=== PATIENT | male | born 1975 | race Caucasian/White ===

== ENCOUNTER 2024-08-12 06:34 | Inpatient (IN) | payer OTHER, SELFPAY ==
[2024-08-12] VITALS (11 sets, daily range): BP systolic 148–182; BP diastolic 81–107; PULSE 80; BMI 25.8
[2024-08-12 01:18] LABS: % Eosinophils 3.8 % (0-6); % Immature Granulocytes 1.9 % (0-0.5); % Lymphocytes 9.4 % (20.5-51.1); % Monocytes 7.9 % (1.7-9.3); Absolute Basophils 0.2 10^3/uL (0-0.2); Absolute Eosinophils 0.3 10^3/uL (0-0.7); Absolute Immature Granulocytes 0.2 10^3/uL (0-0.05); Absolute Lymphocytes 0.8 10^3/uL (1.2-3.4); Absolute Monocytes 0.7 10^3/uL (0.1-0.6); Absolute Neutrophils 6.6 10^3/uL (1.4-6.5); Hematocrit 40.5 % (39.0-52.0); Hemoglobin 14.6 g/dL (13.0-18.0); Mean Corpuscular Hgb 31.9 pg (27.0-31.0); Mean Corpuscular Volume 88.4 fL (80.0-94.0); Nucleated Red Blood Cells % 0 % (-); Red Blood Cell Count 4.58 10^6/uL (4.70-6.10); White Blood Cell Count 8.9 10^3/uL (4.8-10.8)
[2024-08-12 01:28] LABS: ALT (SGPT) 25 U/L (0-50); AST (SGOT) 37 U/L (17-59); Albumin 3.2 g/dl (3.5-5.0); Alkaline Phosphatase 125 U/L (38-126); Blood Urea Nitrogen 10 mg/dl (9-20); Carbon Dioxide 24 mmol/L (22-30); Chloride 103 mmol/L (98-107); Glucose 393 mg/dl (70-99); Potassium 3.5 mmol/L (3.5-5.1); Sodium 135 mmol/L (135-145); Total Bilirubin 2.2 mg/dl (0.2-1.3); Total Protein 6.2 g/dl (6.3-8.2); eGFR > 60.00
[2024-08-12 01:30] LABS: Alcohol None Detected
[2024-08-12 02:02] LABS: Mean Platelet Volume 10.6 fL (7.4-10.4); Platelet Count 80 10^3/uL (130-400)
--- NOTE | 2024-08-12 02:38 | ED.GENMED ---
History of Present Illness
General
Chief Complaint: Change in Mental Status
Source: patient
Exam Limitations: none
Time Seen by Provider: 08/12/24 02:34
History of Present Illness
History of Present Illness:
See MDM
Past History
Past History
ED Past Medical History: IDDM
ED Past Surgical History: None
Social History
Tobacco: Non-smoker
Alcohol: Chronic alcoholic
Phy Exam
Physical Exam
Physical Exam:
See MDM
Course
Orders/Labs/Results
Orders:
Orders
08/12/24 00:56
Alcohol Urgent
CMP [Comprehensive Metabolic Panel] Urgent
Complete Blood Count/With Diff Urgent
08/12/24 01:[address] [CT Head W/o Iv Contrast] Urgent
Comment:
Reason For Exam: change in mental status
08/12/24 02:38
0.9% Sodium Chloride 1000 ml [Nss] 1,000 ml IV BOLUS
Insulin Aspart [NOVOLOG vial] 5 units SC NOW STA
08/12/24 02:39
FOLic ACID [Folvite] 1 mg PO NOW STA
Thiamine HCl [Vitamin B1] 100 mg PO NOW STA
08/12/24 03:10
B-Hydroxybutyrate Stat
Comment: ADD ON
Glucose Stat
08/12/24 04:08
Add On- LAB Urgent
Tests Added?: B-hydroxybuterate
08/12/24 04:15
Urinalysis Reflex To Culture Urgent
Date Specimen was Collected: 08/12/24
Time Specimen was Collected: 04:14
Urine Drug Abuse Screen Urgent
Date Specimen was Collected: 08/12/24
Time Specimen was Collected: 04:14
Urine Microscopic Reflex Cult Urgent
08/12/24 04:47
Insulin Aspart [NOVOLOG vial] 5 units SC NOW STA
Abnormal Lab Results
08/12/24 08/12/24 08/12/24
00:56 02:56 03:10
RBC 4.58 L 10^6/uL
(4.70-6.10)
MCH 31.9 H pg
(27.0-31.0)
Plt Count 80 L 10^3/uL
(130-400)
MPV 10.6 H fL
(7.4-10.4)
Abs Immat Gran (auto) 0.2 H 10^3/uL
(0-0.05)
Absolute Neuts (auto) 6.6 H 10^3/uL
(1.4-6.5)
Absolute Lymphs (auto) 0.8 L 10^3/uL
(1.2-3.4)
Absolute Monos (auto) 0.7 H 10^3/uL
(0.1-0.6)
Immature Gran % 1.9 H %
(0-0.5)
Lymphocytes % 9.4 L %
(20.5-51.1)
Glucose 393 H mg/dl 328 H mg/dl
(70-99) (70-99)
Total Bilirubin 2.2 H mg/dl
(0.2-1.3)
Total Protein 6.2 L g/dl
(6.3-8.2)
Albumin 3.2 L g/dl
(3.5-5.0)
Ur Occult Blood Reflex
Urine Urobilinogen
Urine Glucose
Urine Albumin (Reflex)
B-Hydroxybutyrate 0.51 H mmol/L
(0.02-0.27)
POC Glucose 478 H* mg/dl
(70-99)
08/12/24
04:15
RBC
MCH
Plt Count
MPV
Abs Immat Gran (auto)
Absolute Neuts (auto)
Absolute Lymphs (auto)
Absolute Monos (auto)
Immature Gran %
Lymphocytes %
Glucose
Total Bilirubin
Total Protein
Albumin
Ur Occult Blood Reflex 2+ A
(Negative)
Urine Urobilinogen 2+ A
(Neg - 1+)
Urine Glucose 3+ A
(Negative)
Urine Albumin (Reflex) 3+ A
(Neg - Trace)
B-Hydroxybutyrate
POC Glucose
08/12/24 00:56
08/12/24 03:10
Vital Signs
Initial and Last Documented VS:
Initial Vital Signs
Temp Pulse Resp BP Pulse Ox
98.0 F 90 18 174/96 99
08/12/24 00:47 08/12/24 00:47 08/12/24 00:47 08/12/24 00:47 08/12/24 00:47
Last Documented Vital Signs
Temp Pulse Resp BP Pulse Ox
97.9 F 79 18 177/103 99
08/12/24 02:50 08/12/24 02:51 08/12/24 02:50 08/12/24 02:50 08/12/24 02:51
MDM/Problems Addressed
Differential Diagnosis Includes:
HPI and MDM Narrative:
49-year-old male presenting for evaluation of confusion. Patient comes from a snf house for alcohol recovery. He denies any recent alcohol or drug use. Patient states he feels confused. On exam, patient is ambulating without difficulty. He
is lying in bed without discomfort.
Patient found to be hyperglycemic. No evidence of DKA. Patient is clinically dry. Will give IV fluids and dose of insulin. Will obtain urinalysis and CT head
Physical exam
General: Well appearing and non-toxic
HEENT: protecting airway. Dry mucous membranes
Neck: appears supple
CV: No evidence of cyanosis
Resp: No accessory muscle use
Abd: Non-distended
Extremities: No deformities
Neuro: alert. No focal deficits. Appears mildly confused
Psych: Normal affect
Skin: Intact
Problems Addressed including Acute and Chronic Conditions affecting care:
1. Confusion
Acuity: acute
Prognosis: stable
Details: Will obtain CT head and urinalysis. Given his history of alcohol abuse, will give dose of thiamine and folic acid
2. Hyperglycemia
Acuity: acute
Prognosis: stable
Details: Will give dose of insulin. No evidence of DKA
Updates
CT head negative. Patient persistently hyperglycemic despite subcu insulin. Will give another dose of subcu insulin. Given the persistent symptoms, will admit
Differential Diagnosis (but not limited to): Hyperglycemia, drug abuse, intracranial hemorrhage
Testing considered: EKG
Drug therapy (if applicable): OTC meds, please see d/c instruction regarding Rx drugs
Amount and/or Complexity of Data Reviewed
Clinical info obtained from: Patient
External data reviewed: N/A
Labs I independently reviewed (but not limited to): Hyperglycemia, thrombocytopenia likely from alcohol abuse
Radiology: The CT scan was personally and independently reviewed. In addition, official CT report reviewed.
Pulse Ox: not hypoxic
EKG independently reviewed: N/A
Chemical Dependency Attendant: N/A
Critical Care: N/A
Risk of Complication:
Social Determinants of health: Good social support
Discussed with other providers: Hospitalist
Escalation of Care includes Admit/Obs: Given the persistent hyperglycemia and persistent confusion, will admit
Occasional wrong word or 'sound a like' substitutions may have occurred due to the inherent limitations of voice recognition software. Read the chart carefully and recognize, using context, where substitutions have occurred.
*Critical Care Note
Total Time (30-74mins, 75-104mins- exclusive of procedures): Not Applicable
ED Attending Note
-
Portions of this chart may have been created with voice recognition software.� Occasional wrong word or��sound alike� substitutions may have occurred due to the inherent limitations of voice recognition software.
Discharge Plan
Departure
Patient Disposition: Admit
Date of Disposition: 08/12/24
Time of Disposition: 04:51
Admit to: Med/Surg
Presentation/result/management discussed w/ accepting MD/DO: Hospitalist
Discharge Problem:
Acute confusion, Acute hyperglycemia
Referrals:
UNKNOWN - PT DOES,NOT KNOW [Family Provider] -
Interventions
Interventions:
*Risk Screen - Suicide Last Done: 08/12/24 03:08
*General Assessment Last Done: 08/12/24 03:08
*Neglect/Abuse Screening Last Done: 08/12/24 03:08
*ED COVID-19 Vaccine History Last Done: 08/12/24 01:10
ED Swallowing Screen Last Done: 08/12/24 03:03
Discharge Date and Time
Print Language: CYPRIOT
[2024-08-12] MEDS: NSS 1000 IV ×2 (02:53→09:05)
[2024-08-12] MEDS: VITAMIN B1 100 MG PO (02:54)
[2024-08-12] MEDS: FOLVITE 1 MG PO ×2 (02:54→09:05)
[2024-08-12 02:58] LABS: Glucose - Point of Care 478 mg/dl (70-99)
[2024-08-12] MEDS: NOVOLOG vial 5 UNITS SC ×2 (03:28→05:25)
[2024-08-12 04:03] LABS: Glucose 328 mg/dl (70-99)
[2024-08-12 04:26] LABS: Urine Albumin 3+ (Neg - Trace); Urine Bilirubin Negative (Negative); Urine Character Clear (Clear); Urine Color Yellow; Urine Glucose 3+ (Negative); Urine Ketone Negative (Negative); Urine Leukocyte Negative (Negative); Urine Nitrite Negative (Negative); Urine Occult Blood 2+ (Negative); Urine Urobilinogen 2+ (Neg - 1+); Urine pH 6.5 (5.0-9.0)
[2024-08-12 04:31] LABS: B-Hydroxybutyrate 0.51 mmol/L (0.02-0.27)
[2024-08-12 04:55] LABS: Urine Squamous Cell 0-2 /LPF (Few)
[2024-08-12 04:57] LABS: Urine Bacteria Few (Negative)
[2024-08-12 05:00] LABS: Amphetamines Negative (Negative); Barbiturates Negative (Negative); Benzodiazepines Negative (Negative); Buprenorphine Negative (Negative); Cocaine Negative (Negative); Marijuana Negative (Negative); Methadone Negative (Negative); Methamphetamines Negative (Negative); Opiates Negative (Negative); Phencyclidine Negative (Negative); Tricyclic Antidepressants Positive (Negative)
--- NOTE | 2024-08-12 05:35 | HPS.HSE ---
Family Physician
-
Family Physician: NOT KNOW UNKNOWN - PT DOES
Chief Complaint
-
Altered mental status
History of Present Illness
This is a 49-year-old who arrived to the emergency department via EMS for confusion.
History is very sparse as patient's condition prevents recovery of any useful information. Per EMS records the patient had called the police stating that this Was doing. He was living at a prison house for alcohol recovery at the time. Police
found that the patient never had a cath. EMS therefore transferred the patient to the emergency department for evaluation.
On my interview with the patient he endorsed high blood pressure and diabetes after being prompted. He did show me injection spots in his abdomen for subcutaneous insulin which she says he gives himself. However when I tried to admission about how
many units of insulin he supposed to give himself he has no idea. He states that he does not have any family that is parents have and his siblings have also . He states that he his mother 4 days ago. He states
his brother also 4 days ago. He said he got 2 days ago and has been looking for his ring. He endorsed alcohol but is unclear exactly how much. He states his last drink was several days ago. He says he a cane go to a 24 pack
case of alcohol drinking about 6 beers a day. He also mentions liquor but does not specify how much. He denies having been hospitalized for alcohol related maladies for the past. He currently endorses headache but otherwise denies any other
symptoms.
He was hypertensive to 170/110, he was nontachycardic his respiratory rate was 18 and he was afebrile. CBC was unremarkable except for a low platelet of 80. Electrolytes were also within normal limits. BUN and creatinine were within normal
limits. Initial fingerstick glucose was over 400. Blood glucose was elevated at 328. Total bilirubin was 2.2 AST and ALT were normal. He had a CT of the head which showed mild microangiopathy but no acute findings.
Medical History
Past Medical History
Past Medical History: Reports Other (Unable to obtain)
Past Surgical History: Reports Other (Unable to obtain)
Social History
Tobacco: Smoker
Alcohol: Chronic Alcoholic
Drug: Marijuana
Personal: Other (Unable to determine)
Living: With Roomate
Employment: Employed
Family History
Family History: Unable to Obtain
Allergies / Home Medications
Allergies reflects when Allergies were last updated in [facility].
Home Medications with original date entered in [facility]
Allergy/Medication List:
Allergies
Allergy/AdvReac Type Severity Reaction Status Date / Time
No Known Allergies Allergy Verified 08/12/24 02:46
No available medication list
Review of Systems
-
History Source: Patient
Constitutional: Reports No Symptoms
EENT: Reports No Symptoms
Respiratory: Reports No Symptoms
Cardiac: Reports No Symptoms
Abdomen/GI: Reports No Symptoms
: Reports No Symptoms
Musculoskeletal: Reports No Symptoms
Skin: Reports No Symptoms
Neurological: Reports Headache
Endocrine: Reports No Symptoms
Hematologic/Lymphatic: Reports No Symptoms
Psych: Reports Calm
Physical Exam
Vital Signs
Vital Signs
Temp Pulse Resp BP Pulse Ox
97.9 F 79 18 177/103 99
08/12/24 02:50 08/12/24 02:51 08/12/24 02:50 08/12/24 02:50 08/12/24 02:51
Physical Exam
General: Well Developed, No Apparent Distress, Comfortable and Conversant
HEENT: NormoCephalic, Anicteric, Moist mucous membranes and Atraumatic
Respiratory: Clear
Cardiac: S1/S2 and Regular Rhythm
Breast: Deferred by me
GI: Soft, Non Tender, Non Distended and Normal Bowel Sounds
Rectal: Deferred by Provider
Genito-urinary: Deferred by me
Musculoskeletal: No Clubbing, No Cyanosis and No Edema
Skin: Warm
Neuro: Awake, Alert and Oriented (oriented to person, place and time)
Hematologic/Lymphatic: No Lymphadenopathy
Psych: Calm
Laboratory Results
-
08/12/24 00:56
08/12/24 03:10
Laboratory Results
Total Bilirubin 2.2 mg/dl (0.2-1.3) H 08/12/24 00:56
AST 37 U/L (17-59) 08/12/24 00:56
ALT 25 U/L (0-50) 08/12/24 00:56
Alkaline Phosphatase 125 U/L (38-126) 08/12/24 00:56
Data Reviewed
-
CT Scan: Report Reviewed by me
Lab Data: Labs Reviewed by me
Impression/Plan
-
IMPRESSION:
Patient with h/o alcohol dependence brought to ED from alcohol recovery prison home for confusion. In ED he is alert and oriented and attempts to carry out a conversation. Follows simple commands. No focal deficits. Cranial nerves intact.
Pupils are equal and reactive. Poor memory and confabulates. Becomes tangential with extensive questioning. No tachycardia, hallucinations, tremors, tremulousness or diaphoresis to suggest acute ETOH withdrawal. Blood tests with low platelet,
elevated bili suggest chronic etoh dependence but no overt liver failure. He does not have agitated or stuporous encephalopathy. I suspect he has subacute or chronic neurological complications of ETOH versus underlying psychiatric illness. EToH
level is negative. Urine drug screen + for TCA. No family, friend or contact available for corroborating information.
PLAN:
1. Altered mental status - Suspect korsakoff syndrome versus Wernicke encephalopathy vs Toxic encephalopathy. This is not acute alcohol withdrawal syndrome.
- admit to telemetry
- thiamine 500mg iv q 8,folate, mvi
- ETOH withdrawal protocol
- check b12, folate, rpr, tsh
- u/a
- MRI brain in am
- neurology consultation
- psych consultation once cleared from toxic/metabolic encephalopathy
- cm for next of kin search
2. Diabetes - Hyperglycemia. Endorsed diabetes but unreliable history
- check a1c
- continue iv fluids for now
- lantus 5 daily and sliding scale insulin for now, oral agents pending a1c or additional home information
- check lipid panel and u/a as above
3. Hypertension -
- start low dose arb, titrate and additional agents as needed
- hydralazine for SBP > 180
DVT PPX - lovenox
Code status - full code
[2024-08-12] MEDS: NOVOLOG FLEXPEN-MODERATE RESISTANCE SC ×2 (08:53→17:42)
[2024-08-12] MEDS: THIAMINE INJECTION 255 MG IV ×2 (08:55→16:39)
[2024-08-12 08:58] LABS: Glucose - Point of Care 120 mg/dl (70-99)
[2024-08-12] MEDS: COZAAR 25 MG PO (09:05)
--- NOTE | 2024-08-12 09:10 | W.PN.UPDATE ---
Update Note
Progress Note Update
Patient seen and examined after postmidnight admission. Currently without acute complaints. Denies tremors, diaphoresis, hallucinations, etc. vital signs stable. Regular rate and rhythm, normal S1-S2. Clear to auscultation bilaterally. Cranials
2-12 are intact, nonfocal. Continue plan as outlined in the H&P done a few hours ago. Currently no indication for neurology consultation at this moment. Can consider later during hospitalization if needed.
[2024-08-12 09:12] LABS: Ammonia 31 umol/L (9-30)
[2024-08-12 09:13] LABS: Creatine Phosphokinase 192 U/L (55-170); Direct Bilirubin 0.6 mg/dl (0.0-0.4); GGTP 239 U/L (15-73); HDL Cholesterol 62 mg/dl; INR 1.13; LDL Cholesterol, Calculated 191 mg/dl; Magnesium 1.9 mg/dl (1.6-2.3); PT 14.8 Sec (11.4-14.6); Phosphorus 2.4 mg/dl (2.5-4.5); Total Cholesterol 278 mg/dl (50-199); Triglyceride 127 mg/dl (10-149); Very Low Density Lipoprotein 25 mg/dl (0-30)
[2024-08-12 09:14] LABS: APTT 28.6 Sec (23.4-35.0)
[2024-08-12 10:13] LABS: Glycohemoglobin (HgbA1c) 8.4 % (4.0-5.6)
--- NOTE | 2024-08-12 10:45 | CM ---
Addendum entered by Allyson Cardenas RN 08/12/24 18:33:
CM discussed possible [address] Hammond will consult psychiatry tomorrow to discuss 302 if patient attempts to leave again.
Addendum entered by Allyson Cardenas RN 08/12/24 14:08:
Dominic spoke with KAUSHIK Abdicase managers at [facility]. Trinidad provided Jia Alberts as patient's emergency contact [phone]. Jia is unknown relation to patient.
Trinidad stated that patient has been to [facility] and [facility] within the last year. She is unable to provide further information regarding patient's social situation.
Original Note:
CM spoke with patient. Patient stated that he feels very confused, but stated that he just got and his 's name is Sunil. The number provided for Sunil was not working. Patient had a cell phone with him, but was unable to unlock it as he
could not remember PIN number.
Patient did confirm that he is a patient of Dr. Toño Whitt in [facility]. CM spoke with PCP office. CM confirmed he is a patient of the practice. They do not have a contact for patient at this time; however, patient was recently at
[facility]. CM updated Dr. Randhawa.
CM left message for Case Management at [facility] for further collateral information.
[2024-08-12 12:54] LABS: Glucose - Point of Care 223 mg/dl (70-99)
[2024-08-12 13:19] LABS: TSH Reflex To Free T4 6.32 uIU/ml (0.47-4.68)
[2024-08-12 13:40] LABS: Glucose - Point of Care 179 mg/dl (70-99)
[2024-08-12] MEDS: NOVOLOG FLEXPEN-MODERATE RESISTANCE 1 UNITS SC (13:51)
[2024-08-12 13:55] LABS: Folate > 20.0 ng/ml (2.76-20); Vitamin B12 965 pg/ml (239-931)
[2024-08-12 14:29] LABS: Free T4 1.88 ng/dl (0.78-2.19)
--- NOTE | 2024-08-12 15:00 | PTCARENOTE ---
Received pt from ED via stretcher. Stretcher pulled in next to bed, pt able to stand and pivot into bed x1. AAOx1-2. Confused, forgetful. Pt stated, 'I can't believe I am on the [place]'. Bed alarm placed and plugged in. Call alves within close reach,
unable to verbalize understanding. Will cont to monitor.
[2024-08-12 15:48] LABS: Syphilis/T. pallidum Ab Reflex Negative (Negative)
[2024-08-12] MEDS: LOVENOX SC (17:42)
--- NOTE | 2024-08-12 17:42 | PTCARENOTE ---
Pt refused glucose and Lovenox. Pt increasingly agitated. Pt attempted to stand up and shake fist in this RN face, fell back down onto bed, unsteady. Pt stated, 'I have to go, I am getting tomorrow and I need to get my hair cut'. This RN
informed pt he will be staying the night. Pt raised voice at this RN and stated, 'You're all retarded, I am getting out of here no matter what' and slammed fist onto bed. made aware. MD at bedside.
--- NOTE | 2024-08-12 18:15 | W.PN.UPDATE ---
Update Note
Progress Note Update
Called to see because patient wanted to leave AMA.
Patient came in early hours of this morning.
Patient is alert and oriented to place, day and the month in the ER. When asked why he is in the hospital he says he is got bad blood which needs to come out.
In the immediate next sentence he says he is getting tomorrow and he needs to leave hospital. He can tell me where he is getting . He told the admitting doctor that he got 2 days ago and is being looking for his ring.
He also told admitting doctor that his mother 4 days ago and is brother 4 days ago.
Looking at the EMS record his chief complaint was fatigue and there was a change in mental status.
Dispatchnotes say patient was saying the roommate took his car. Complains of that the vehicle may be in the impound lot but could not explain further.
Upon EMS arrival police met EMS at the entry door the scene location is a recovery house for alcoholics. The patient called police to report his way car was stolen with other residents at the scene report the patient has not had awake alert the
location for the past 5 months. He was noted to have confused in conversation. Patient requested EMS due to suspecting medical emergency possibly diabetic.
He was not forthcoming with answers for all the questions by EMS.
So far in the hospital he had routine labs which showed increased blood sugars which are improved this afternoon. There is thrombocytopenia unclear if chronic. His first visit here. He had mild beta hydroxybutyrate acid but serum bicarb was
normal. Doubt DKA. His hemoglobin A1c is 8.4. He is eating and tolerating diet. He had an MRI of the brain which did not show any evidence of acute stroke.
His urine drug screen was positive for tricyclic otherwise negative. No alcohol was detected.
Apart from poorly controlled diabetes mellitus no obvious immediate medical acute findings to account for change in mental status. I suspect his current primary psychosis issue.
Consulted Dr Cali who is on-call.
If concern for safety of the patient she recommended 302. Advised me to contact crisis. 302 requires physician none and other person to sign.
Discussed with case management in the ER who knows him. He apparently had to inpatient psych hospitalizations in the past.
Patient currently having his dinner,.
Discussed with RN.
In case he threatens to leave please call security. Please fill in 302 paperwork in crisis center for 302. Psychiatrist with see in the morning.
[2024-08-12] MEDS: NSS IV (19:42)
[2024-08-12] MEDS: ATIVAN 1 MG IV (20:10)
[2024-08-12] MEDS: NSS (PRESERVATIVE FREE) 10 ML IV (20:10)
[2024-08-12 21:35] LABS: Glucose - Point of Care 319 mg/dl (70-99)
[2024-08-12] MEDS: NOVOLOG FLEXPEN 7 UNITS SC (22:36)
[2024-08-12] MEDS: THIAMINE INJECTION IV (22:41)
[2024-08-13 00:37] LABS: Glucose - Point of Care 225 mg/dl (70-99)
[2024-08-13 03:41] VITALS: BP 143/73
[2024-08-13] MEDS: NSS 1000 IV ×2 (05:44→14:52)
[2024-08-13 08:03] LABS: Glucose - Point of Care 198 mg/dl (70-99)
[2024-08-13 08:08] VITALS: BP 151/94
--- NOTE | 2024-08-13 08:11 | W.PN.HOSP.TC ---
Today's Communication/Plan
-
psych eval
Assessment / Plan
Assessment / Plan
Gen: NAD, AAOx3.
Eyes: EOMI, PERRLA, no scleral icterus.
Neck: supple.
CV: RRR, +S1/S2, no m/r/g.
Resp: CTAB, no rales, wheezes, or rhonchi.
Abd: +BS, soft, NT, ND
Skin: acneiform lesions on the face, posterior scalp
Neuro: CN 2-12 intact, non-focal.
Psych: Normal mood and affect.
MRI brain w/o: No acute intracranial abnormality. Parenchymal atrophy and chronic lacunar infarcts.
CXR: No radiographic evidence of acute cardiopulmonary abnormality. No metal or radiopaque foreign bodies within the chest.
Abd Xray: Non-obstructive bowel gas pattern. No metallic or radiopaque foreign bodies within the abdomen.
Abd U/S: Mildly enlarged and echogenic liver with lobular contour suspicious for cirrhosis. No hepatic lesions. Splenomegaly, presumably related to portal hypertension. Negative for cholelithiasis.
Acute change in mental status, likely due to acute psychosis:
-08/12/24 evening events noted
-psych consulted
-pt does not have decision making capacity. Cannot leave AMA. Should pt become aggressive/violent security needs to be called immediately.
-B12 965, folate > 20, TSH 6.32, fT4 1.88
-UDS POS for tricyclics
-syphilis NEG
DM2 with hyperglycemia:
-a1c 8.4%
-SSI/accuchecks/diabetic diet
-start Metformin 1000mg BID
Essential HTN:
-increase Losartan to 50mg daily
FULL/Lovenox
Total time spent on today's encounter was 50 minutes which included time spent in counseling the patient/family regarding diagnosis and treatment plan as listed above, goals of care, and symptom management. Case was discussed with nursing staff,
specialists, and care coordinators/case management. All labs and imaging personally reviewed by me. Remainder the time spent in detailed review of previous records, lab data, imaging, and other medical provider documentation.
Anticipated Discharge: Within 24 hours
Subjective/Interval History
-
Date of Service: August 13, 2024
Denies CP/SOB. Reports visual hallucinations of his ex-girlfriend.
Objective Data
-
Vital Signs:
Vital Signs
Temp Pulse Resp BP Pulse Ox
97.9 F 79 16 151/94 98
08/13/24 08:08 08/13/24 08:08 08/13/24 08:08 08/13/24 08:08 08/13/24 08:08
I&O
08/12/24 08/13/24 08/14/24
06:59 06:59 06:59
Intake Total 960 / 960
Output Total 450 / 450
Balance -450 / -450 960 / 960
[2024-08-13] MEDS: NOVOLOG FLEXPEN-MODERATE RESISTANCE 1 UNITS SC ×2 (08:14→16:24)
[2024-08-13] MEDS: THIAMINE INJECTION 255 MG IV ×2 (08:15→16:18)
[2024-08-13] MEDS: FOLVITE 1 MG PO (08:15)
[2024-08-13] MEDS: COZAAR 25 MG PO (08:15)
[2024-08-13] MEDS: ATIVAN 1 MG PO (08:16)
[2024-08-13 08:47] LABS: Hematocrit 35.8 % (39.0-52.0); Hemoglobin 12.8 g/dL (13.0-18.0); Mean Corp Hgb Conc. 35.8 g/dL (33.0-37.0); Mean Corpuscular Hgb 31.7 pg (27.0-31.0); Mean Corpuscular Volume 88.6 fL (80.0-94.0); Mean Platelet Volume 10.2 fL (7.4-10.4); Platelet Count 70 10^3/uL (130-400); Red Blood Cell Count 4.04 10^6/uL (4.70-6.10); Red Cell Dist. Width 14.1 % (11.5-14.5)
[2024-08-13 09:03] LABS: ALT (SGPT) 21 U/L (0-50); AST (SGOT) 31 U/L (17-59); Albumin 2.6 g/dl (3.5-5.0); Alkaline Phosphatase 103 U/L (38-126); Blood Urea Nitrogen 10 mg/dl (9-20); Calcium 8.3 mg/dl (8.4-10.2); Carbon Dioxide 24 mmol/L (22-30); Chloride 110 mmol/L (98-107); Estimated Creatinine Clearance 109 ml/min; Glucose 186 mg/dl (70-99); Potassium 3.2 mmol/L (3.5-5.1); Sodium 137 mmol/L (135-145); Total Bilirubin 1.7 mg/dl (0.2-1.3); Total Protein 5.1 g/dl (6.3-8.2); eGFR > 60.00
--- NOTE | 2024-08-13 11:09 | PTCARENOTE ---
MSAS 5 this am. ativan given pt now resting comfortably. K of 3.2 md aware
[2024-08-13 11:49] LABS: Glucose - Point of Care 294 mg/dl (70-99)
[2024-08-13 11:52] VITALS: BP 148/87
--- NOTE | 2024-08-13 12:45 | CON.MD ---
Consultation - Medical
-
Chart reviewed/ pt seen -45 minutes
This 49 year old white male was admitted to the hospital yesterday after presenting to the ER in a confused state. He wanted to sign out of the hospital yesterday, but was convinced to stay until today.
Pt has been making bizarre statement, claiming he is supposed to get today, that he saw his mom and brother 4 days ago not moving, frozen, but when he looked later they were not there.
He says that he has been living at a 'Sober House'- at [address] [place] [address] Road. He says there is no name for this sober house.
Cannot tell me when he last had a drink, but says he typically drinks '6 beers and [place].'
Pt is on Seroquel 300 mg HS and Trazodone 100 mg HS. Says his dr is Dr Whitt, from [facility]. Pt does not know his diagnosis.
Was hospitalized a few times for 'cocaine and alcohol.'
MSE-
Somnolent, but arousable. malodorous.
Thoughts are lillogical; pt confabulates. No paranoia, no suicidal or homicidal ideation.
He cannot count backwards from 10. However he is oriented to date and year. His short term memory is severely impaired. He believes that his memory was harmed by 'gadolinium dye from MRI's.'
Insight and judgment poor.
A/P- Wernicke's encephalopathy likely.
Would restart Seroquel 300 mg.
Pt not able to care for himself at this time, but I do not see grounds for a 302 commitment. He may need an assessment for incompetence. His condition is most likely related to alcohol and drug abuse.
302 commitment would not be appropriate without a primary psychiatric diagnosis.
Social work should try to reach our to any family members if they can be identified.
--- NOTE | 2024-08-13 12:47 | CON.MD ---
Consultation - Medical
-
error
[2024-08-13] MEDS: KCL 40 MEQ PO (12:51)
[2024-08-13] MEDS: NOVOLOG FLEXPEN-MODERATE RESISTANCE 5 UNITS SC (12:51)
[2024-08-13] MEDS: SEROQUEL 300 MG PO (14:51)
[2024-08-13 16:03] VITALS: BP 157/86
[2024-08-13] MEDS: LOVENOX 40 MG SC (16:18)
[2024-08-13] MEDS: GLUCOPHAGE 1000 MG PO (16:18)
[2024-08-13] MEDS: DUPHALAC/CHRONULAC 20 GRAMS PO (16:20)
[2024-08-13 16:24] LABS: Glucose - Point of Care 183 mg/dl (70-99)
[2024-08-13] MEDS: NICODERM TRANSDERMAL 14 MG TRANSDERM (17:23)
[2024-08-13 19:10] VITALS: BP 146/84
[2024-08-13 23:15] VITALS: BP 136/67
[2024-08-14] MEDS: THIAMINE INJECTION 255 MG IV ×2 (01:18→09:10)
[2024-08-14 03:24] VITALS: BP 157/88
[2024-08-14] MEDS: NSS 1000 IV (04:15)
[2024-08-14] MEDS: ATIVAN 1 MG PO ×2 (05:52→10:13)
[2024-08-14 07:45] VITALS: BP 169/98
[2024-08-14 08:17] LABS: Hematocrit 38.1 % (39.0-52.0); Hemoglobin 12.8 g/dL (13.0-18.0); Mean Corp Hgb Conc. 33.6 g/dL (33.0-37.0); Mean Corpuscular Hgb 31.8 pg (27.0-31.0); Mean Corpuscular Volume 94.8 fL (80.0-94.0); Mean Platelet Volume 10.9 fL (7.4-10.4); Platelet Count 59 10^3/uL (130-400); Red Blood Cell Count 4.02 10^6/uL (4.70-6.10); Red Cell Dist. Width 14.4 % (11.5-14.5); White Blood Cell Count 4.6 10^3/uL (4.8-10.8)
[2024-08-14 08:42] LABS: Blood Urea Nitrogen 11 mg/dl (9-20); Calcium 8.4 mg/dl (8.4-10.2); Carbon Dioxide 18 mmol/L (22-30); Chloride 113 mmol/L (98-107); Estimated Creatinine Clearance 123 ml/min; Glucose 286 mg/dl (70-99); Potassium 3.5 mmol/L (3.5-5.1); Sodium 138 mmol/L (135-145); eGFR > 60.00
[2024-08-14] MEDS: COZAAR 50 MG PO (09:07)
[2024-08-14] MEDS: FOLVITE 1 MG PO (09:08)
[2024-08-14] MEDS: NOVOLOG FLEXPEN-MODERATE RESISTANCE SC ×2 (09:08→11:45)
[2024-08-14] MEDS: GLUCOPHAGE 1000 MG PO (09:08)
[2024-08-14] MEDS: DUPHALAC/CHRONULAC 20 GRAMS PO (09:08)
[2024-08-14] MEDS: NICODERM TRANSDERMAL 14 MG TRANSDERM (09:11)
--- NOTE | 2024-08-14 10:33 | W.PN.HOSP.TC ---
Today's Communication/Plan
-
d/c
Assessment / Plan
Assessment / Plan
Gen: NAD, AAOx3.
Eyes: EOMI, PERRLA, no scleral icterus.
Neck: supple.
CV: RRR, +S1/S2, no m/r/g.
Resp: CTAB, no rales, wheezes, or rhonchi.
Abd: +BS, soft, NT, ND
Skin: acneiform lesions on the face, posterior scalp
Neuro: CN 2-12 intact, non-focal.
Psych: Normal mood and affect.
MRI brain w/o: No acute intracranial abnormality. Parenchymal atrophy and chronic lacunar infarcts.
CXR: No radiographic evidence of acute cardiopulmonary abnormality. No metal or radiopaque foreign bodies within the chest.
Abd Xray: Non-obstructive bowel gas pattern. No metallic or radiopaque foreign bodies within the abdomen.
Abd U/S: Mildly enlarged and echogenic liver with lobular contour suspicious for cirrhosis. No hepatic lesions. Splenomegaly, presumably related to portal hypertension. Negative for cholelithiasis.
Acute change in mental status, likely due to acute psychosis:
-08/12/24 evening events noted
-psych following, no indication for 302
-today pt has decision making capacity
-B12 965, folate > 20, TSH 6.32, fT4 1.88
-UDS POS for tricyclics
-syphilis NEG
DM2 with hyperglycemia:
-a1c 8.4%
-SSI/accuchecks/diabetic diet
-cont Metformin 1000mg BID
Essential HTN:
-cont Losartan 50mg daily
-start Norvasc 5
FULL/Lovenox
Medically cleared for d/c, case management aware.
Anticipated Discharge: Today
Subjective/Interval History
-
Date of Service: August 14, 2024
Objective Data
-
Labs:
Laboratory Results
08/14/24
06:32
WBC 4.6 L
Hgb 12.8 L
Hct 38.1 L
Plt Count 59 L
Sodium 138
Potassium 3.5
Chloride 113 H
Carbon Dioxide 18 L
BUN 11
Creatinine 0.8
Glucose 286 H
Calcium 8.4
Vital Signs:
Vital Signs
Temp Pulse Resp BP Pulse Ox
98 F 86 16 169/98 100
08/14/24 07:45 08/14/24 07:45 08/14/24 07:45 08/14/24 07:45 08/14/24 07:45
I&O
08/13/24 08/14/24 08/15/24
06:59 06:59 06:59
Intake Total 960 / 960 960 / 960
Output Total 1350 / 1350
Balance 960 / 960 -390 / -390
[2024-08-14] MEDS: NORVASC 5 MG PO (11:41)
[2024-08-14] MEDS: NSS IV (11:55)
--- NOTE | 2024-08-14 12:04 | W.PN.UPDATE ---
Update Note
Progress Note Update
patient seen chart reviewed. the patient does continue to complain of visual hallucinations. he is denying that he is suicidal or depressed. he says he does not hear things. he denies that he has used etoh 'except for a sip' for about six years
and he has not used mj the only other drug he used to use in three years. he has had some rx psychiatrically as he has taken seroquel in the past and he does have a doctor in [place]. he has a place to live in a recovery house in [facility].
he wants to leave . he is fully oriented. he does not appear to be a danger to himself or others. he has a place to live. i did tell him that visual hallucinations are not a common primary psych sx and can be due to neurological issues, detox,
substance abuse and eye issues (macular degeneration glaucoma etc even diabetes if affecting his extraoccularl muscles and causing diplopia which he could interpret as a hallucination. if they continue he should at the very least have his eyes
examined and talk to his pcp . he should continue to remain sober.
[2024-08-14 12:18] VITALS: BP 172/102
--- NOTE | 2024-08-14 13:00 | CM ---
Spoke with attending who stated that patient is medically cleared for discharge. Met with patient who is agreeable to discharge and confirmed that he will go back to his alcohol rehab. He confirmed transportation, stating that he would be able to
get there by [employer]. FAULKNER and attending updated.
Plan: Case management will continue to follow and assist with discharge planning. Back to rehab.
--- NOTE | 2024-08-14 13:19 | W.PN.UPDATE ---
Update Note
Progress Note Update
Patient with diagnosis of Warnicke's encephalopathy as per psychiatry. Would continue IV thiamine today to complete 3 days and switched over to oral alone tomorrow. Will start oral thiamine in addition to IV thiamine today. Also, will need
diabetes nurse practitioner to see the patient.
--- NOTE | 2024-08-14 14:01 | PTCARENOTE ---
patient at this time notified RN that he would like to leave AMA. Dr Randhawa notified. IVs removed, telemetry removed. AMA paper signed. Patient safely walked to from [facility] with this RN.
--- NOTE | 2024-08-16 16:17 | W.DCSUMMARY ---
Discharge Summary
Discharge Data
Date of Admission: 08/12/24
Date of Discharge: 08/14/24
-
Pending Results: No
Hospital Course
Primary diagnoses:
Acute change in mental status likely due to acute Wernicke's encephalopathy
Type 2 diabetes mellitus with hyperglycemia
Essential hypertension
Secondary diagnoses:
h/o substance abuse, reportedly cocaine and alcohol
Consults:
Psychiatry
Imaging:
MRI brain w/o: No acute intracranial abnormality. Parenchymal atrophy and chronic lacunar infarcts.
CXR: No radiographic evidence of acute cardiopulmonary abnormality. No metal or radiopaque foreign bodies within the chest.
Abd Xray: Non-obstructive bowel gas pattern. No metallic or radiopaque foreign bodies within the abdomen.
Abd U/S: Mildly enlarged and echogenic liver with lobular contour suspicious for cirrhosis. No hepatic lesions. Splenomegaly, presumably related to portal hypertension. Negative for cholelithiasis.
49-year-old male presented with chief complaint of altered mental status outlined in the H&P done on admission. Hospital discharge problems:
Acute change in mental status, likely due to acute Wernicke's encephalopathy: Workup was notable for B12 965, folate > 20, TSH 6.32, fT4 1.88, UDS POS for tricyclics, syphilis NEG. patient was seen in consultation by psychiatry there is no
indication for a 302. Patient was treated with high-dose IV thiamine. Patient left AGAINST MEDICAL ADVICE (at which time he did have decision-making capacity) before inpatient treatment was completed.
DM2 with hyperglycemia: The patient's a1c was 8.4%. He received sliding scale insulin while hospitalized. He was placed on metformin.
Essential HTN: The patient was started on losartan and Norvasc while hospitalized.
The patient left AGAINST MEDICAL ADVICE on August 14, 2024.
Discharge Plan
-
Patient Disposition: Home (Routine Discharge)
Discharge Diagnosis/Procedures: Acute change in mental status, possibly Wernicke's encephalopathy
Condition: Good
Diet: Diabetic, Carb Controlled
Activity: No restrictions
Driving Restrictions: As prior to admission
Blood Work: BMP, magnesium, CBC in 1 week, prescription from PCP
Activity Restrictions/Additional Instructions:
You need to check your blood glucose 30 minutes before meals and before bedtime and keep a diary for your primary care physician.
Referrals:
UNKNOWN - PT DOES,NOT KNOW [Family Provider] - in less than 1 week
Prescriptions:
New
folic acid 1 mg Tablet
1 mg PO DAILY Qty: 0 0RF
thiamine HCl (vitamin B1) 100 mg capsule
100 mg PO DAILY Qty: 30 0RF
Continued
quetiapine [Seroquel] 300 mg Tablet
300 mg PO HS
trazodone 100 mg Tablet
100 mg PO HS
insulin lispro [Humalog U-100 Insulin] 100 unit/mL Solution
26 sliding scale dose SC AC
hydroxyzine pamoate 25 mg Capsule
50 mg PO DAILY
lactulose 10 gram/15 mL Solution
20 g PO TID
insulin glargine [Basaglar KwikPen U-100 Insulin] 100 unit/mL (3 mL) Insulin Pen
60 unit SC QPM
amlodipine [Norvasc] 5 mg Tablet
5 mg PO DAILY Qty: 30 0RF
carvedilol [Coreg] 6.25 mg Tablet
6.25 mg PO BID Qty: 60 0RF
spironolactone 100 mg Tablet
100 mg PO DAILY Qty: 30 0RF
Discharge Orders:
Discharge Patient (As Directed); Ordered 08/14/24
Ordered By: Avtar Randhawa
Discharge Date and Time
Discharge Date/Time: 08/14/24 15:05
Print Language: ARABIC
== END 2024-08-14 15:05 | disposition left against medical advice (07) | DRG 641 ==
LOC: 3 WEST ACU 06:34
PROVIDERS: ADMITTING PHYSICIAN Internal Medicine; ATTENDING PHYSICIAN Internal Medicine; CONSULT PHYSICIAN Psychiatry & Neurology Psychiatry; EMERGENCY PHYSICIAN Student in an Organized Health Care Education/Training Program
DX: E51.2 Wernicke's encephalopathy (principal); K76.6 Portal hypertension; R41.82 Altered mental status, unspecified; E11.65 Type 2 diabetes mellitus with hyperglycemia; F10.20 Alcohol dependence, uncomplicated; F14.10 Cocaine abuse, uncomplicated; D69.59 Other secondary thrombocytopenia; I10 Essential (primary) hypertension; F17.200 Nicotine dependence, unspecified, uncomplicated; R44.1 Visual hallucinations; R16.1 Splenomegaly, not elsewhere classified; Z63.4 Disappearance and death of family member; Z53.29 Procedure and treatment not carried out because of patient's decision for other reasons; Z79.4 Long term (current) use of insulin
CPT/HCPCS: 70450; 70551; 71046; 74018; 76700; 80048; 80053; 80061; 80306; 81003; 81015; 82010; 82077; 82140; 82248; 82550; 82607; 82746; 82947; 82962; 82977; 83036; 83735; 84100; 84439; 84443; 85025; 85027; 85610; 85730; 86780; 87070; 96372; 97162; 99285

== ENCOUNTER 2024-08-17 08:08 | Emergency (ER) | payer OTHER, SELFPAY ==
[2024-08-17 12:26] LABS: Glucose - Point of Care 237 mg/dl (70-99)
--- NOTE | 2024-08-17 12:26 | ED.GENMED ---
History of Present Illness
<DO Braulio Camilo Filed: 08/18/24 22:24>
General
Chief Complaint: Fall
Source: patient
Time Seen by Provider: 08/17/24 09:34
History of Present Illness
History of Present Illness:
49-year-old male presents to the emergency room complaining of falling down steps and striking his head. Patient states he was carrying a laundry basket when he lost his balance and fell. He sustained a laceration to his left ear. Patient also
complaining of left knee pain. He denies loss of consciousness. He does not take any oral anticoagulants but he does have a history of low platelet count. Patient has been able to weight-bear on the left leg but does have pain with movement.
Past History
<DO Braulio Camilo Last Filed: 08/18/24 22:24>
Past History
ED Past Medical History: IDDM
ED Past Surgical History: None
Social History
Tobacco: Non-smoker
Alcohol: Chronic alcoholic
Phy Exam
<DO Braulio Camilo Last Filed: 08/18/24 22:24>
Physical Exam
Physical Exam:
General: Awake, Alert, Oriented X3. No acute distress.
Vitals: unremarkable
Head: Atraumatic
Ear: Laceration noted to the lobule of the ear extending up towards the inner aspect of the helix.
Face: Multiple abrasions to the left cheek
Eyes: Pupils equal, EOMI
Throat: Airway intact, no exudates
Neck: Trachea midline
Lungs: Clear and equal b/l
Heart: Regular rate, no murmurs
Abd: Soft, Nontender, No pulsatile mass
Neuro: Nonfocal
Skin: Warm, dry, no rash
Extremities: pulses equal b/l, no edema
Course
<DO Braulio Camilo Last Filed: 08/18/24 22:24>
Orders/Labs/Results
Orders:
Orders
08/17/24 12:08
CT Head W/o Iv Contrast Urgent
Comment:
Reason For Exam: fall,head injury
08/17/24 12:31
Knee, Left 4 or More Views [CR Knee - Left 4 Or More View*] Urgent
Comment:
Reason For Exam: pain after a fall
08/17/24 14:36
Ariel Wrap Left-Treatment ONCE
08/17/24 15:55
Crutches-Treatment ONCE
Knee Immobilizer Left-Treatmen ONCE
08/17/24 16:00
Lidocaine [Lidocaine 4% Patch] 1 patch TOPICAL ONCE ONE
Apply Lidocaine patch(s) to:: knee
08/17/24 16:03
Bacitracin Zinc [Bacitracin Ointment] 1 applic .ROUTE .STK-MED ONE
08/17/24 16:05
Tetanus/Diphth/Acelpertussis [Adacel] 0.5 ml IM .ONCE ONE
Abnormal Lab Results
08/17/24
12:25
POC Glucose 237 H mg/dl
(70-99)
Vital Signs
Initial and Last Documented VS:
Initial Vital Signs
Temp
97.5 F
08/17/24 08:20
Last Documented Vital Signs
Temp Pulse Resp BP Pulse Ox
97.5 F 74 18 150/74 99
08/17/24 08:20 08/17/24 12:48 08/17/24 12:48 08/17/24 12:48 08/17/24 12:48
<Honorio Mederos MD - Last Filed: 08/17/24 16:05>
Orders/Labs/Results
Orders:
Orders
08/17/24 12:08
CT Head W/o Iv Contrast Urgent
Comment:
Reason For Exam: fall,head injury
08/17/24 12:31
Knee, Left 4 or More Views [CR Knee - Left 4 Or More View*] Urgent
Comment:
Reason For Exam: pain after a fall
08/17/24 14:36
Ariel Wrap Left-Treatment ONCE
08/17/24 15:55
Crutches-Treatment ONCE
Knee Immobilizer Left-Treatmen ONCE
08/17/24 16:00
Lidocaine [Lidocaine 4% Patch] 1 patch TOPICAL ONCE ONE
Apply Lidocaine patch(s) to:: knee
08/17/24 16:03
Bacitracin Zinc [Bacitracin Ointment] 1 applic .ROUTE .STK-MED ONE
08/17/24 16:05
Tetanus/Diphth/Acelpertussis [Adacel] 0.5 ml IM .ONCE ONE
Abnormal Lab Results
08/17/24
12:25
POC Glucose 237 H mg/dl
(70-99)
Vital Signs
Initial and Last Documented VS:
Initial Vital Signs
Temp
97.5 F
08/17/24 08:20
Last Documented Vital Signs
Temp Pulse Resp BP Pulse Ox
97.5 F 74 18 150/74 99
08/17/24 08:20 08/17/24 12:48 08/17/24 12:48 08/17/24 12:48 08/17/24 12:48
Procedures
Roblt;Willis Parra, DO - Last Filed: 08/18/24 22:24>
Laceration Closure
Left Ear:
Size of Wound in cm: 2
Description of Wound Edges: ragged and flap-poorly vascularized
Preparation: cleaned with saline
Anesthesia: 1% Lidocaine
Revision/Debridement: minor revision and debrided
Wound exploration: explored to base- no FB
Type of Closure: single layer closure
Skin Closure Material: 5-0 nylon
Number of sutures: 13
Additional information:
Major portion of the laceration was a straightforward laceration but the most inferior aspect involved a flap which was closed with a corner stitch. There is also a separate laceration to the tip of the lobule. This had a small flap which appeared
dusky and poorly vascularized. This was debrided and the wound closed with 2 sutures. r
<Willis Parra DO - Last Filed: 08/18/24 22:24>
MDM/Problems Addressed
Differential Diagnosis Includes:
Left ear laceration, concussion, subdural, left knee fracture
<Willis Parra DO - Last Filed: 08/18/24 22:24>
*Critical Care Note
Total Time (30-74mins, 75-104mins- exclusive of procedures): Not Applicable
<Honorio Mederos MD - Last Filed: 08/17/24 16:05>
Update Note
Update Note:
UPDATE (Honorio Mederos MD)
I have seen and evaluated the patient after signout and reviewed all labs and imaging.
Focused HPI: 49-year-old male presenting after mechanical fall as described above. Laceration to the left ear. Also injured left knee. CT head negative. He has contusion and effusion in the left knee, x-ray read pending. Laceration repaired.
Tetanus updated.
Physical exam: Awake alert. Ear laceration status postrepair with sutures in place. He has an abrasion to the left knee/kruger, contusion to the left knee with joint effusion. He is able to move knee through reasonable range of motion somewhat
limited by swelling.
Medical Decision Making: Patient presented after a fall with head strike, laceration to the ear which was repaired. Tetanus updated. CT head negative. Injured left knee, x-ray read pending on signout�reviewed radiology report patient does have a
small vertical patellar fracture. Will place in knee immobilizer. Provide crutches. Spoke to patient about RICE. Referred to orthopedic for outpatient follow-up. All questions answered.
ED Attending Note
<Willis Parra DO - Last Filed: 08/18/24 22:24>
-
Portions of this chart may have been created with voice recognition software.� Occasional wrong word or��sound alike� substitutions may have occurred due to the inherent limitations of voice recognition software.
Discharge Plan
Departure
Patient Disposition: Home (Routine Discharge)
Date of Disposition: 08/17/24
Time of Disposition: 14:33
Patient with high blood pressure during this ER visit?: No
Condition: Good
Discharge Problem:
Laceration of ear, Head injury, Abrasion of knee, left, Patellar fracture
Instructions: Head Injury in Adults (DC), Laceration Repair With Stitches (DC), Skin Abrasions (DC), Patella Fracture ED
Prescriptions:
New
lidocaine [Lidoderm] 5 % adhesive patch,medicated
1 patch topical DAILY Qty: 15 0RF
No Action
carvedilol [Coreg] 6.25 mg Tablet
6.25 mg PO BID
quetiapine [Seroquel] 300 mg Tablet
300 mg PO HS
spironolactone 100 mg Tablet
100 mg PO DAILY
amlodipine [Norvasc] 5 mg Tablet
5 mg PO DAILY
trazodone 100 mg Tablet
100 mg PO HS
insulin lispro [Humalog U-100 Insulin] 100 unit/mL Solution
26 sliding scale dose SC AC
hydroxyzine pamoate 25 mg Capsule
50 mg PO DAILY
lactulose 10 gram/15 mL Solution
20 g PO TID
insulin glargine [Basaglar KwikPen U-100 Insulin] 100 unit/mL (3 mL) Insulin Pen
50 unit SC HS
Referrals:
Peter Hidalgo MD [Active] - Call in 1-3 days for appt (Orthopedic doctor)
Toño Whitt MD [Family Provider] -
Activity Restrictions/Additional Instructions:
Your stitches need to be removed in 7 days. You should follow-up with the orthopedic doctor within the next week to have your knee reevaluated.
Interventions
Interventions:
*Risk Screen - Suicide Last Done: 08/17/24 08:20
*General Assessment Last Done: 08/17/24 08:20
*Neglect/Abuse Screening Last Done: 08/17/24 08:20
*ED COVID-19 Vaccine History Last Done: 08/17/24 08:20
Discharge Date and Time
Print Language: LAO
[2024-08-17 12:48] VITALS: BP 150/74
[2024-08-17] MEDS: LIDOCAINE 4% PATCH 1 PATCH TOPICAL (16:13)
[2024-08-17] MEDS: ADACEL 0.5 ML IM (16:17)
== END 2024-08-17 16:01 | disposition home or self-care (01) ==
LOC: EMR 08:08
PROVIDERS: EMERGENCY PHYSICIAN Emergency Medicine; FAMILY PHYSICIAN Family Medicine
DX: S09.90XA Unspecified injury of head, initial encounter (principal); S80.212A Abrasion, left knee, initial encounter; S82.002A Unspecified fracture of left patella, initial encounter for closed fracture; S01.312A Laceration without foreign body of left ear, initial encounter; W10.9XXA Fall (on) (from) unspecified stairs and steps, initial encounter; Z23 Encounter for immunization
CPT/HCPCS: 99285; 13151; 90471; 70450; 73564; 82962; 90715

== ENCOUNTER 2024-08-22 09:20 | Inpatient (IN) | payer OTHER, SELFPAY ==
[2024-08-18 16:55] VITALS: BP 170/96; BMI 27.1
--- NOTE | 2024-08-18 17:05 | ED.GENMED ---
History of Present Illness
General
Chief Complaint: Failure to Thrive
Source: patient and ambulance crew
Time Seen by Provider: 08/18/24 16:58
History of Present Illness
History of Present Illness:
49-year-old male presents to the emergency room from [facility]. Patient was discharged from the emergency room yesterday after suffering a fall. He had facial lacerations repaired, head CT which was unremarkable and a left knee x-ray which
showed nondisplaced fracture to the patella. He was placed in a knee immobilizer and discharged with crutches. Evidently the patient is not able to get around with crutches and the [facility] feels they cannot provide him with the assistance
they believe he needs therefore they have sent him back to the emergency room. Patient is complaining of left knee pain otherwise no other complaints.
Past History
Past History
ED Past Medical History: IDDM
ED Past Surgical History: None
Social History
Tobacco: Non-smoker
Alcohol: Chronic alcoholic
Phy Exam
Physical Exam
Physical Exam:
General: Awake, Alert, Oriented X3. No acute distress.
Vitals: unremarkable
Head: Atraumatic
Eyes: Pupils equal, EOMI
Ear: Sutured laceration intact
Throat: Airway intact, no exudates
Neck: Trachea midline
Lungs: Clear and equal b/l
Heart: Regular rate, no murmurs
Abd: Soft, Nontender, No pulsatile mass
Neuro: No focal weakness
Skin: Warm, dry, no rash
Extremities: pulses equal b/l, no edema. Swelling noted about the left knee. Pain with extension.
Course
Orders/Labs/Results
Orders:
Orders
08/18/24 Dinner
Regular
At Your Request: Full Participation
08/18/24 17:07
Alcohol Urgent
Complete Blood Count/With Diff Urgent
Comprehensive Metabolic Panel Urgent
08/18/24 17:45
Insulin Aspart [NOVOLOG vial] 5 units SC NOW STA
Potassium Chloride [KCl] 40 meq PO NOW STA
08/18/24 19:42
Insulin Aspart [NOVOLOG vial] 5 units SC NOW STA
08/18/24 20:37
Admit/Transfer Patient As Directed
Co-Sign Provider:
Level of Care: Observation services
Assign to:: Medical/Surgical
Physician / Group: lisbeth
Diagnosis: patellar fracture
PRN Pain Medication Management As Directed
May give lesser potent ordered pain med per pt: Yes
preference::
Protocol:: Medication orders for pain may be administered in a
manner that supports deferring to patient preference
when the pt is:
- Requesting an ordered lesser potent pain medication.
Least to most potent pain medications are defined
as: acetaminophen < NSAID < tramadol < opioids
(morphine, oxycodone, hydromorphone).
- Requesting a lesser dose of the same medication IF
ORDERED.
- Requesting a less intrusive route of administration
if both routes are prescribed by the provider (PO <
IV).
08/18/24 20:38
Code Status As Directed
Resuscitation Status: Full Code
08/18/24 21:51
Acetaminophen [Tylenol] 650 mg PO Q4HPRN PRN
08/18/24 21:51
Case Management Consult ONCE
Case Management Consult: Discharge Planning
Activity As Directed
Activity Level: As Tolerated
Vital Signs As Directed
Frequency: Per unit guidelines
Ot Eval And Treat Routine
Pt Eval And Treat Routine
Activity Level: As Tolerated
DX Deep Vein Thrombosis Video Routine
08/19/24 06:00
Complete Blood Count/With Diff IN AM
Comprehensive Metabolic Panel IN AM
08/19/24 08:00
Heparin 5,000 units SC Q12
Abnormal Lab Results
08/18/24 08/18/24
17:07 19:35
RBC 4.28 L 10^6/uL
(4.70-6.10)
Hct 37.8 L %
(39.0-52.0)
MCH 31.5 H pg
(27.0-31.0)
Plt Count 74 L D 10^3/uL
(130-400)
MPV 10.9 H fL
(7.4-10.4)
Abs Immat Gran (auto) 0.1 H 10^3/uL
(0-0.05)
Absolute Lymphs (auto) 0.8 L 10^3/uL
(1.2-3.4)
Absolute Monos (auto) 0.8 H 10^3/uL
(0.1-0.6)
Immature Gran % 0.8 H %
(0-0.5)
Lymphocytes % 9.9 L %
(20.5-51.1)
Monocytes % 10.2 H %
(1.7-9.3)
Sodium 132 L mmol/L
(135-145)
Potassium 3.3 L mmol/L
(3.5-5.1)
Glucose 320 H mg/dl
(70-99)
Total Bilirubin 2.3 H mg/dl
(0.2-1.3)
Total Protein 6.0 L g/dl
(6.3-8.2)
Albumin 3.1 L g/dl
(3.5-5.0)
POC Glucose 321 H mg/dl
(70-99)
08/18/24 17:07
08/18/24 17:07
Vital Signs
Initial and Last Documented VS:
Initial Vital Signs
Temp Pulse Resp BP Pulse Ox
97.4 F 80 14 170/96 100
08/18/24 16:55 08/18/24 16:55 08/18/24 16:55 08/18/24 16:55 08/18/24 16:55
Last Documented Vital Signs
Temp Pulse Resp BP Pulse Ox
97.7 F 77 12 179/109 100
08/18/24 22:13 08/18/24 22:13 08/18/24 22:13 08/18/24 22:13 08/18/24 22:13
MDM/Problems Addressed
MDM/Problems Addressed:
Patient sent to the emergency room from his long-term house because they do not believe they can provide him with the necessary support he needs. Patient suffered a fall yesterday and in the process suffered a patellar fracture. Because of this he
has been in a knee immobilizer and requiring crutches. Patient has Warnicke's encephalopathy and is somewhat ataxic at baseline. He has been unstable and they feel he is at risk for falls in their facility. No new complaints today. Patient noted
to be hyperglycemic which was treated with subcutaneous insulin. Potassium is low at 3.3 so a dose of oral potassium ordered.
*Pulse Oximetry
Patient hypoxic: no
*Critical Care Note
Total Time (30-74mins, 75-104mins- exclusive of procedures): Not Applicable
Patient Management
Social determinants of health affecting care: Living situation and Substance abuse
ED Attending Note
-
Portions of this chart may have been created with voice recognition software.� Occasional wrong word or��sound alike� substitutions may have occurred due to the inherent limitations of voice recognition software.
Discharge Plan
Departure
Patient Disposition: Admit
Date of Disposition: 08/18/24
Time of Disposition: 20:08
Admit to: Med/Surg
Presentation/result/management discussed w/ accepting MD/DO: Hospitalist
Discharge Problem:
Patellar fracture, Wernicke encephalopathy
Interventions
Interventions:
*Risk Screen - Suicide Last Done: 08/18/24 16:55
*General Assessment Last Done: 08/18/24 16:55
*Neglect/Abuse Screening Last Done: 08/18/24 16:55
ED- Fall Risk Assessment Last Done: 08/18/24 16:55
*ED COVID-19 Vaccine History Last Done: 08/18/24 16:55
*Nursing Disposition Last Done: 08/18/24 21:49
Discharge Date and Time
Discharge Date/Time: 08/18/24 21:50
[2024-08-18 17:36] LABS: ALT (SGPT) 28 U/L (0-50); AST (SGOT) 42 U/L (17-59); Albumin 3.1 g/dl (3.5-5.0); Alkaline Phosphatase 123 U/L (38-126); Blood Urea Nitrogen 10 mg/dl (9-20); Calcium 8.8 mg/dl (8.4-10.2); Carbon Dioxide 22 mmol/L (22-30); Chloride 100 mmol/L (98-107); Estimated Creatinine Clearance 98 ml/min; Glucose 320 mg/dl (70-99); Potassium 3.3 mmol/L (3.5-5.1); Sodium 132 mmol/L (135-145); Total Bilirubin 2.3 mg/dl (0.2-1.3); eGFR > 60.00
[2024-08-18 17:44] LABS: % Eosinophils 2.9 % (0-6); % Immature Granulocytes 0.8 % (0-0.5); % Lymphocytes 9.9 % (20.5-51.1); % Monocytes 10.2 % (1.7-9.3); % Neutrophils 75.2 % (42.2-75.2); Absolute Basophils 0.1 10^3/uL (0-0.2); Absolute Eosinophils 0.2 10^3/uL (0-0.7); Absolute Immature Granulocytes 0.1 10^3/uL (0-0.05); Absolute Lymphocytes 0.8 10^3/uL (1.2-3.4); Absolute Monocytes 0.8 10^3/uL (0.1-0.6); Absolute Neutrophils 5.7 10^3/uL (1.4-6.5); Hematocrit 37.8 % (39.0-52.0); Hemoglobin 13.5 g/dL (13.0-18.0); Mean Corp Hgb Conc. 35.7 g/dL (33.0-37.0); Mean Corpuscular Hgb 31.5 pg (27.0-31.0); Mean Corpuscular Volume 88.3 fL (80.0-94.0); Mean Platelet Volume 10.9 fL (7.4-10.4); Nucleated Red Blood Cells % 0 % (-); Platelet Count 74 10^3/uL (130-400); Red Blood Cell Count 4.28 10^6/uL (4.70-6.10); Red Cell Dist. Width 13.9 % (11.5-14.5); White Blood Cell Count 7.6 10^3/uL (4.8-10.8)
[2024-08-18] MEDS: NOVOLOG vial 5 UNITS SC ×2 (17:56→20:02)
[2024-08-18] MEDS: KCL 40 MEQ PO (17:56)
[2024-08-18 19:36] LABS: Glucose - Point of Care 321 mg/dl (70-99)
--- NOTE | 2024-08-18 20:26 | PHANOTE ---
med Cal[place] tech(08/18/24)-Patient was unable to go over his medications with me, and has no one else that could provide the information. Patient repeats he needs oxycodone, but has not had that filled since 2020 per PDMP.
--- NOTE | 2024-08-18 20:40 | HPS.HSE ---
Family Physician
-
Family Physician: NO INTERVIEW UNKNOWN
Chief Complaint
-
inability to manage at [facility]
History of Present Illness
49-year-old male past medical history of Wernicke's encephalopathy, history of former cocaine/alcohol use disorder, diabetes, hypertension, presenting for placement.
Patient was recently admitted from 08/12 to 08/14 for altered mental status. Patient was treated with IV thiamine. He was also started on losartan and Norvasc while hospitalized. He left [facility] on August 14.
He came to the emergency room yesterday after a fall. He had facial lacerations which were repaired. Left knee x-ray showed nondisplaced fracture of the patella. He was placed in knee immobilizer and discharged with crutches.
He presents today from [facility] because he was evidently not able to get around the crutches and [facility] felt like they could not provide him with the assistance he needs so they sent him back to the emergency room.
He complains of left knee pain but denies any other complaints.
He smokes 10 cigarettes a day. He drinks alcohol sometimes. He has not smoked marijuana in 3 years.
Medical History
Past Medical History
Past Medical History: Reports Other (Wernicke's encephalopathy, history of former cocaine/alcohol use disorder, diabetes, hypertension)
Past Surgical History: Reports None
Social History
Tobacco: Non-smoker
Alcohol: None
Drug: None
Family History
Family History: Not pertinent
Allergies / Home Medications
Allergies reflects when Allergies were last updated in [facility].
Home Medications with original date entered in [facility]
Allergy/Medication List:
Allergies
Allergy/AdvReac Type Severity Reaction Status Date / Time
Corticosteroids Allergy Unknown Verified 08/17/24 08:25
(Glucocorticoids)
MRI contrast Allergy Unknown Uncoded 08/17/24 08:25
Home Medications
amlodipine 5 mg tablet (Norvasc) 5 mg PO DAILY Blood Pressure 08/12/24
carvedilol 6.25 mg tablet (Coreg) 6.25 mg PO BID Blood Pressure 08/12/24
hydroxyzine pamoate 25 mg capsule 50 mg PO DAILY Neurological Condition 08/12/24
insulin glargine 100 unit/mL (3 mL) subcutaneous pen (Basaglar KwikPen U-100 Insulin) 50 unit SC HS Diabetes 08/12/24
insulin lispro 100 unit/mL subcutaneous solution (Humalog U-100 Insulin) 26 sliding scale dose SC AC Diabetes 08/12/24
lactulose 10 gram/15 mL oral solution 20 g PO TID Gastrointestinal Issue 08/12/24
quetiapine 300 mg tablet (Seroquel) 300 mg PO HS Neurological Condition 08/12/24
spironolactone 100 mg tablet 100 mg PO DAILY Liver Issues 08/12/24
trazodone 100 mg tablet 100 mg PO HS Mental Health 08/12/24
lidocaine 5 % topical patch (Lidoderm) 1 patch topical DAILY #15 ea 08/17/24
Review of Systems
-
History Source: Patient
A 12 point ROS was completed and negative except as noted: Yes
Constitutional: Reports No Symptoms
EENT: Reports No Symptoms
Respiratory: Reports No Symptoms
Cardiac: Reports No Symptoms
Abdomen/GI: Reports No Symptoms
: Reports No Symptoms
Musculoskeletal: Reports See HPI
Skin: Reports No Symptoms
Neurological: Reports No Symptoms
Endocrine: Reports No Symptoms
Hematologic/Lymphatic: Reports No Symptoms
Psych: Reports No Symptoms
Physical Exam
Vital Signs
Vital Signs
Temp Pulse Resp BP Pulse Ox
97.4 F 77 16 170/96 100
08/18/24 16:55 08/18/24 20:30 08/18/24 20:30 08/18/24 16:55 08/18/24 20:30
Physical Exam
General: Well Developed, Well Nourished and No Apparent Distress
HEENT: NormoCephalic, Moist mucous membranes and Atraumatic
Respiratory: Clear
Cardiac: S1/S2 and Regular Rhythm; No Murmur or Rub
GI: Soft, Non Tender, Non Distended and Normal Bowel Sounds; No Organomegaly
Rectal: Deferred by Provider
Musculoskeletal: No Clubbing, No Cyanosis and No Edema
Skin: No Rash
Neuro: Nonfocal/grossly intact
Laboratory Results
-
08/18/24 17:07
08/18/24 17:07
Laboratory Results
Total Bilirubin 2.3 mg/dl (0.2-1.3) H 08/18/24 17:07
AST 42 U/L (17-59) 08/18/24 17:07
ALT 28 U/L (0-50) 08/18/24 17:07
Alkaline Phosphatase 123 U/L (38-126) 08/18/24 17:07
Data Reviewed
-
Lab Data: Labs Reviewed by me
Old Records: Reviewed
Impression/Plan
-
IMPRESSION:
PLAN:
# Patellar fracture
-X-ray yesterday shows nondisplaced vertical fracture along the medial patella with associated moderate joint effusion/prepatellar soft tissue swelling
-PT/OT/case management for placement
# Hypokalemia likely secondary to GI loss from lactulose
-Replete potassium
Warnicke's encephalopathy
-Continue lactulose
-Continue Seroquel
-Continue trazodone
Chronic thrombocytopenia
History of former cocaine/alcohol use disorder
Type 2 diabetes
-Continue 50 units Lantus
-Continue 26 units before meals
Hypertension
-Continue amlodipine, Coreg
-Continue spironolactone
Smoker
Full code
DVT prophylaxis�heparin
Regular diet
[2024-08-18 22:13] VITALS: BP 179/109
[2024-08-18 22:14] VITALS: BMI 25.6
[2024-08-18 22:25] LABS: Alcohol None Detected
[2024-08-18 22:45] LABS: Glucose - Point of Care 174 mg/dl (70-99)
[2024-08-18 23:00] VITALS: BP 176/99
[2024-08-19] MEDS: COREG 6.25 MG PO ×3 (00:43→21:20)
[2024-08-19] MEDS: NORVASC 5 MG PO ×2 (00:43→08:22)
[2024-08-19 02:02] VITALS: BP 145/90
[2024-08-19 06:46] LABS: Amphetamines Negative (Negative); Barbiturates Negative (Negative); Benzodiazepines Negative (Negative); Buprenorphine Negative (Negative); Cocaine Negative (Negative); Methadone Negative (Negative); Methamphetamines Negative (Negative); Opiates Negative (Negative); Phencyclidine Negative (Negative); Tricyclic Antidepressants Positive (Negative)
[2024-08-19 06:47] LABS: Marijuana Negative (Negative)
[2024-08-19 07:39] VITALS: BP 163/94
[2024-08-19 07:40] LABS: Glucose - Point of Care 175 mg/dl (70-99)
[2024-08-19] MEDS: DUPHALAC/CHRONULAC 20 GRAMS PO ×3 (08:20→21:20)
[2024-08-19] MEDS: ALDACTONE 100 MG PO (08:20)
[2024-08-19] MEDS: NICODERM TRANSDERMAL 14 MG TRANSDERM (08:20)
[2024-08-19] MEDS: VITAMIN B1 100 MG PO (08:20)
[2024-08-19] MEDS: LIDOCAINE 4% PATCH 1 PATCH TOPICAL (08:21)
[2024-08-19] MEDS: FOLVITE 1 MG PO (08:21)
[2024-08-19] MEDS: HEPARIN 5000 UNITS SC ×2 (08:22→21:21)
[2024-08-19] MEDS: NOVOLOG FLEXPEN-LOW RESISTANCE 1 UNITS SC (09:16)
[2024-08-19] MEDS: NOVOLOG FLEXPEN 26 UNITS SC ×2 (09:17→13:58)
[2024-08-19 09:53] LABS: % Basophils 1.2 % (0-2); % Eosinophils 4.5 % (0-6); % Immature Granulocytes 0.7 % (0-0.5); % Lymphocytes 9.7 % (20.5-51.1); % Monocytes 9.7 % (1.7-9.3); % Neutrophils 74.2 % (42.2-75.2); Absolute Basophils 0.1 10^3/uL (0-0.2); Absolute Eosinophils 0.4 10^3/uL (0-0.7); Absolute Immature Granulocytes 0.1 10^3/uL (0-0.05); Absolute Lymphocytes 0.9 10^3/uL (1.2-3.4); Absolute Monocytes 0.9 10^3/uL (0.1-0.6); Absolute Neutrophils 6.8 10^3/uL (1.4-6.5); Hematocrit 36.1 % (39.0-52.0); Mean Corpuscular Hgb 31.6 pg (27.0-31.0); Mean Corpuscular Volume 87.8 fL (80.0-94.0); Mean Platelet Volume 10.7 fL (7.4-10.4); Nucleated Red Blood Cells % 0 % (-); Platelet Count 79 10^3/uL (130-400); Red Blood Cell Count 4.11 10^6/uL (4.70-6.10); White Blood Cell Count 9.1 10^3/uL (4.8-10.8)
[2024-08-19 10:33] LABS: ALT (SGPT) 26 U/L (0-50); AST (SGOT) 37 U/L (17-59); Albumin 2.7 g/dl (3.5-5.0); Alkaline Phosphatase 115 U/L (38-126); Blood Urea Nitrogen 9 mg/dl (9-20); Calcium 8.7 mg/dl (8.4-10.2); Carbon Dioxide 20 mmol/L (22-30); Chloride 105 mmol/L (98-107); Estimated Creatinine Clearance 98 ml/min; Glucose 164 mg/dl (70-99); Potassium 3.2 mmol/L (3.5-5.1); Sodium 134 mmol/L (135-145); Total Protein 5.5 g/dl (6.3-8.2); eGFR > 60.00
[2024-08-19 11:50] LABS: Glucose - Point of Care 134 mg/dl (70-99)
[2024-08-19] MEDS: NOVOLOG FLEXPEN-LOW RESISTANCE SC ×2 (11:55→16:47)
--- NOTE | 2024-08-19 12:17 | W.PN.HOSP.TC ---
Today's Communication/Plan
-
Monitor vital signs see plan
PT/OT, case management
Pain control
cw home meds
Assessment / Plan
Assessment / Plan
General: Well Developed, Well Nourished and No Apparent Distress
HEENT: NormoCephalic, Moist mucous membranes and Atraumatic
Respiratory: Clear
Cardiac: S1/S2 and Regular Rhythm; No Murmur or Rub
GI: Soft, Non Tender, Non Distended and Normal Bowel Sounds
Musculoskeletal: Left knee immobilizer
Neuro: Nonfocal/grossly intact
Acute traumatic Patellar fracture
-X-ray yesterday shows nondisplaced vertical fracture along the medial patella with associated moderate joint effusion/prepatellar soft tissue swelling
has left knee immobilizer; he is to follow-up with orthopedics outpatient. Could not manage at home with crutches. PT/OT. Case management
Pain control
# Hypokalemia likely secondary to GI loss from lactulose
-Replete potassium
Warnicke's encephalopathy
-Continue lactulose
-Continue Seroquel
-Continue trazodone
Hyponatremia
Monitor
Chronic thrombocytopenia likely secondary to cirrhosis
History of former cocaine/alcohol use disorder
Type 2 diabetes
-Continue 50 units Lantus
-Continue 26 units before meals
sliding scale
Hypertension
-Continue amlodipine, Coreg
-Continue spironolactone
Smoker
Full code
DVT prophylaxis�heparin
Anticipated Discharge: Within 24 hours
Subjective/Interval History
-
Date of Service: August 19, 2024
has some pain
Objective Data
-
Labs:
Laboratory Results
08/19/24 08/19/24
08:37 08:38
WBC 9.1
Hgb 13.0
Hct 36.1 L
Plt Count 79 L
Sodium 134 L
Potassium 3.2 L
Chloride 105
Carbon Dioxide 20 L
BUN 9
Creatinine 1.0
Glucose 164 H
Calcium 8.7
Total Bilirubin 2.0 H
AST 37
ALT 26
Alkaline Phosphatase 115
Vital Signs:
Vital Signs
Temp Pulse Resp BP Pulse Ox
98.0 F 88 17 163/94 99
08/19/24 07:39 08/19/24 07:39 08/19/24 07:39 08/19/24 07:39 08/19/24 07:39
I&O
08/18/24 08/19/24 08/20/24
06:59 06:59 06:59
Intake Total 240 / 240
Output Total 525 / 525
Balance -285 / -285
[2024-08-19] MEDS: KCL 40 MEQ PO (13:07)
[2024-08-19] MEDS: DILAUDID 0.25 MG IV (13:09)
[2024-08-19 15:27] VITALS: BP 142/88
--- NOTE | 2024-08-19 16:09 | CM ---
Pt was given pain meds. Pt feel asleep before answering questions. IA needs to be done .
[2024-08-19 16:40] LABS: Glucose - Point of Care 38 mg/dl (70-99)
[2024-08-19 16:54] LABS: Glucose - Point of Care 48 mg/dl (70-99)
[2024-08-19 17:13] LABS: Glucose - Point of Care 72 mg/dl (70-99)
[2024-08-19] MEDS: NOVOLOG FLEXPEN SC (17:39)
[2024-08-19] MEDS: NOVOLOG FLEXPEN 10 UNITS SC (17:55)
[2024-08-19 20:19] LABS: Glucose - Point of Care 73 mg/dl (70-99)
[2024-08-19 21:12] LABS: Glucose - Point of Care 112 mg/dl (70-99)
[2024-08-19] MEDS: DESYREL 100 MG PO (21:20)
[2024-08-19] MEDS: SEROQUEL 300 MG PO (21:20)
[2024-08-19] MEDS: LANTUS SC (21:20)
[2024-08-19 23:30] VITALS: BP 118/71
[2024-08-20] VITALS (8 sets, daily range): BP systolic 136–172; BP diastolic 78–105; PULSE 74; O2SAT 98
[2024-08-20 03:48] LABS: Glucose - Point of Care 177 mg/dl (70-99)
[2024-08-20 07:43] LABS: Glucose - Point of Care 130 mg/dl (70-99)
[2024-08-20 09:31] LABS: % Basophils 0.9 % (0-2); % Eosinophils 3.4 % (0-6); % Lymphocytes 14.3 % (20.5-51.1); % Monocytes 10.2 % (1.7-9.3); % Neutrophils 70.2 % (42.2-75.2); Absolute Basophils 0.1 10^3/uL (0-0.2); Absolute Eosinophils 0.4 10^3/uL (0-0.7); Absolute Immature Granulocytes 0.1 10^3/uL (0-0.05); Absolute Lymphocytes 1.5 10^3/uL (1.2-3.4); Absolute Monocytes 1.1 10^3/uL (0.1-0.6); Absolute Neutrophils 7.3 10^3/uL (1.4-6.5); Hematocrit 36.6 % (39.0-52.0); Hemoglobin 13.2 g/dL (13.0-18.0); Mean Corp Hgb Conc. 36.1 g/dL (33.0-37.0); Mean Corpuscular Hgb 31.7 pg (27.0-31.0); Mean Platelet Volume 10.6 fL (7.4-10.4); Nucleated Red Blood Cells % 0 % (-); Platelet Count 81 10^3/uL (130-400); Red Blood Cell Count 4.16 10^6/uL (4.70-6.10); Red Cell Dist. Width 14.3 % (11.5-14.5); White Blood Cell Count 10.5 10^3/uL (4.8-10.8)
[2024-08-20 09:44] LABS: Blood Urea Nitrogen 15 mg/dl (9-20); Calcium 8.6 mg/dl (8.4-10.2); Carbon Dioxide 24 mmol/L (22-30); Chloride 106 mmol/L (98-107); Estimated Creatinine Clearance 82 ml/min; Glucose 116 mg/dl (70-99); Sodium 134 mmol/L (135-145); eGFR > 60.00
[2024-08-20] MEDS: NORVASC 5 MG PO (10:05)
[2024-08-20] MEDS: FOLVITE 1 MG PO (10:05)
[2024-08-20] MEDS: DUPHALAC/CHRONULAC 20 GRAMS PO ×3 (10:06→21:41)
[2024-08-20] MEDS: ALDACTONE 100 MG PO (10:06)
[2024-08-20] MEDS: COREG 6.25 MG PO ×2 (10:06→19:26)
[2024-08-20] MEDS: NICODERM TRANSDERMAL 14 MG TRANSDERM (10:07)
[2024-08-20] MEDS: VITAMIN B1 100 MG PO (10:07)
[2024-08-20] MEDS: HEPARIN 5000 UNITS SC ×2 (10:09→19:25)
[2024-08-20] MEDS: NOVOLOG FLEXPEN-LOW RESISTANCE SC ×2 (10:10→13:15)
[2024-08-20] MEDS: LIDOCAINE 4% PATCH TOPICAL ×2 (10:11→19:49)
[2024-08-20] MEDS: NOVOLOG FLEXPEN SC (11:33)
[2024-08-20] MEDS: NOVOLOG FLEXPEN 10 UNITS SC ×2 (11:35→17:26)
--- NOTE | 2024-08-20 11:44 | W.PN.HOSP.TC ---
Today's Communication/Plan
-
Monitor vital signs see plan
PT/OT
Continue with insulin
Assessment / Plan
Assessment / Plan
General: Well Developed, Well Nourished and No Apparent Distress
HEENT: NormoCephalic, Moist mucous membranes and Atraumatic
Respiratory: Clear
Cardiac: S1/S2 and Regular Rhythm; No Murmur or Rub
GI: Soft, Non Tender, Non Distended and Normal Bowel Sounds
Musculoskeletal: Left knee immobilizer
Neuro: Nonfocal/grossly intact
Acute traumatic Patellar fracture
-X-ray yesterday shows nondisplaced vertical fracture along the medial patella with associated moderate joint effusion/prepatellar soft tissue swelling
has left knee immobilizer; he is to follow-up with orthopedics outpatient. Could not manage at home with crutches. PT/OT. Case management
Pain control
Discussed with Dr. Khalil from orthopedics, fracture is very nonoperative. Patient is allowed weightbearing as tolerated
# Hypokalemia likely secondary to GI loss from lactulose
-Replete potassium
Warnicke's encephalopathy
-Continue lactulose
-Continue Seroquel
-Continue trazodone
Hyponatremia
Monitor
Chronic thrombocytopenia likely secondary to cirrhosis
History of former cocaine/alcohol use disorder
Type 2 diabetes
hypoglycemia 08/19
insulin lowered; monitor
sliding scale
Hypertension
-Continue amlodipine, Coreg
-Continue spironolactone
Smoker
Full code
DVT prophylaxis�heparin
Anticipated Discharge: Within 24 hours
Subjective/Interval History
-
Date of Service: August 20, 2024
Denies nausea
Objective Data
-
Labs:
Laboratory Results
08/20/24
09:13
WBC 10.5
Hgb 13.2
Hct 36.6 L
Plt Count 81 L
Sodium 134 L
Potassium 4.0
Chloride 106
Carbon Dioxide 24
BUN 15
Creatinine 1.2
Glucose 116 H
Calcium 8.6
Vital Signs:
Vital Signs
Temp Pulse Resp BP Pulse Ox
97.7 F 76 19 151/88 100
08/20/24 07:56 08/20/24 07:56 08/20/24 07:56 08/20/24 07:56 08/20/24 07:56
I&O
08/19/24 08/20/24 08/21/24
06:59 06:59 06:59
Intake Total 240 / 240 1200 / 1200 480 / 480
Output Total 525 / 525 1400 / 1400 725 / 725
Balance -285 / -285 -200 / -200 -245 / -245
--- NOTE | 2024-08-20 12:23 | CM ---
BCARES saw patient and patient declined VN services. CM will try to assess patient.
--- NOTE | 2024-08-20 13:05 | CM ---
Patient seen at bedside with PT. Patient states he lives in a half way home in [place] but then was talking about his home on [address] and was talking about an elevator vs walking down stairs. Patient also seen by [facility] but patient told them
he did not want any assistance and that he had not been drinking for 9 months. CM will continue to try to get an assessment of discharge needs.
Plan; continue to discuss options for discharge; pending PT/OT assessment
[2024-08-20 13:14] LABS: Glucose - Point of Care 125 mg/dl (70-99)
[2024-08-20 13:38] LABS: Ammonia 30 umol/L (9-30)
--- NOTE | 2024-08-20 14:00 | PTCARENOTE ---
patient denies pain, tolerating diet, turns with assist x1, LLE knee in immobilizer, vss, will continue to monitor.
[2024-08-20 17:09] LABS: Glucose - Point of Care 182 mg/dl (70-99)
[2024-08-20] MEDS: ULTRAM PO (17:24)
[2024-08-20] MEDS: NOVOLOG FLEXPEN-LOW RESISTANCE 1 UNITS SC (17:26)
--- NOTE | 2024-08-20 17:30 | RR ---
at 1729, attempted to give patient his medications in recliner and he turned head to left side and began having tremors. staring. not responding to verbal stimuli and then proceeded to progress into full body shaking/tremors/grand mal seizure. last
MSAS score at 1600 was 0. at 1730. A Rapid Response was called on this patient, please see Rapid Response form.
[2024-08-20] MEDS: NSS (PRESERVATIVE FREE) 1 ML IV (17:35)
[2024-08-20] MEDS: ATIVAN 2 MG IV (17:36)
[2024-08-20 17:41] LABS: Glucose - Point of Care 260 mg/dl (70-99)
--- NOTE | 2024-08-20 17:52 | W.PN.UPDATE ---
Addendum entered and electronically signed by Claudette Jacobson MD 08/20/24 18:54:
CT head no acute abnormalities
Labs unremarkable, except mild leukocytosis. Will monitor for fevers.
continue care as otherwise outlined
Original Note:
Update Note
Progress Note Update
LEAD INSTALLER called for grand mal seizure witnessed by RN at 5:29 pm. 2mg IV Ativan urgently ordered, administered. protecting airway. VSS. BS 180s.
Seizure has clinically abated at this time, back to baseline per nursing.
CT head ordered urgently; labs urgently ordered.
Keppra loaded 1g now. case discussed with Neurology Dr. Das. who recommends no further Keppra until AM evaluation. Recommends MRI brain w/wo contrast and routine EEG which are ordered.
transfer to IMU after CT.
[2024-08-20 18:11] LABS: Hematocrit 39.1 % (39.0-52.0); Hemoglobin 13.8 g/dL (13.0-18.0); Mean Corp Hgb Conc. 35.3 g/dL (33.0-37.0); Mean Corpuscular Hgb 31.7 pg (27.0-31.0); Mean Corpuscular Volume 89.7 fL (80.0-94.0); Mean Platelet Volume 10.1 fL (7.4-10.4); Platelet Count 105 10^3/uL (130-400); Red Blood Cell Count 4.36 10^6/uL (4.70-6.10); Red Cell Dist. Width 14.5 % (11.5-14.5); White Blood Cell Count 13.1 10^3/uL (4.8-10.8)
[2024-08-20 18:15] LABS: INR 1.12; PT 14.9 Sec (11.4-14.6)
[2024-08-20 18:16] LABS: APTT 29.4 Sec (23.4-35.0)
[2024-08-20 18:27] LABS: ALT (SGPT) 27 U/L (0-50); AST (SGOT) 46 U/L (17-59); Albumin 2.9 g/dl (3.5-5.0); Alkaline Phosphatase 117 U/L (38-126); Blood Urea Nitrogen 16 mg/dl (9-20); Calcium 8.7 mg/dl (8.4-10.2); Carbon Dioxide 16 mmol/L (22-30); Chloride 103 mmol/L (98-107); Estimated Creatinine Clearance 89 ml/min; Glucose 213 mg/dl (70-99); Magnesium 1.9 mg/dl (1.6-2.3); Phosphorus 3.8 mg/dl (2.5-4.5); Potassium 4.6 mmol/L (3.5-5.1); Sodium 133 mmol/L (135-145); Total Protein 5.8 g/dl (6.3-8.2); eGFR > 60.00
[2024-08-20 18:29] LABS: Troponin I < 0.012 ng/ml
[2024-08-20 18:56] LABS: TSH Reflex To Free T4 4.25 uIU/ml (0.47-4.68)
[2024-08-20 19:22] LABS: Prolactin 22.5 ng/ml (3.7-17.9)
[2024-08-20] MEDS: KEPPRA 1000 MG IV (19:24)
--- NOTE | 2024-08-20 19:30 | PTCARENOTE ---
telephone report given to Carmen Doe RN in IMU. patient was transferred from CT scan to IMU after Rapid Response. Belongings sent to new room.
[2024-08-20 19:47] LABS: Glucose - Point of Care 160 mg/dl (70-99)
[2024-08-20] MEDS: LANTUS 0.3 UNITS SC (21:41)
[2024-08-20] MEDS: SEROQUEL 300 MG PO (21:41)
[2024-08-20] MEDS: DESYREL 100 MG PO (21:41)
[2024-08-20] MEDS: TYLENOL 650 MG PO (21:43)
[2024-08-20 21:51] LABS: Glucose - Point of Care 118 mg/dl (70-99)
[2024-08-21] VITALS (12 sets, daily range): BP systolic 118–146; BP diastolic 74–91
--- NOTE | 2024-08-21 01:13 | PTCARENOTE ---
Caring for pt overnight. aaox3, but forgetful at times. Appropriate conversation. C/o 02/26 HERNANDEZ pain, tylenol given. VSS. , bp ran high in beginning of shift but now normal. LLE immobilizer in place. Tooks meds with water, no issues. CC on. Bed alarm
on. Will monitor.
[2024-08-21 06:33] LABS: % Basophils 1.5 % (0-2); % Eosinophils 4.5 % (0-6); % Immature Granulocytes 0.8 % (0-0.5); % Lymphocytes 20.7 % (20.5-51.1); % Neutrophils 61.5 % (42.2-75.2); Absolute Basophils 0.1 10^3/uL (0-0.2); Absolute Eosinophils 0.4 10^3/uL (0-0.7); Absolute Immature Granulocytes 0.1 10^3/uL (0-0.05); Absolute Lymphocytes 1.9 10^3/uL (1.2-3.4); Absolute Neutrophils 5.6 10^3/uL (1.4-6.5); Hematocrit 34.6 % (39.0-52.0); Hemoglobin 12.3 g/dL (13.0-18.0); Mean Corp Hgb Conc. 35.5 g/dL (33.0-37.0); Mean Corpuscular Hgb 31.9 pg (27.0-31.0); Mean Corpuscular Volume 89.9 fL (80.0-94.0); Mean Platelet Volume 9.8 fL (7.4-10.4); Nucleated Red Blood Cells % 0 % (-); Platelet Count 88 10^3/uL (130-400); Red Blood Cell Count 3.85 10^6/uL (4.70-6.10); Red Cell Dist. Width 14.4 % (11.5-14.5); White Blood Cell Count 9.1 10^3/uL (4.8-10.8)
[2024-08-21 06:46] LABS: Blood Urea Nitrogen 16 mg/dl (9-20); Calcium 8.5 mg/dl (8.4-10.2); Carbon Dioxide 23 mmol/L (22-30); Chloride 109 mmol/L (98-107); Estimated Creatinine Clearance 98 ml/min; Glucose 113 mg/dl (70-99); Potassium 3.9 mmol/L (3.5-5.1); Sodium 135 mmol/L (135-145); eGFR > 60.00
--- NOTE | 2024-08-21 08:43 | EEG.RPT ---
Electroencephalogram Report
Recording
Date of EE08/21/24
Type of EEG: Routine
Length of EEG recordin mins
Done with Video Recording: Yes
Patient Status: Inpatient
Recording Conditions: Awake and Confused
Hyperventilation Performed: No
Photic Stimulation Performed: Yes
Report
History: 49 year old man with first time seizure, status epilepticus, broke after Ativan 2 mg yesterday evening
Background: continuous generalized slowing, low amplitude polymorphic delta activity. there is some admixed theta activity. It is symmetric and reactive.
Sleep: none
Focal/rhythmic/epileptiform: none
seizures: none
Photic stim: no background change
Impression: continuous generalized slowing
Clinical correlation: moderate generalized cererbal dysfunction.
[2024-08-21] MEDS: VITAMIN B1 100 MG PO (09:03)
[2024-08-21] MEDS: ALDACTONE 100 MG PO (09:03)
[2024-08-21] MEDS: FOLVITE 1 MG PO (09:03)
[2024-08-21 09:04] LABS: Glucose - Point of Care 104 mg/dl (70-99)
[2024-08-21] MEDS: NICODERM TRANSDERMAL 14 MG TRANSDERM (09:04)
[2024-08-21] MEDS: NORVASC 5 MG PO (09:04)
[2024-08-21] MEDS: COREG 6.25 MG PO ×2 (09:04→20:09)
[2024-08-21] MEDS: LIDOCAINE 4% PATCH 1 PATCH TOPICAL (09:05)
[2024-08-21] MEDS: HEPARIN 5000 UNITS SC ×2 (09:05→20:09)
[2024-08-21] MEDS: DUPHALAC/CHRONULAC 20 GRAMS PO ×3 (09:05→22:24)
[2024-08-21] MEDS: NOVOLOG FLEXPEN-LOW RESISTANCE SC (09:13)
[2024-08-21] MEDS: NOVOLOG FLEXPEN 10 UNITS SC ×3 (10:09→18:39)
[2024-08-21 11:56] LABS: Glucose - Point of Care 153 mg/dl (70-99)
--- NOTE | 2024-08-21 12:37 | CON.NEURO ---
Neuro Assessment/Plan
Assessment
reported first time seizure, longer than 5 mins, broke immediately with ativan 2 mg. The duration and lack of post-ictal raises some suspicion for PNEA but I would treat as first time seizure
EEG shows generalized slowing consistent with generalized cerebral dysfunction.
Plan
obtain brain MRI w/ and w/o contrast
no rx for now
Consultation
Order
Date of Consultation: 08/21/24
Requesting Provider: Claudette Jacobson
Reason for Consult: seizure
Subjective/Objective
Subjective Data
Date of Service: August 21, 2024
49-year-old male past medical history of Wernicke's encephalopathy, history of former cocaine/alcohol use disorder, diabetes, hypertension, [facility]. recent left patellar fracture, treated with knee immobilizer,
unable to get around [facility] with crutches
Last night 5:29 pm was witnessed by nurse to have seizure, I spoke with electronics specialist hospitalist Dr Jacobson at 5:40 pm, patient appeared to be still seizing, agreed with giving Ativan. Patient given ativan 2 mg, seizure abated, he was alert, talking as per
his baseline.
Patient reports last drinking alcohol 9 months ago, and no prior seizures. He does not drive, lost his license after DUI
Objective Data
Vital Signs
Temp Pulse Resp BP Pulse Ox
36.5 C 68 13 134/87 97
08/21/24 07:05 08/21/24 10:01 08/21/24 10:01 08/21/24 10:01 08/21/24 10:01
Lab Results
08/21/24 06:14
08/21/24 06:14
PT 14.9 Sec (11.4-14.6) H 08/20/24 18:08
INR 1.12 08/20/24 18:08
APTT 29.4 Sec (23.4-35.0) 08/20/24 18:08
Sodium 135 mmol/L (135-145) 08/21/24 06:14
Potassium 3.9 mmol/L (3.5-5.1) 08/21/24 06:14
BUN 16 mg/dl (9-20) 08/21/24 06:14
Glucose 113 mg/dl (70-99) H 08/21/24 06:14
Calcium 8.5 mg/dl (8.4-10.2) 08/21/24 06:14
Phosphorus 3.8 mg/dl (2.5-4.5) 08/20/24 17:37
Ur Buprenorphine Negative (Negative) 08/19/24 06:04
Patient Allergies
Corticosteroids (Glucocorticoids) Allergy (Verified 08/17/24 08:25)
Unknown
Iodinated Contrast Media Allergy (Verified 08/18/24 22:29)
MRI CONTRAST
Physical Exam
-
AAOx3, speech clear, language intact
VFF, EOMI, face symmetric
full strength b/l UE and RLE
unwilling to lift LLE, in knee immobilizer
Medications
-
Active Medications
Generic Name Dose Route Start Last Admin
Trade Name Freq PRN Reason Stop Dose Admin
Acetaminophen 650 mg 08/18/24 21:51 08/20/24 21:43
Acetaminophen 325 Mg Tablet PO 09/15/24 21:50 650 mg
Q4HPRN PRN Administration
mild pain/HERNANDEZ/temp> 100.4F
Amlodipine Besylate 5 mg 08/18/24 22:35 08/21/24 09:04
Amlodipine 5 Mg Tablet PO 09/15/24 22:32 5 mg
DAILY RAI Administration
Carvedilol 6.25 mg 08/18/24 22:35 08/21/24 09:04
Carvedilol 6.25 Mg Tablet PO 09/15/24 22:32 6.25 mg
BID RAI Administration
Dextrose 12.5 grams 08/18/24 23:00
Dextrose 50% (0.5 Grams/Ml) 50 Ml Syringe IV 09/15/24 22:59
[id number] PRN
hypoglycemia
Protocol
Folic Acid 1 mg 08/19/24 08:00 08/21/24 09:03
Folic Acid 1 Mg Tablet PO 09/16/24 07:59 1 mg
DAILY RAI Administration
Glucagon 1 mg 08/18/24 23:00
Glucagon 1 Mg Vial IM 09/15/24 22:59
PRN PRN
hypoglycemia - no IV access
Protocol
Heparin Sodium 5,000 units 08/19/24 08:00 08/21/24 09:05
Heparin 5,000 Units/Ml 1 Ml Vial SC 09/16/24 07:59 5,000 units
Q12 RAI Administration
Insulin Glargine 30 units/ 0.3 mls @ 0 mls/hr 08/19/24 22:00 08/20/24 21:41
Device SC 09/16/24 21:59 0.3 mls
HS RAI Administration
As Directed
Insulin Aspart 0 units 08/19/24 07:30 08/21/24 09:13
Insulin Aspart Low Resistance 300 Units/3 Ml Pen.Injctr SC 09/16/24 07:29 Not Given
AC RAI
Protocol
Insulin Aspart 10 units 08/19/24 18:00 08/21/24 10:09
Insulin Aspart (100 Units/Ml) 3 Ml Flexpen SC 09/16/24 17:59 10 units
AC RAI Administration
Lactulose 20 grams 08/19/24 08:00 08/21/24 09:05
Lactulose Solution (20 Grams/30 Ml) 30 Ml Cup PO 09/16/24 07:59 20 grams
TID RAI Administration
Lidocaine 1 patch 08/19/24 08:00 08/21/24 09:05
Lidocaine 4% Topical Patch TOPICAL 09/16/24 07:59 1 patch
DAILY RAI Administration
Protocol
Lorazepam 1 mg 08/18/24 22:36
Lorazepam 1 Mg Tablet PO 09/15/24 22:35
Q2HPRN PRN
MSAS 5-7
Lorazepam 1 mg 08/18/24 22:36
Lorazepam 2 Mg/Ml Vial IV 09/15/24 22:35
Q1HPRN PRN
MSAS 8-11
Lorazepam 2 mg 08/18/24 22:36 08/20/24 17:36
Lorazepam 2 Mg/Ml Vial IV 09/15/24 22:35 2 mg
Q1HPRN PRN Administration
MSAS > 11
Nicotine 14 mg 08/19/24 08:00 08/21/24 09:04
Nicotine 14 Mg Patch TRANSDERM 09/16/24 07:59 14 mg
DAILY RAI Administration
Patch Removal 0 patch 08/19/24 20:00 08/20/24 21:29
Remove Lidocaine Patch REMOVE 09/16/24 19:59 Not Given
DAILY@2000 RAI
Quetiapine Fumarate 300 mg 08/19/24 22:00 08/20/24 21:41
Quetiapine 100 Mg Tablet PO 09/16/24 21:59 300 mg
HS RAI Administration
Sodium Chloride 0 flush 08/18/24 23:00
Sodium Chloride 0.9% (Flush) Syringe IV 09/15/24 22:59
PER PROTOCOL RAI
Sodium Chloride 0 ml 08/18/24 22:36 08/20/24 17:35
Sodium Chloride 0.9% (Preservative Free) 10 Ml Vial IV 09/15/24 22:35 1 ml
PRN PRN Administration
To dilute IV Ativan
Protocol
Spironolactone 100 mg 08/19/24 08:00 08/21/24 09:03
Spironolactone 50 Mg Tablet PO 09/16/24 07:59 100 mg
DAILY RAI Administration
Thiamine HCl 100 mg 08/19/24 08:00 08/21/24 09:03
Thiamine 100 Mg Tablet PO 09/16/24 07:59 100 mg
DAILY RAI Administration
Tramadol HCl 25 mg 08/20/24 08:45
Tramadol Hcl 50 Mg Tablet PO 09/17/24 08:44
Q6HPRN PRN
moderate to severe pain
Trazodone HCl 100 mg 08/19/24 22:00 08/20/24 21:41
Trazodone 100 Mg Tablet PO 09/16/24 21:59 100 mg
HS RAI Administration
Home Medications
�Medication �Instructions �Recorded
amlodipine 5 mg tablet (Norvasc) 5 mg PO DAILY Blood Pressure 08/12/24
carvedilol 6.25 mg tablet (Coreg) 6.25 mg PO BID Blood Pressure 08/12/24
hydroxyzine pamoate 25 mg capsule 50 mg PO DAILY anxiety 08/12/24
insulin glargine 100 unit/mL (3 50 unit SC HS Diabetes 08/12/24
mL) subcutaneous pen (Basaglar
KwikPen U-100 Insulin)
insulin lispro 100 unit/mL 26 sliding scale dose SC AC 08/12/24
subcutaneous solution (Humalog Diabetes
U-100 Insulin)
lactulose 10 gram/15 mL oral 20 g PO TID Gastrointestinal Issue 08/12/24
solution
quetiapine 300 mg tablet (Seroquel) 300 mg PO HS depression/anxiety 08/12/24
spironolactone 100 mg tablet 100 mg PO DAILY Liver Issues 08/12/24
trazodone 100 mg tablet 200 mg PO HS depression/sleep 08/12/24
folic acid 1 mg tablet 1 mg PO DAILY Supplement 08/19/24
lidocaine 5 % topical patch 1 patch topical DAILY apply to 08/19/24
(Lidoderm) lower back
thiamine HCl (vitamin B1) 100 mg 100 mg PO DAILY Supplement 08/19/24
tablet
--- NOTE | 2024-08-21 12:44 | PTCARENOTE ---
Rec'd pt this AM. he is AAO x3. voids in urinal. good appetite. cooperative.
[2024-08-21] MEDS: NOVOLOG FLEXPEN-LOW RESISTANCE 1 UNITS SC (13:37)
--- NOTE | 2024-08-21 14:10 | W.PN.HOSP.TC ---
Today's Communication/Plan
-
Monitor vital signs and see plan
Continue monitor mental status, MRI pending
Transfer out of IMU
PT/OT
Assessment / Plan
Assessment / Plan
General: Well Developed, Well Nourished and No Apparent Distress
HEENT: NormoCephalic, Moist mucous membranes and Atraumatic
Respiratory: Clear
Cardiac: S1/S2 and Regular Rhythm; No Murmur or Rub
GI: Soft, Non Tender, Non Distended and Normal Bowel Sounds
Musculoskeletal: Left knee immobilizer
Neuro: Nonfocal/grossly intact
Acute traumatic Patellar fracture
-X-ray yesterday shows nondisplaced vertical fracture along the medial patella with associated moderate joint effusion/prepatellar soft tissue swelling
has left knee immobilizer; he is to follow-up with orthopedics outpatient. Could not manage at home with crutches. PT/OT. Case management
Pain control
Discussed with Dr. Khalil from orthopedics, fracture is very nonoperative. Patient is allowed weightbearing as tolerated
Reported seizure 08/20 while in the hospital
Broke with Ativan
Neurology following, CT negative for acute CVA. MRI pending
EEG noted
Was Keppra loaded, now stopped
# Hypokalemia
Monitor
Warnicke's encephalopathy
-Continue lactulose
-Continue Seroquel
-Continue trazodone
Hyponatremia
Monitor
Chronic thrombocytopenia likely secondary to cirrhosis
History of former cocaine/alcohol use disorder
Type 2 diabetes
hypoglycemia 08/19
insulin lowered; monitor
sliding scale
Hypertension
-Continue amlodipine, Coreg
-Continue spironolactone
Smoker
Full code
DVT prophylaxis�heparin
Anticipated Discharge: Within 24 hours
Subjective/Interval History
-
Date of Service: August 21, 2024
denies pain
Objective Data
-
Labs:
Laboratory Results
08/21/24
06:14
WBC 9.1
Hgb 12.3 L
Hct 34.6 L
Plt Count 88 L
Sodium 135
Potassium 3.9
Chloride 109 H
Carbon Dioxide 23
BUN 16
Creatinine 1.0
Glucose 113 H
Calcium 8.5
Vital Signs:
Vital Signs
Temp Pulse Resp BP Pulse Ox
97.7 F 65 17 128/88 96
08/21/24 07:05 08/21/24 12:22 08/21/24 12:22 08/21/24 12:22 08/21/24 12:00
I&O
08/20/24 08/21/24 08/22/24
06:59 06:59 06:59
Intake Total 1200 / 1200 480 / 480
Output Total 1400 / 1400 3175 / 3175
Balance -200 / -200 -2695 / -2695
[2024-08-21] MEDS: ULTRAM 25 MG PO ×2 (15:57→22:33)
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
[2024-08-21 17:41] LABS: Glucose - Point of Care 383 mg/dl (70-99)
--- NOTE | 2024-08-21 17:43 | PTCARENOTE ---
Patient admitted in to room 420. AAOx3, able to make needs known. Oriented to unit and call alves, instructed to ring for assistance, no OOB without help--Patient agreeable.
[2024-08-21] MEDS: NOVOLOG FLEXPEN-LOW RESISTANCE 5 UNITS SC (18:39)
[2024-08-21 21:22] LABS: Glucose - Point of Care 62 mg/dl (70-99)
[2024-08-21 21:58] LABS: Glucose - Point of Care 83 mg/dl (70-99)
[2024-08-21] MEDS: LANTUS SC (22:23)
[2024-08-21] MEDS: DESYREL 100 MG PO (22:24)
[2024-08-21] MEDS: SEROQUEL 300 MG PO (22:24)
[2024-08-21 23:59] LABS: Glucose - Point of Care 269 mg/dl (70-99)
[2024-08-22] MEDS: LANTUS 0.3 UNITS SC (00:19)
[2024-08-22 03:04] VITALS: BP 136/74
[2024-08-22 03:13] LABS: Glucose - Point of Care 299 mg/dl (70-99)
[2024-08-22 07:39] VITALS: BP 135/75
[2024-08-22 08:07] LABS: Glucose - Point of Care 251 mg/dl (70-99)
[2024-08-22 08:54] LABS: % Basophils 1.6 % (0-2); % Eosinophils 4.6 % (0-6); % Immature Granulocytes 0.6 % (0-0.5); % Lymphocytes 16.3 % (20.5-51.1); % Monocytes 10.4 % (1.7-9.3); % Neutrophils 66.5 % (42.2-75.2); Absolute Basophils 0.1 10^3/uL (0-0.2); Absolute Eosinophils 0.3 10^3/uL (0-0.7); Absolute Lymphocytes 1.1 10^3/uL (1.2-3.4); Absolute Monocytes 0.7 10^3/uL (0.1-0.6); Absolute Neutrophils 4.6 10^3/uL (1.4-6.5); Hematocrit 32.3 % (39.0-52.0); Hemoglobin 11.7 g/dL (13.0-18.0); Mean Corp Hgb Conc. 36.2 g/dL (33.0-37.0); Mean Corpuscular Hgb 32.3 pg (27.0-31.0); Mean Corpuscular Volume 89.2 fL (80.0-94.0); Mean Platelet Volume 10.4 fL (7.4-10.4); Nucleated Red Blood Cells % 0 % (-); Platelet Count 78 10^3/uL (130-400); Red Blood Cell Count 3.62 10^6/uL (4.70-6.10); Red Cell Dist. Width 14.1 % (11.5-14.5); White Blood Cell Count 6.9 10^3/uL (4.8-10.8)
[2024-08-22 09:29] LABS: Blood Urea Nitrogen 17 mg/dl (9-20); Calcium 8.6 mg/dl (8.4-10.2); Carbon Dioxide 23 mmol/L (22-30); Chloride 107 mmol/L (98-107); Estimated Creatinine Clearance 89 ml/min; Glucose 224 mg/dl (70-99); Potassium 3.7 mmol/L (3.5-5.1); Sodium 135 mmol/L (135-145); eGFR > 60.00
[2024-08-22] MEDS: NOVOLOG FLEXPEN-LOW RESISTANCE 3 UNITS SC (10:23)
[2024-08-22] MEDS: NOVOLOG FLEXPEN 10 UNITS SC (10:28)
[2024-08-22] MEDS: ULTRAM 25 MG PO ×2 (10:33→19:44)
[2024-08-22] MEDS: ALDACTONE 100 MG PO (10:34)
[2024-08-22] MEDS: NORVASC 5 MG PO (10:35)
[2024-08-22] MEDS: FOLVITE 1 MG PO (10:35)
[2024-08-22] MEDS: VITAMIN B1 100 MG PO (10:35)
[2024-08-22] MEDS: HEPARIN 5000 UNITS SC ×2 (10:36→19:51)
[2024-08-22] MEDS: COREG 6.25 MG PO ×2 (10:36→19:50)
[2024-08-22] MEDS: LIDOCAINE 4% PATCH 1 PATCH TOPICAL (10:38)
[2024-08-22] MEDS: DUPHALAC/CHRONULAC 20 GRAMS PO ×2 (10:49→17:22)
[2024-08-22] MEDS: NICODERM TRANSDERMAL 14 MG TRANSDERM (10:49)
[2024-08-22] MEDS: TYLENOL 650 MG PO (10:50)
[2024-08-22 11:21] VITALS: BP 137/71
[2024-08-22 14:57] LABS: Glucose - Point of Care 183 mg/dl (70-99)
[2024-08-22] MEDS: NOVOLOG FLEXPEN-LOW RESISTANCE 1 UNITS SC (14:58)
[2024-08-22] MEDS: NOVOLOG FLEXPEN 15 UNITS SC ×2 (14:58→17:29)
--- NOTE | 2024-08-22 15:10 | W.PN.HOSP.TC ---
Today's Communication/Plan
-
Monitor vital signs
see plan
PT/OT; patient now agreeable for immobilizer
pain control
Assessment / Plan
Assessment / Plan
General: Well Developed, Well Nourished and No Apparent Distress
HEENT: NormoCephalic, Moist mucous membranes and Atraumatic
Respiratory: Clear
Cardiac: S1/S2 and Regular Rhythm; No Murmur or Rub
GI: Soft, Non Tender, Non Distended and Normal Bowel Sounds
Musculoskeletal: Left knee immobilizer
Neuro: Nonfocal/grossly intact
Acute traumatic Patellar fracture
-X-ray yesterday shows nondisplaced vertical fracture along the medial patella with associated moderate joint effusion/prepatellar soft tissue swelling
has left knee immobilizer; he is to follow-up with orthopedics outpatient. Could not manage at home with crutches. PT/OT. Case management
Pain control
Discussed with Dr. Khalil from orthopedics, fracture is very nonoperative. Patient is allowed weightbearing as tolerated
Today patient appeared to be noncompliant with physical therapy as she did not wanted to put immobilizer. Now appears to agree with physical therapy.
Reported seizure 08/20 while in the hospital
Broke with Ativan
First episode
Neurology following, CT negative for acute CVA. Patient refused contrast. MRI brain with possible old infarction. Moderate atrophy.
EEG noted
Was Keppra loaded, now stopped
# Hypokalemia
Monitor
Warnicke's encephalopathy
-Continue lactulose
-Continue Seroquel
-Continue trazodone
Hyponatremia
Monitor
Chronic thrombocytopenia likely secondary to cirrhosis
History of former cocaine/alcohol use disorder
Type 2 diabetes
hypoglycemia 08/19
insulin lowered; monitor
sliding scale
Hypertension
-Continue amlodipine, Coreg
-Continue spironolactone
Smoker
Full code
DVT prophylaxis�heparin
Anticipated Discharge: Within 24 hours
Subjective/Interval History
-
Date of Service: August 22, 2024
Denies nausea
Objective Data
-
Labs:
Laboratory Results
08/22/24
07:00
WBC 6.9
Hgb 11.7 L
Hct 32.3 L
Plt Count 78 L
Sodium 135
Potassium 3.7
Chloride 107
Carbon Dioxide 23
BUN 17
Creatinine 1.1
Glucose 224 H
Calcium 8.6
Vital Signs:
Vital Signs
Temp Pulse Resp BP Pulse Ox
97.8 F 79 18 137/71 97
08/22/24 11:21 08/22/24 11:21 08/22/24 11:21 08/22/24 11:21 08/22/24 11:21
I&O
08/21/24 08/22/24 08/23/24
06:59 06:59 06:59
Intake Total 480 / 480 1440 / 1440
Output Total 3175 / 3175 600 / 600
Balance -2695 / -2695 840 / 840
[2024-08-22 15:33] VITALS: BP 142/84
--- NOTE | 2024-08-22 16:11 | CM ---
CM reviewed chart, TT from , patient switched to inpatient status. Patient reports he was living at a [facility], is unable to return to house due to falling down the stairs, has bee there about 6 months. Patient unsure where he was living
prior to recovery house, believes he was in a different recovery house. Patient reports his brother lives in [place], does not have a close relationship with family. Patient confirms PCP [facility], [facility]. Patient
reports he has been admitted to inpatient psych within the past year, unsure where (per previous CM note, patient was in [facility] and [facility] ([place]). Patient agreeable to SNF, would also like to meet with
BCAREs, message to Ke, reports patient previously denied BCAREs, will have second shift meet with patient. CM will continue to follow for all discharge planning needs.
Plan; SNF pending accepting facility, will require insurance auth, will require level two assessment, patient aware.
[2024-08-22] MEDS: ASPIR LOW (ENTERIC COATED) 81 MG PO (17:14)
[2024-08-22 17:28] LABS: Glucose - Point of Care 142 mg/dl (70-99)
[2024-08-22] MEDS: NOVOLOG FLEXPEN-LOW RESISTANCE SC (17:28)
--- NOTE | 2024-08-22 17:31 | PTCARENOTE ---
Patient currently in bed after eating dinner in bed. Left leg is currently maintained in knee immobilizer. Patient c/o pain to left knee when asked, but declines ordered pain medication. Call alves in reach. Patient verbalizes understanding to ring
for needs.
[2024-08-22 19:30] VITALS: BP 128/66
[2024-08-22 21:15] LABS: Glucose - Point of Care 96 mg/dl (70-99)
[2024-08-22] MEDS: DUPHALAC/CHRONULAC PO (21:40)
[2024-08-22] MEDS: DESYREL 100 MG PO (21:40)
[2024-08-22] MEDS: SEROQUEL 300 MG PO (21:42)
[2024-08-22 23:23] VITALS: BP 121/69
[2024-08-23 03:20] VITALS: BP 134/76
[2024-08-23 07:30] LABS: Glucose - Point of Care 189 mg/dl (70-99)
[2024-08-23 07:42] VITALS: BP 142/81
[2024-08-23 08:43] LABS: % Basophils 1.6 % (0-2); % Eosinophils 4.9 % (0-6); % Immature Granulocytes 0.9 % (0-0.5); % Lymphocytes 12.2 % (20.5-51.1); % Neutrophils 70.4 % (42.2-75.2); Absolute Basophils 0.1 10^3/uL (0-0.2); Absolute Eosinophils 0.3 10^3/uL (0-0.7); Absolute Immature Granulocytes 0.1 10^3/uL (0-0.05); Absolute Lymphocytes 0.8 10^3/uL (1.2-3.4); Absolute Monocytes 0.7 10^3/uL (0.1-0.6); Absolute Neutrophils 4.8 10^3/uL (1.4-6.5); Hematocrit 35.1 % (39.0-52.0); Hemoglobin 12.4 g/dL (13.0-18.0); Mean Corp Hgb Conc. 35.3 g/dL (33.0-37.0); Mean Corpuscular Hgb 31.9 pg (27.0-31.0); Mean Corpuscular Volume 90.2 fL (80.0-94.0); Mean Platelet Volume 10.6 fL (7.4-10.4); Nucleated Red Blood Cells % 0 % (-); Platelet Count 75 10^3/uL (130-400); Red Blood Cell Count 3.89 10^6/uL (4.70-6.10); Red Cell Dist. Width 14.2 % (11.5-14.5); White Blood Cell Count 6.8 10^3/uL (4.8-10.8)
[2024-08-23 09:29] LABS: Blood Urea Nitrogen 16 mg/dl (9-20); Calcium 8.6 mg/dl (8.4-10.2); Carbon Dioxide 21 mmol/L (22-30); Chloride 108 mmol/L (98-107); Estimated Creatinine Clearance 89 ml/min; Glucose 191 mg/dl (70-99); Potassium 4.3 mmol/L (3.5-5.1); Sodium 134 mmol/L (135-145); eGFR > 60.00
[2024-08-23 10:35] LABS: Glucose - Point of Care 260 mg/dl (70-99)
[2024-08-23] MEDS: DUPHALAC/CHRONULAC 20 GRAMS PO ×2 (10:35→15:01)
[2024-08-23] MEDS: NOVOLOG FLEXPEN 15 UNITS SC ×2 (10:36→13:12)
[2024-08-23] MEDS: NOVOLOG FLEXPEN-LOW RESISTANCE 1 UNITS SC (10:36)
[2024-08-23] MEDS: NICODERM TRANSDERMAL 14 MG TRANSDERM (10:37)
[2024-08-23] MEDS: LIDOCAINE 4% PATCH 1 PATCH TOPICAL (10:38)
[2024-08-23] MEDS: COREG 6.25 MG PO ×2 (10:39→20:42)
[2024-08-23] MEDS: FOLVITE 1 MG PO (10:39)
[2024-08-23] MEDS: ASPIR LOW (ENTERIC COATED) 81 MG PO (10:39)
[2024-08-23] MEDS: HEPARIN 5000 UNITS SC ×2 (10:40→20:49)
[2024-08-23] MEDS: ALDACTONE 100 MG PO (10:45)
[2024-08-23] MEDS: VITAMIN B1 100 MG PO (10:45)
[2024-08-23] MEDS: NORVASC 5 MG PO (10:46)
[2024-08-23 11:13] VITALS: BP 141/90
[2024-08-23 11:33] LABS: Glucose - Point of Care 269 mg/dl (70-99)
[2024-08-23] MEDS: NOVOLOG FLEXPEN-LOW RESISTANCE 3 UNITS SC (13:12)
--- NOTE | 2024-08-23 13:14 | W.PN.HOSP.TC ---
Today's Communication/Plan
-
Monitor vitals
See plan
Pain control
PT/OT
Level 2 assessment per case monitor
Assessment / Plan
Assessment / Plan
General: Well Developed, Well Nourished and No Apparent Distress
HEENT: NormoCephalic, Moist mucous membranes and Atraumatic
Respiratory: Clear
Cardiac: S1/S2 and Regular Rhythm; No Murmur or Rub
GI: Soft, Non Tender, Non Distended and Normal Bowel Sounds
Musculoskeletal: Left knee immobilizer
Neuro: Nonfocal/grossly intact
Acute traumatic Patellar fracture
-X-ray yesterday shows nondisplaced vertical fracture along the medial patella with associated moderate joint effusion/prepatellar soft tissue swelling
has left knee immobilizer; he is to follow-up with orthopedics outpatient. Could not manage at home with crutches. PT/OT. Case management
Pain control
Discussed with Dr. Khalil from orthopedics, fracture is very nonoperative. Patient is allowed weightbearing as tolerated
Today patient appeared to be noncompliant with physical therapy as she did not wanted to put immobilizer. Now appears to agree with physical therapy.
Per case monitor need level 2 assessment for SNF. Psychiatry notified.
Reported seizure 08/20 while in the hospital
Broke with Ativan
First episode
Neurology following, CT negative for acute CVA. Patient refused contrast. MRI brain with possible old infarction. Moderate atrophy.
EEG noted
Was Keppra loaded, now stopped
# Hypokalemia
Monitor
Hyponatremia
monitor
Warnicke's encephalopathy
-Continue lactulose
-Continue Seroquel
-Continue trazodone
Hyponatremia
Monitor
Chronic thrombocytopenia likely secondary to cirrhosis
History of former cocaine/alcohol use disorder
Type 2 diabetes
hypoglycemia 08/19
insulin lowered; monitor
sliding scale
Hypertension
-Continue amlodipine, Coreg
-Continue spironolactone
Smoker
Full code
DVT prophylaxis�heparin
Anticipated Discharge: 24 - 48 hours
Subjective/Interval History
-
Date of Service: August 23, 2024
denies nausea
Objective Data
-
Labs:
Laboratory Results
08/23/24
08:03
WBC 6.8
Hgb 12.4 L
Hct 35.1 L
Plt Count 75 L
Sodium 134 L
Potassium 4.3
Chloride 108 H
Carbon Dioxide 21 L
BUN 16
Creatinine 1.1
Glucose 191 H
Calcium 8.6
Vital Signs:
Vital Signs
Temp Pulse Resp BP Pulse Ox
97.8 F 73 18 141/90 98
08/23/24 11:13 08/23/24 11:13 08/23/24 11:13 08/23/24 11:13 08/23/24 11:13
I&O
08/22/24 08/23/24 08/24/24
06:59 06:59 06:59
Intake Total 1440 / 1440 1440 / 1440
Output Total 600 / 600 2825 / 2825
Balance 840 / 840 -1385 / -1385
--- NOTE | 2024-08-23 14:13 | CON.MD ---
Consultation - Medical
-
49 y/o single man on Disability with history of cocaine abuse (remote), alcohol use (last drink April) and various complications from these including diagnosis of Wernike's Encephalopathy, cirrhosis, T2DM with 2 toes amputated, esophageal
varices (bleed in April 2024), hypertension, and chronic back pain (and now knee pain) was seen in ED 08/17/24, but returned the next day because he was unable to return to the care home given his patellar fracture which resulted from a fall
at the [facility] while carrying his laundry down stairs. There may have been a seizure in the hospital.
He now has some memory problems, including his history of psychiatric and substance abuse treatment. He claims he 'lost his mind' as a consequence of gadolinium contrast and has delusional ideas about this.
He complains of not getting enough pain medication, and also claims that $500 and insurance cards and a debit card, his hat and crutches were stollen from his wallet while in the ED. He is also angry at the Recovery [facility] for not carpeting where he
fell.
He denies being clinically depressed, is not suicidal and denies current auditory or visual hallucinations.
He is alert and oriented to person, place, date and situation. He knows the current president and President Elect. Is agreeable to going to a SNF and wants physical therapy.
PH: Multiple admissions to rehab program and was at [facility] unit in the past. Apparently had rehab and psych unit hospitalization in April. Per notes, was at [facility] and [facility]
([place]). Saw a psychiatrist in [facility]. Has apparently been treated with Zyprexa. Is currently on Seroquel 300 mg. HS. Also on: insulin, tramadol 25 mg. Q 8H; Lidocaine patch, nicotine patch, spironolactone, amlodipine and carvedilol as
well as folic acid, thyamine and ASA 81 mg.
SH: Graduated from [employer]. Some college at [employer] and [employer] but did not graduate either. Had a very good job with a [employer] and was sent around the world on business extensively. 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 Disabled since
2008 due to his back and gadolinium reaction. License suspended after DUI -- has not driven since 2006.
Used cocaine for several years until mid-twenties. No opioid abuse. Used crack cocaine and then snorted cocaine. Minimal experimentation with LSD and psilocybin. No use of MDMA. Cocaine caused paranoia. No marijuana use for three years. Was
sober for 2 years and relapsed in April for two weeks which ended with varcies bleed. Attends AA. Intermittent compliance with lactulose.
Diagnosis: Alcohol Use Disorder, in remission
Cocaine Use Disorder, in remission
Possible Paranoid Disorder
Plan: CM to arrange SNF placement. He is not acutely suicidal, homicidal or actively psychotic which would preclude placement and has history of psychiatric and multiple medical problems. Likey his moderate dose of Seroquel is mitigating
psychiatric symptoms. I have no objection to him continuing on this.
He should be discouraged from smoking cigarettes and better management of diabetes and cirrhosis.
He ultimately should reside in a Recovery House or similar to reduce risk of relapse.
Psychiatry will sign off.
[2024-08-23] MEDS: ULTRAM 25 MG PO ×2 (15:00→21:16)
[2024-08-23 15:35] VITALS: BP 135/83
[2024-08-23 17:07] LABS: Glucose - Point of Care 200 mg/dl (70-99)
[2024-08-23] MEDS: NOVOLOG FLEXPEN-LOW RESISTANCE 2 UNITS SC (18:25)
[2024-08-23] MEDS: NOVOLOG FLEXPEN 18 UNITS SC (18:26)
[2024-08-23] MEDS: ROXICODONE 5 MG PO (18:32)
[2024-08-23 19:50] VITALS: BP 115/81
[2024-08-23 20:58] LABS: Glucose - Point of Care 182 mg/dl (70-99)
[2024-08-23] MEDS: DESYREL 100 MG PO (21:16)
[2024-08-23] MEDS: DUPHALAC/CHRONULAC PO (21:17)
[2024-08-23] MEDS: LANTUS 0.45 UNITS SC (21:18)
[2024-08-23] MEDS: SEROQUEL 300 MG PO (21:23)
[2024-08-23 23:12] VITALS: BP 134/77
[2024-08-24 03:11] LABS: Glucose - Point of Care 202 mg/dl (70-99)
[2024-08-24 03:37] VITALS: BP 136/78
[2024-08-24] MEDS: ULTRAM 25 MG PO ×3 (05:38→22:00)
[2024-08-24 07:34] LABS: Glucose - Point of Care 229 mg/dl (70-99)
[2024-08-24 07:38] VITALS: BP 134/79
[2024-08-24 08:15] LABS: % Basophils 1.3 % (0-2); % Eosinophils 6.4 % (0-6); % Immature Granulocytes 1.1 % (0-0.5); % Lymphocytes 13.7 % (20.5-51.1); % Neutrophils 67.5 % (42.2-75.2); Absolute Basophils 0.1 10^3/uL (0-0.2); Absolute Eosinophils 0.5 10^3/uL (0-0.7); Absolute Immature Granulocytes 0.1 10^3/uL (0-0.05); Absolute Monocytes 0.7 10^3/uL (0.1-0.6); Absolute Neutrophils 4.8 10^3/uL (1.4-6.5); Hematocrit 34.9 % (39.0-52.0); Hemoglobin 12.5 g/dL (13.0-18.0); Mean Corp Hgb Conc. 35.8 g/dL (33.0-37.0); Mean Corpuscular Hgb 32.1 pg (27.0-31.0); Mean Corpuscular Volume 89.5 fL (80.0-94.0); Mean Platelet Volume 10.5 fL (7.4-10.4); Nucleated Red Blood Cells % 0 % (-); Platelet Count 82 10^3/uL (130-400); White Blood Cell Count 7.1 10^3/uL (4.8-10.8)
[2024-08-24 08:44] LABS: Blood Urea Nitrogen 16 mg/dl (9-20); Calcium 8.5 mg/dl (8.4-10.2); Carbon Dioxide 22 mmol/L (22-30); Chloride 105 mmol/L (98-107); Estimated Creatinine Clearance 109 ml/min; Glucose 171 mg/dl (70-99); Potassium 4.2 mmol/L (3.5-5.1); Sodium 133 mmol/L (135-145); eGFR > 60.00
[2024-08-24] MEDS: NOVOLOG FLEXPEN-LOW RESISTANCE 2 UNITS SC (09:35)
[2024-08-24] MEDS: NOVOLOG FLEXPEN 18 UNITS SC ×3 (09:35→17:36)
[2024-08-24] MEDS: NICODERM TRANSDERMAL 14 MG TRANSDERM (09:36)
[2024-08-24] MEDS: VITAMIN B1 100 MG PO (09:37)
[2024-08-24] MEDS: ALDACTONE 100 MG PO (09:37)
[2024-08-24] MEDS: ASPIR LOW (ENTERIC COATED) 81 MG PO (09:37)
[2024-08-24] MEDS: NORVASC 5 MG PO (09:38)
[2024-08-24] MEDS: FOLVITE 1 MG PO (09:38)
[2024-08-24] MEDS: DUPHALAC/CHRONULAC 20 GRAMS PO ×2 (09:38→17:12)
[2024-08-24] MEDS: LIDOCAINE 4% PATCH 1 PATCH TOPICAL (09:39)
[2024-08-24] MEDS: COREG 6.25 MG PO ×2 (09:39→20:03)
[2024-08-24] MEDS: HEPARIN 5000 UNITS SC ×2 (09:40→20:03)
[2024-08-24 11:01] VITALS: BP 131/81
[2024-08-24 11:36] LABS: Glucose - Point of Care 328 mg/dl (70-99)
[2024-08-24] MEDS: NOVOLOG FLEXPEN-LOW RESISTANCE 4 UNITS SC (12:30)
--- NOTE | 2024-08-24 13:23 | W.PN.HOSP.TC ---
Today's Communication/Plan
-
Monitor vitals
See plan
Seen by psychiatry
Waiting placement, level 2 assessment
pain control
Assessment / Plan
Assessment / Plan
General: Well Developed, Well Nourished and No Apparent Distress
HEENT: NormoCephalic, Moist mucous membranes and Atraumatic
Respiratory: Clear
Cardiac: S1/S2 and Regular Rhythm; No Murmur or Rub
GI: Soft, Non Tender, Non Distended and Normal Bowel Sounds
Musculoskeletal: Left knee immobilizer
Neuro: Nonfocal/grossly intact
Acute traumatic Patellar fracture
-X-ray yesterday shows nondisplaced vertical fracture along the medial patella with associated moderate joint effusion/prepatellar soft tissue swelling
has left knee immobilizer; he is to follow-up with orthopedics outpatient. Could not manage at home with crutches. PT/OT. Case management
Pain control
Discussed with Dr. Khalil from orthopedics, fracture is very nonoperative. Patient is allowed weightbearing as tolerated
Today patient appeared to be noncompliant with physical therapy as she did not wanted to put immobilizer. Now appears to agree with physical therapy.
Per behavioral health case manager need level 2 assessment for SNF. Psychiatry notified.
Reported seizure 08/20 while in the hospital
Broke after IV Ativan
First episode. Does not need any more antiseizure meds
Neurology following, CT negative for acute CVA. Patient refused contrast. MRI brain with possible old infarction. Moderate atrophy.
EEG noted
Was Keppra loaded, now stopped
# Hypokalemia
Monitor
Hyponatremia
monitor
Warnicke's encephalopathy
-Continue lactulose
-Continue Seroquel
-Continue trazodone
Hyponatremia
Monitor
Chronic thrombocytopenia likely secondary to cirrhosis
History of former cocaine/alcohol use disorder
Type 2 diabetes
hypoglycemia 08/19
insulin lowered; monitor
sliding scale
Hypertension
-Continue amlodipine, Coreg
-Continue spironolactone
Smoker
Full code
DVT prophylaxis�heparin
Anticipated Discharge: Within 24 hours
Subjective/Interval History
-
Date of Service: August 24, 2024
denies nausea
Objective Data
-
Labs:
Laboratory Results
08/24/24
07:11
WBC 7.1
Hgb 12.5 L
Hct 34.9 L
Plt Count 82 L
Sodium 133 L
Potassium 4.2
Chloride 105
Carbon Dioxide 22
BUN 16
Creatinine 0.9
Glucose 171 H
Calcium 8.5
Vital Signs:
Vital Signs
Temp Pulse Resp BP Pulse Ox
98.3 F 73 20 131/81 96
08/24/24 11:01 08/24/24 11:01 08/24/24 11:01 08/24/24 11:01 08/24/24 11:01
I&O
08/23/24 08/24/24 08/25/24
06:59 06:59 06:59
Intake Total 1440 / 1440 1920 / 1920
Output Total 2825 / 2825 5460 / 5460
Balance -1385 / -1385 -3540 / -3540
[2024-08-24 14:37] VITALS: BP 126/85
[2024-08-24 17:30] LABS: Glucose - Point of Care 143 mg/dl (70-99)
[2024-08-24] MEDS: NOVOLOG FLEXPEN-LOW RESISTANCE SC (17:36)
[2024-08-24] MEDS: TYLENOL 650 MG PO ×2 (17:38→22:07)
[2024-08-24 20:02] VITALS: BP 132/86
[2024-08-24 21:52] LABS: Glucose - Point of Care 152 mg/dl (70-99)
[2024-08-24] MEDS: SEROQUEL 300 MG PO (21:59)
[2024-08-24] MEDS: DUPHALAC/CHRONULAC PO ×2 (21:59→22:06)
[2024-08-24] MEDS: LANTUS 0.45 UNITS SC (21:59)
[2024-08-24] MEDS: DESYREL 100 MG PO (21:59)
[2024-08-24 23:03] VITALS: BP 149/81
[2024-08-25] MEDS: ULTRAM 25 MG PO ×3 (05:34→21:10)
[2024-08-25] MEDS: HEPARIN 5000 UNITS SC ×2 (07:33→20:50)
[2024-08-25] MEDS: ASPIR LOW (ENTERIC COATED) 81 MG PO (07:33)
[2024-08-25] MEDS: ALDACTONE 100 MG PO (07:33)
[2024-08-25] MEDS: LIDOCAINE 4% PATCH 1 PATCH TOPICAL (07:34)
[2024-08-25] MEDS: NICODERM TRANSDERMAL 14 MG TRANSDERM (07:34)
[2024-08-25] MEDS: VITAMIN B1 100 MG PO (07:35)
[2024-08-25] MEDS: FOLVITE 1 MG PO (07:35)
[2024-08-25] MEDS: NORVASC 5 MG PO (07:35)
[2024-08-25] MEDS: DUPHALAC/CHRONULAC 20 GRAMS PO (07:35)
[2024-08-25] MEDS: COREG 6.25 MG PO ×2 (07:35→20:51)
[2024-08-25 07:47] LABS: Glucose - Point of Care 185 mg/dl (70-99)
[2024-08-25] MEDS: NOVOLOG FLEXPEN 18 UNITS SC ×3 (07:47→17:16)
[2024-08-25] MEDS: NOVOLOG FLEXPEN-LOW RESISTANCE 1 UNITS SC (07:47)
[2024-08-25 07:55] VITALS: BP 138/73
[2024-08-25 09:10] LABS: Blood Urea Nitrogen 19 mg/dl (9-20); Calcium 9.1 mg/dl (8.4-10.2); Carbon Dioxide 19 mmol/L (22-30); Chloride 106 mmol/L (98-107); Estimated Creatinine Clearance 109 ml/min; Glucose 196 mg/dl (70-99); Potassium 4.5 mmol/L (3.5-5.1); Sodium 132 mmol/L (135-145); eGFR > 60.00
[2024-08-25 09:11] LABS: % Basophils 1.6 % (0-2); % Eosinophils 6.2 % (0-6); % Immature Granulocytes 1.2 % (0-0.5); % Lymphocytes 12.7 % (20.5-51.1); % Monocytes 9.1 % (1.7-9.3); % Neutrophils 69.2 % (42.2-75.2); Absolute Basophils 0.1 10^3/uL (0-0.2); Absolute Eosinophils 0.5 10^3/uL (0-0.7); Absolute Immature Granulocytes 0.1 10^3/uL (0-0.05); Absolute Monocytes 0.7 10^3/uL (0.1-0.6); Absolute Neutrophils 5.2 10^3/uL (1.4-6.5); Hematocrit 35.4 % (39.0-52.0); Hemoglobin 12.8 g/dL (13.0-18.0); Mean Corp Hgb Conc. 36.2 g/dL (33.0-37.0); Mean Corpuscular Volume 88.5 fL (80.0-94.0); Mean Platelet Volume 10.8 fL (7.4-10.4); Nucleated Red Blood Cells % 0 % (-); Platelet Count 94 10^3/uL (130-400); Red Cell Dist. Width 13.8 % (11.5-14.5); White Blood Cell Count 7.6 10^3/uL (4.8-10.8)
--- NOTE | 2024-08-25 12:19 | W.PN.HOSP.TC ---
Today's Communication/Plan
-
Level 2 assessment presented
Continue as needed analgesia and PT
Trend BMP and CBC
Assessment / Plan
Assessment / Plan
#Acute traumatic Patellar fracture
-X-ray with nondisplaced vertical fracture along the medial patella with associated moderate joint effusion/prepatellar soft tissue swelling
-has left knee immobilizer; he is to follow-up with orthopedics outpatient. Could not manage at home with crutches. PT/OT. Case management
-Discussed with Dr. Khalil from orthopedics, fracture is very nonoperative. Patient is allowed weightbearing as tolerated
-Remains on analgesic regimen with Tylenol and tramadol
-Per outpatient case manager need level 2 assessment for SNF. Evaluated by psych, no contraindications to SNF
-Pending placement to SNF
#Reported seizure
-Event occurred on 08/20 while in the hospital, broke with IV Ativan
-First episode, was evaluated by neurology, no indication for standing antiepileptic regimen
-Status post Keppra load, now not on any AED
-CT head negative, MRI with possible old infarction and no acute finding
-EEG noted
#Hyponatremia
-Mild, sodium in the mid 130s
-Possible SIADH secondary to pain
-Continue to trend BMP
#Wernicke's encephalopathy
#EtOH abuse
-Continue lactulose, Seroquel, trazodone
-Continue thiamine supplementation
-No signs of current alcohol withdrawal here
#Chronic thrombocytopenia
#Suspected liver cirrhosis
-Has alcohol abuse history
-Trend CBC here
-Will need to follow-up with GI as outpatient
#History of former cocaine/alcohol use disorder
#Type 2 diabetes
-Insulin-dependent, Home meds include long-acting and short acting insulin
-Had hypoglycemia noted per labs on 08/19, insulin was de-escalated
-Remains on ISS with Accu-Cheks here
-BG goal 140�180, avoid hypoglycemia
#Hypertension
-Continue amlodipine, Coreg
-Continue spironolactone
#current Smoker
-Encourage cessation
CODE STATUS: Full code
Diet: Regular
DVT prophylaxis: Subcutaneous heparin
Medically stable for discharge to [facility] once level 2 assessment complete, insurance authorized, and bed available
Anticipated Discharge: Within 24 hours
Subjective/Interval History
-
Date of Service: August 25, 2024
Seen and examined at the bedside. No acute events reported overnight. AFVSS this morning
States he still has pain in his left knee as well as lower back. He is able to lift his left leg off the bed
Denies any acute complaint
Objective Data
-
Labs:
Laboratory Results
08/25/24
08:06
WBC 7.6
Hgb 12.8 L
Hct 35.4 L
Plt Count 94 L
Sodium 132 L
Potassium 4.5
Chloride 106
Carbon Dioxide 19 L
BUN 19
Creatinine 0.9
Glucose 196 H
Calcium 9.1
Vital Signs:
Vital Signs
Temp Pulse Resp BP Pulse Ox
97.8 F 76 16 138/73 98
08/25/24 07:55 08/25/24 07:55 08/25/24 07:55 08/25/24 07:55 08/25/24 07:55
I&O
08/24/24 08/25/24 08/26/24
06:59 06:59 06:59
Intake Total 1920 / 1920 1680 / 1680
Output Total 5460 / 5460 1999 / 1999 1000 / 999
Balance -3540 / -3540 -320 / -320 -1000 / -1000
Review of Systems
-
History Source: Patient
All other systems: Reviewed and negative
Physical Exam
-
General: Well Developed, Well Nourished, No Apparent Distress and Comfortable
HEENT: Normocephalic, Atraumatic, Moist Mucous Membranes and Anicteric
Respiratory: Clear to Auscultation and Non Labored Respirations
Cardiac: Regular Rhythm and S1/S2; Negative Murmur, Rub or Gallop
GI: Soft, Nontender, Nondistended and Normal Bowel Sounds
Musculoskeletal: No Clubbing, No Cyanosis, No Edema and Other (Left leg brace)
Skin: Warm and Dry; Negative Rash
Neuro: AO x 3 and Nonfocal/Grossly Intact; Negative Tremors
Psych: Calm
Data Reviewed
-
Labs: Labs Reviewed by me and Discussed with Patient
[2024-08-25 12:40] LABS: Glucose - Point of Care 230 mg/dl (70-99)
[2024-08-25] MEDS: NOVOLOG FLEXPEN-LOW RESISTANCE 2 UNITS SC (12:40)
[2024-08-25 13:00] LABS: Glucose - Point of Care 218 mg/dl (70-99)
--- NOTE | 2024-08-25 13:24 | PTCARENOTE ---
Patient refuses to change into gown. Insisting on wearing soiled hoodie. Pt. did clean up and use no rinse shampoo cap. Linens changed.
--- NOTE | 2024-08-25 14:32 | CM ---
CM reviewed chart, met with patient bedside to complete level two assessment paperwork. Paperwork completed, faxed to [phone]. Patient will require auth for SNF once facility found, level two completed. CM will continue to follow for all
discharge planning needs.
Plan; awaiting level two from [facility].
[2024-08-25] MEDS: DUPHALAC/CHRONULAC PO ×2 (14:38→22:05)
[2024-08-25 15:55] VITALS: BP 145/89
[2024-08-25 17:14] LABS: Glucose - Point of Care 122 mg/dl (70-99)
[2024-08-25] MEDS: NOVOLOG FLEXPEN-LOW RESISTANCE SC (17:16)
[2024-08-25 20:41] VITALS: BP 150/83
[2024-08-25] MEDS: SEROQUEL 300 MG PO (21:10)
[2024-08-25] MEDS: DESYREL 100 MG PO (21:10)
[2024-08-25 21:35] LABS: Glucose - Point of Care 176 mg/dl (70-99)
[2024-08-25] MEDS: LANTUS 0.45 UNITS SC (21:52)
[2024-08-25 23:00] VITALS: BP 140/83
[2024-08-26] MEDS: ULTRAM 25 MG PO ×3 (06:26→21:29)
[2024-08-26 07:23] VITALS: BP 141/85
[2024-08-26 07:38] LABS: Glucose - Point of Care 153 mg/dl (70-99)
[2024-08-26] MEDS: DUPHALAC/CHRONULAC PO ×2 (08:18→14:35)
[2024-08-26] MEDS: VITAMIN B1 100 MG PO (08:18)
[2024-08-26] MEDS: ASPIR LOW (ENTERIC COATED) 81 MG PO (08:19)
[2024-08-26] MEDS: FOLVITE 1 MG PO (08:19)
[2024-08-26] MEDS: COREG 6.25 MG PO ×2 (08:19→21:29)
[2024-08-26] MEDS: NOVOLOG FLEXPEN 18 UNITS SC ×3 (08:19→17:17)
[2024-08-26] MEDS: NOVOLOG FLEXPEN-LOW RESISTANCE 1 UNITS SC (08:19)
[2024-08-26] MEDS: NORVASC 5 MG PO (08:19)
[2024-08-26] MEDS: ALDACTONE 100 MG PO (08:19)
[2024-08-26] MEDS: NICODERM TRANSDERMAL 14 MG TRANSDERM (08:20)
[2024-08-26] MEDS: LIDOCAINE 4% PATCH 1 PATCH TOPICAL (08:20)
[2024-08-26] MEDS: HEPARIN 5000 UNITS SC ×2 (08:21→21:29)
[2024-08-26 09:06] LABS: % Basophils 1.5 % (0-2); % Eosinophils 6.4 % (0-6); % Lymphocytes 12.2 % (20.5-51.1); % Monocytes 9.9 % (1.7-9.3); Absolute Basophils 0.1 10^3/uL (0-0.2); Absolute Eosinophils 0.5 10^3/uL (0-0.7); Absolute Immature Granulocytes 0.1 10^3/uL (0-0.05); Absolute Lymphocytes 0.9 10^3/uL (1.2-3.4); Absolute Monocytes 0.7 10^3/uL (0.1-0.6); Absolute Neutrophils 4.9 10^3/uL (1.4-6.5); Hematocrit 35.1 % (39.0-52.0); Hemoglobin 12.6 g/dL (13.0-18.0); Mean Corp Hgb Conc. 35.9 g/dL (33.0-37.0); Mean Corpuscular Hgb 32.1 pg (27.0-31.0); Mean Corpuscular Volume 89.3 fL (80.0-94.0); Mean Platelet Volume 10.2 fL (7.4-10.4); Nucleated Red Blood Cells % 0 % (-); Platelet Count 93 10^3/uL (130-400); Red Blood Cell Count 3.93 10^6/uL (4.70-6.10); Red Cell Dist. Width 14.2 % (11.5-14.5); White Blood Cell Count 7.1 10^3/uL (4.8-10.8)
[2024-08-26 09:36] LABS: Blood Urea Nitrogen 18 mg/dl (9-20); Calcium 9.2 mg/dl (8.4-10.2); Carbon Dioxide 19 mmol/L (22-30); Chloride 107 mmol/L (98-107); Estimated Creatinine Clearance 89 ml/min; Glucose 149 mg/dl (70-99); Potassium 4.5 mmol/L (3.5-5.1); Sodium 132 mmol/L (135-145); eGFR > 60.00
[2024-08-26 11:30] LABS: Glucose - Point of Care 223 mg/dl (70-99)
[2024-08-26] MEDS: NOVOLOG FLEXPEN-LOW RESISTANCE 2 UNITS SC (11:38)
--- NOTE | 2024-08-26 13:27 | W.PN.HOSP.TC ---
Today's Communication/Plan
-
Pending SNF placement
Lab holiday tomorrow
Assessment / Plan
Assessment / Plan
#Acute traumatic Patellar fracture
-X-ray with nondisplaced vertical fracture along the medial patella with associated moderate joint effusion/prepatellar soft tissue swelling
-has left knee immobilizer; he is to follow-up with orthopedics outpatient. Could not manage at home with crutches. PT/OT. Case management
-Discussed with Dr. Khalil from orthopedics, fracture is very nonoperative. Patient is allowed weightbearing as tolerated
-Remains on analgesic regimen with Tylenol and tramadol
-Per adult protective caseworker need level 2 assessment for SNF. Evaluated by psych, no contraindications to SNF
-Pending placement to SNF
#Reported seizure
-Event occurred on 08/20 while in the hospital, broke with IV Ativan
-First episode, was evaluated by neurology, no indication for standing antiepileptic regimen
-Status post Keppra load, now not on any AED
-CT head negative, MRI with possible old infarction and no acute finding
-EEG noted
#Hyponatremia
-Mild, sodium in the low-mid 130s
-Possible SIADH secondary to pain
-Continue to trend BMP
#Wernicke's encephalopathy
#EtOH abuse
-Continue lactulose, Seroquel, trazodone
-Continue thiamine supplementation
-No signs of current alcohol withdrawal here
#Chronic thrombocytopenia
#Suspected liver cirrhosis
-Has alcohol abuse history
-Trend CBC here
-Will need to follow-up with GI as outpatient
#History of former cocaine/alcohol use disorder
#Type 2 diabetes
-Insulin-dependent, Home meds include long-acting and short acting insulin
-Had hypoglycemia noted per labs on 08/19, insulin was de-escalated
-Remains on ISS with Accu-Cheks here
-BG goal 140�180, avoid hypoglycemia
#Hypertension
-Continue amlodipine, Coreg
-Continue spironolactone
#current Smoker
-Encourage cessation
CODE STATUS: Full code
Diet: Regular
DVT prophylaxis: Subcutaneous heparin
Medically stable for discharge to [facility] once level 2 assessment complete, insurance authorized, and bed available
Anticipated Discharge: 24 - 48 hours
Subjective/Interval History
-
Date of Service: August 26, 2024
Seen and examined at the bedside. No acute events reported overnight. AFVSS this morning
States that the pain in his left knee is improving. Worked with PT yesterday, no significant pain at that time
He denies any acute complaints
Objective Data
-
Labs:
Laboratory Results
08/26/24
08:11
WBC 7.1
Hgb 12.6 L
Hct 35.1 L
Plt Count 93 L
Sodium 132 L
Potassium 4.5
Chloride 107
Carbon Dioxide 19 L
BUN 18
Creatinine 1.1
Glucose 149 H
Calcium 9.2
Vital Signs:
Vital Signs
Temp Pulse Resp BP Pulse Ox
98.3 F 76 20 141/85 100
08/26/24 07:23 08/26/24 07:23 08/26/24 07:23 08/26/24 07:23 08/26/24 07:23
I&O
08/25/24 08/26/24 08/27/24
06:59 06:59 06:59
Intake Total 1680 / 1680 2039
Output Total 1999 4300 / 430
Balance -320 / -320 -2260 / -2260
Review of Systems
-
History Source: Patient
All other systems: Reviewed and negative
Physical Exam
-
General: Well Developed, Well Nourished, No Apparent Distress and Comfortable
HEENT: Normocephalic, Atraumatic, Moist Mucous Membranes and Anicteric
Respiratory: Clear to Auscultation and Non Labored Respirations
Cardiac: Regular Rhythm and S1/S2; Negative Murmur, Rub or Gallop
GI: Soft, Nontender, Nondistended and Normal Bowel Sounds
Musculoskeletal: No Clubbing, No Cyanosis, No Edema and Other (Left knee immobilizer in place; minimal tenderness to palpation of left knee)
Skin: Warm, Dry and Normal Turgor; Negative Rash
Neuro: AO x 3 and Nonfocal/Grossly Intact; Negative Tremors
Psych: Calm
Data Reviewed
-
Labs: Labs Reviewed by me and Discussed with Patient
[2024-08-26 13:33] VITALS: BP 127/76; BP 146/86; PULSE 75; O2SAT 99
[2024-08-26 15:11] VITALS: BP 137/87
[2024-08-26 16:35] VITALS: BP 144/85; PULSE 78; O2SAT 99
[2024-08-26 16:51] LABS: Glucose - Point of Care 312 mg/dl (70-99)
[2024-08-26] MEDS: NOVOLOG FLEXPEN-LOW RESISTANCE 4 UNITS SC (17:18)
[2024-08-26 21:24] LABS: Glucose - Point of Care 142 mg/dl (70-99)
[2024-08-26] MEDS: SEROQUEL 300 MG PO (21:29)
[2024-08-26] MEDS: DUPHALAC/CHRONULAC 20 GRAMS PO (21:29)
[2024-08-26] MEDS: DESYREL 100 MG PO (21:29)
[2024-08-26] MEDS: LANTUS 0.45 UNITS SC (21:30)
[2024-08-26 23:00] VITALS: BP 141/87
[2024-08-27] MEDS: ULTRAM 25 MG PO ×3 (05:59→21:10)
[2024-08-27 07:14] VITALS: BP 130/81
[2024-08-27 08:00] LABS: Glucose - Point of Care 187 mg/dl (70-99)
[2024-08-27] MEDS: ALDACTONE 100 MG PO (09:06)
[2024-08-27] MEDS: LIDOCAINE 4% PATCH 1 PATCH TOPICAL (09:06)
[2024-08-27] MEDS: NICODERM TRANSDERMAL 14 MG TRANSDERM (09:06)
[2024-08-27] MEDS: NOVOLOG FLEXPEN 18 UNITS SC ×3 (09:06→17:35)
[2024-08-27] MEDS: COREG 6.25 MG PO ×2 (09:07→21:11)
[2024-08-27] MEDS: NOVOLOG FLEXPEN-LOW RESISTANCE 1 UNITS SC (09:07)
[2024-08-27] MEDS: VITAMIN B1 100 MG PO (09:07)
[2024-08-27] MEDS: FOLVITE 1 MG PO (09:07)
[2024-08-27] MEDS: ASPIR LOW (ENTERIC COATED) 81 MG PO (09:07)
[2024-08-27] MEDS: NORVASC 5 MG PO (09:08)
[2024-08-27] MEDS: DUPHALAC/CHRONULAC PO ×2 (09:08→15:20)
[2024-08-27] MEDS: HEPARIN 5000 UNITS SC ×2 (09:08→21:11)
--- NOTE | 2024-08-27 11:19 | CM ---
CM reviewed chart, patient awaiting level two assessment from [facility] for SNF placement. CM will continue to follow for all discharge planning needs.
Plan; awaiting level two assessment.
[2024-08-27 11:48] LABS: Glucose - Point of Care 210 mg/dl (70-99)
[2024-08-27] MEDS: NOVOLOG FLEXPEN-LOW RESISTANCE 2 UNITS SC ×2 (13:02→17:35)
--- NOTE | 2024-08-27 14:23 | W.PN.HOSP.TC ---
Today's Communication/Plan
-
Discharge to SNF when level 2 assessment complete
Assessment / Plan
Assessment / Plan
#Acute traumatic Patellar fracture
-X-ray with nondisplaced vertical fracture along the medial patella with associated moderate joint effusion/prepatellar soft tissue swelling
-has left knee immobilizer; he is to follow-up with orthopedics outpatient. Could not manage at home with crutches. PT/OT. Case management
-Discussed with Dr. Khalil from orthopedics, fracture is very nonoperative. Patient is allowed weightbearing as tolerated
-Remains on analgesic regimen with Tylenol and tramadol
-Per case investigator need level 2 assessment for SNF. Evaluated by psych, no contraindications to SNF
-Pending placement to SNF
#Reported seizure
-Event occurred on 08/20 while in the hospital, broke with IV Ativan
-First episode, was evaluated by neurology, no indication for standing antiepileptic regimen
-Status post Keppra load, now not on any AED
-CT head negative, MRI with possible old infarction and no acute finding
-EEG noted
#Hyponatremia
-Mild, sodium in the low-mid 130s
-Possible SIADH secondary to pain
-Continue to trend BMP
#Wernicke's encephalopathy
#EtOH abuse
-Continue lactulose, Seroquel, trazodone
-Continue thiamine supplementation
-No signs of current alcohol withdrawal here
#Chronic thrombocytopenia
#Suspected liver cirrhosis
-Has alcohol abuse history
-Trend CBC here
-Will need to follow-up with GI as outpatient
#History of former cocaine/alcohol use disorder
#Type 2 diabetes
-Insulin-dependent, Home meds include long-acting and short acting insulin
-Had hypoglycemia noted per labs on 08/19, insulin was de-escalated
-Remains on ISS with Accu-Cheks here
-BG goal 140�180, avoid hypoglycemia
#Hypertension
-Continue amlodipine, Coreg
-Continue spironolactone
#current Smoker
-Encourage cessation
CODE STATUS: Full code
Diet: Regular
DVT prophylaxis: Subcutaneous heparin
Medically stable for discharge to SNF once level 2 assessment complete, insurance authorized, and bed available
Anticipated Discharge: Within 24 hours
Subjective/Interval History
-
Date of Service: August 27, 2024
Seen and examined at the bedside. No acute events reported overnight. AFVSS this morning.
Pending evaluation by [facility] as part of level 2 assessment. Otherwise stable for SNF
Denies acute complaints
Objective Data
-
Vital Signs:
Vital Signs
Temp Pulse Resp BP Pulse Ox
98.3 F 76 20 130/81 99
08/27/24 07:14 08/27/24 07:14 08/27/24 07:14 08/27/24 07:14 08/27/24 07:14
I&O
08/26/24 08/27/24 08/28/24
06:59 06:59 06:59
Intake Total 0 / 2040 2160 / 2160
Output Total 4300 / 4300 2325 / 2325
Balance -2260 / -2260 -165 / -165
Review of Systems
-
History Source: Patient
All other systems: Reviewed and negative
Physical Exam
-
General: Well Developed, Well Nourished, No Apparent Distress and Comfortable
HEENT: Normocephalic, Atraumatic, Moist Mucous Membranes and Anicteric
Respiratory: Clear to Auscultation and Non Labored Respirations
Cardiac: Regular Rhythm and S1/S2; Negative Murmur, Rub or Gallop
GI: Soft, Nontender, Nondistended and Normal Bowel Sounds
Musculoskeletal: No Clubbing, No Cyanosis and No Edema
Skin: Warm, Dry and Normal Turgor; Negative Rash or Jaundice
Neuro: AO x 3 and Nonfocal/Grossly Intact; Negative Tremors
Psych: Calm
[2024-08-27 15:06] VITALS: BP 120/77
[2024-08-27 15:42] LABS: Glucose - Point of Care 254 mg/dl (70-99)
[2024-08-27 17:28] LABS: Glucose - Point of Care 243 mg/dl (70-99)
[2024-08-27] MEDS: DESYREL 100 MG PO (21:10)
[2024-08-27] MEDS: DUPHALAC/CHRONULAC 20 GRAMS PO (21:11)
[2024-08-27] MEDS: SEROQUEL 300 MG PO (21:15)
[2024-08-27 21:58] LABS: Glucose - Point of Care 242 mg/dl (70-99)
[2024-08-27] MEDS: LANTUS 0.45 UNITS SC (22:17)
[2024-08-27 23:06] VITALS: BP 149/87
[2024-08-28] MEDS: ULTRAM 25 MG PO ×3 (05:04→21:28)
[2024-08-28 07:00] VITALS: BP 127/84
[2024-08-28 07:57] LABS: Glucose - Point of Care 175 mg/dl (70-99)
[2024-08-28] MEDS: COREG 6.25 MG PO ×2 (08:11→20:27)
[2024-08-28] MEDS: DUPHALAC/CHRONULAC 20 GRAMS PO ×3 (08:11→20:27)
[2024-08-28] MEDS: NICODERM TRANSDERMAL 14 MG TRANSDERM (08:11)
[2024-08-28] MEDS: ASPIR LOW (ENTERIC COATED) 81 MG PO (08:12)
[2024-08-28] MEDS: NORVASC 5 MG PO (08:12)
[2024-08-28] MEDS: VITAMIN B1 100 MG PO (08:12)
[2024-08-28] MEDS: FOLVITE 1 MG PO (08:12)
[2024-08-28] MEDS: LIDOCAINE 4% PATCH 1 PATCH TOPICAL (08:12)
[2024-08-28] MEDS: ALDACTONE 100 MG PO (08:12)
[2024-08-28] MEDS: HEPARIN 5000 UNITS SC ×2 (08:13→20:27)
[2024-08-28] MEDS: NOVOLOG FLEXPEN-LOW RESISTANCE 1 UNITS SC (10:26)
[2024-08-28] MEDS: NOVOLOG FLEXPEN 18 UNITS SC ×3 (10:26→17:32)
[2024-08-28 11:55] LABS: Glucose - Point of Care 233 mg/dl (70-99)
[2024-08-28] MEDS: NOVOLOG FLEXPEN-LOW RESISTANCE 2 UNITS SC (13:58)
[2024-08-28 15:00] VITALS: BP 135/81
--- NOTE | 2024-08-28 15:40 | W.PN.HOSP.TC ---
Today's Communication/Plan
-
Pending level 2 assessment for placement at SNF
Assessment / Plan
Assessment / Plan
#Acute traumatic Patellar fracture
-X-ray with nondisplaced vertical fracture along the medial patella with associated moderate joint effusion/prepatellar soft tissue swelling
-has left knee immobilizer; he is to follow-up with orthopedics outpatient. Could not manage at home with crutches. PT/OT. Case management
-Discussed with Dr. Khalil from orthopedics, fracture is very nonoperative. Patient is allowed weightbearing as tolerated
-Remains on analgesic regimen with Tylenol and tramadol
-Per embedded case manager need level 2 assessment for SNF. Evaluated by psych, no contraindications to SNF
-Pending placement to SNF
#Reported seizure
-Event occurred on 08/20 while in the hospital, broke with IV Ativan
-First episode, was evaluated by neurology, no indication for standing antiepileptic regimen
-Status post Keppra load, now not on any AED
-CT head negative, MRI with possible old infarction and no acute finding
-EEG noted
#Hyponatremia
-Mild, sodium in the low-mid 130s
-Possible SIADH secondary to pain
-Continue to trend BMP
#Wernicke's encephalopathy
#EtOH abuse
-Continue lactulose, Seroquel, trazodone
-Continue thiamine supplementation
-No signs of current alcohol withdrawal here
#Chronic thrombocytopenia
#Suspected liver cirrhosis
-Has alcohol abuse history
-Trend CBC here
-Will need to follow-up with GI as outpatient
#History of former cocaine/alcohol use disorder
#Type 2 diabetes
-Insulin-dependent, Home meds include long-acting and short acting insulin
-Had hypoglycemia noted per labs on 08/19, insulin was de-escalated
-Remains on ISS with Accu-Cheks here
-BG goal 140�180, avoid hypoglycemia
#Hypertension
-Continue amlodipine, Coreg
-Continue spironolactone
#current Smoker
-Encourage cessation
CODE STATUS: Full code
Diet: Regular
DVT prophylaxis: Subcutaneous heparin
Medically stable for discharge to SNF once level 2 assessment complete, insurance authorized, and bed available. Per embedded case manager this process will unlikely be completed before 09/01/2024
Anticipated Discharge: > 48 hours
Subjective/Interval History
-
Date of Service: August 28, 2024
Seen and examined at the bedside. No acute events reported overnight. AFVSS today
Reportedly, level 2 assessment to be completed by County official today at 11 AM
Patient denies any acute complaints
Objective Data
-
Vital Signs:
Vital Signs
Temp Pulse Resp BP Pulse Ox
98.0 F 75 24 135/81 100
08/28/24 15:00 08/28/24 15:00 08/28/24 15:00 08/28/24 15:00 08/28/24 15:00
I&O
08/27/24 08/28/24 08/29/24
06:59 06:59 06:59
Intake Total 2160 / 2160 2160 / 2160
Output Total 2325 / 2325 2725 / 2725
Balance -165 / -165 -565 / -565
Review of Systems
-
History Source: Patient
All other systems: Reviewed and negative
Physical Exam
-
General: Well Developed, Well Nourished, No Apparent Distress and Comfortable
HEENT: Normocephalic, Atraumatic and Moist Mucous Membranes
Respiratory: Clear to Auscultation and Non Labored Respirations
Cardiac: Regular Rhythm and S1/S2; Negative Murmur, Rub or Gallop
GI: Soft, Nontender, Nondistended and Normal Bowel Sounds
Musculoskeletal: No Clubbing, No Cyanosis and No Edema
Skin: Warm, Dry and Normal Turgor; Negative Rash
Neuro: AO x 3 and Nonfocal/Grossly Intact
Psych: Calm
[2024-08-28] MEDS: ROXICODONE 5 MG PO (17:00)
[2024-08-28 17:11] LABS: Glucose - Point of Care 105 mg/dl (70-99)
[2024-08-28] MEDS: NOVOLOG FLEXPEN-LOW RESISTANCE SC (17:12)
[2024-08-28] MEDS: DESYREL 100 MG PO (20:27)
[2024-08-28] MEDS: SEROQUEL 300 MG PO (20:27)
[2024-08-28 21:03] LABS: Glucose - Point of Care 125 mg/dl (70-99)
[2024-08-28] MEDS: LANTUS 0.45 UNITS SC (21:29)
[2024-08-28 23:00] VITALS: BP 123/76
[2024-08-29] MEDS: ULTRAM PO (05:48)
[2024-08-29 07:00] VITALS: BP 133/75
[2024-08-29 07:07] LABS: Glucose - Point of Care 133 mg/dl (70-99)
[2024-08-29] MEDS: NOVOLOG FLEXPEN-LOW RESISTANCE SC ×3 (07:12→15:45)
[2024-08-29] MEDS: NOVOLOG FLEXPEN 18 UNITS SC ×3 (07:24→15:45)
[2024-08-29] MEDS: NICODERM TRANSDERMAL 14 MG TRANSDERM (07:24)
[2024-08-29] MEDS: HEPARIN 5000 UNITS SC ×2 (07:25→20:03)
[2024-08-29] MEDS: LIDOCAINE 4% PATCH 1 PATCH TOPICAL (07:25)
[2024-08-29] MEDS: DUPHALAC/CHRONULAC 20 GRAMS PO ×3 (07:25→20:04)
[2024-08-29] MEDS: ALDACTONE 100 MG PO (07:26)
[2024-08-29] MEDS: FOLVITE 1 MG PO (07:27)
[2024-08-29] MEDS: ASPIR LOW (ENTERIC COATED) 81 MG PO (07:27)
[2024-08-29] MEDS: NORVASC 5 MG PO (07:27)
[2024-08-29] MEDS: VITAMIN B1 100 MG PO (07:27)
[2024-08-29] MEDS: COREG 6.25 MG PO ×2 (07:27→20:04)
[2024-08-29 11:40] LABS: Glucose - Point of Care 147 mg/dl (70-99)
[2024-08-29] MEDS: ULTRAM 25 MG PO ×2 (12:34→21:58)
--- NOTE | 2024-08-29 12:49 | W.PN.HOSP.TC ---
Today's Communication/Plan
-
SNF when approved
Assessment / Plan
Assessment / Plan
#Acute traumatic Patellar fracture
-X-ray with nondisplaced vertical fracture along the medial patella with associated moderate joint effusion/prepatellar soft tissue swelling
-has left knee immobilizer; he is to follow-up with orthopedics outpatient. Could not manage at home with crutches. PT/OT. Case management
-Discussed with Dr. Khalil from orthopedics, fracture is very nonoperative. Patient is allowed weightbearing as tolerated
-Remains on analgesic regimen with Tylenol and tramadol
-Per medical billing manager need level 2 assessment for SNF. Evaluated by psych, no contraindications to SNF
-Pending placement to SNF
#Reported seizure
-Event occurred on 08/20 while in the hospital, broke with IV Ativan
-First episode, was evaluated by neurology, no indication for standing antiepileptic regimen
-Status post Keppra load, now not on any AED
-CT head negative, MRI with possible old infarction and no acute finding
-EEG noted
#Hyponatremia
-Mild, sodium in the low-mid 130s
-Possible SIADH secondary to pain
-Continue to trend BMP
#Wernicke's encephalopathy
#EtOH abuse
-Continue lactulose, Seroquel, trazodone
-Continue thiamine supplementation
-No signs of current alcohol withdrawal here
#Chronic thrombocytopenia
#Suspected liver cirrhosis
-Has alcohol abuse history
-Trend CBC here
-Will need to follow-up with GI as outpatient
#History of former cocaine/alcohol use disorder
#Type 2 diabetes
-Insulin-dependent, Home meds include long-acting and short acting insulin
-Had hypoglycemia noted per labs on 08/19, insulin was de-escalated
-Remains on ISS with Accu-Cheks here
-BG goal 140�180, avoid hypoglycemia
#Hypertension
-Continue amlodipine, Coreg
-Continue spironolactone
#current Smoker
-Encourage cessation
CODE STATUS: Full code
Diet: Regular
DVT prophylaxis: Subcutaneous heparin
Medically stable for discharge to SNF once level 2 assessment complete, insurance authorized, and bed available. Per medical billing manager this process will unlikely be completed before 09/01/2024
Anticipated Discharge: > 48 hours
Subjective/Interval History
-
Date of Service: August 29, 2024
Seen and examined at the bedside. No acute events reported overnight. AFVSS this morning
States oxycodone helped with his pain
Denies any new complaints
Objective Data
-
Vital Signs:
Vital Signs
Temp Pulse Resp BP Pulse Ox
98.3 F 70 16 133/75 98
08/29/24 07:00 08/29/24 07:00 08/29/24 07:00 08/29/24 07:00 08/29/24 07:00
I&O
08/28/24 08/29/24 08/30/24
06:59 06:59 06:59
Intake Total 2160 / 2160 960 / 960
Output Total 2725 / 2725 2675 / 2675
Balance -565 / -565 -1715 / -1715
Review of Systems
-
History Source: Patient
All other systems: Reviewed and negative
Physical Exam
-
General: Well Developed, Well Nourished, No Apparent Distress and Comfortable
HEENT: Normocephalic, Atraumatic, Moist Mucous Membranes and Anicteric
Respiratory: Clear to Auscultation and Non Labored Respirations
Cardiac: Regular Rhythm and S1/S2
GI: Soft, Nontender, Nondistended and Normal Bowel Sounds
Musculoskeletal: No Clubbing, No Cyanosis, No Edema and Other (Left knee immobilizer in place)
Skin: Warm and Dry
Neuro: AO x 3
Psych: Calm
[2024-08-29 15:00] VITALS: BP 130/80
--- NOTE | 2024-08-29 15:49 | CM ---
CM reviewed chart, received letter from [facility] (OBRA determination letter), patient does not require further view by office. Patient seen bedside, agreeable to referrals to local facilities. Patient will require insurance authorization once facility
found. CM will continue to follow for all discharge planning needs.
Plan; SNF once facility found, will require insurance auth.
[2024-08-29 16:29] LABS: Glucose - Point of Care 175 mg/dl (70-99)
[2024-08-29 18:22] LABS: Glucose - Point of Care 79 mg/dl (70-99)
[2024-08-29] MEDS: ROXICODONE 5 MG PO (20:02)
[2024-08-29] MEDS: SEROQUEL 300 MG PO (20:03)
[2024-08-29] MEDS: DESYREL 100 MG PO (20:03)
[2024-08-29 21:54] LABS: Glucose - Point of Care 271 mg/dl (70-99)
[2024-08-29] MEDS: LANTUS 0.45 UNITS SC (21:58)
[2024-08-29 23:05] VITALS: BP 142/89
[2024-08-30] MEDS: ULTRAM PO (05:45)
[2024-08-30 07:00] VITALS: BP 133/83
[2024-08-30 08:23] LABS: Glucose - Point of Care 179 mg/dl (70-99)
[2024-08-30] MEDS: ALDACTONE 100 MG PO (09:09)
[2024-08-30] MEDS: DUPHALAC/CHRONULAC 20 GRAMS PO (09:09)
[2024-08-30] MEDS: COREG 6.25 MG PO ×2 (09:10→21:15)
[2024-08-30] MEDS: NICODERM TRANSDERMAL 14 MG TRANSDERM (09:10)
[2024-08-30] MEDS: ASPIR LOW (ENTERIC COATED) 81 MG PO (09:10)
[2024-08-30] MEDS: VITAMIN B1 100 MG PO (09:10)
[2024-08-30] MEDS: ROXICODONE 5 MG PO ×2 (09:10→17:40)
[2024-08-30] MEDS: NORVASC 5 MG PO (09:10)
[2024-08-30] MEDS: HEPARIN 5000 UNITS SC ×2 (09:11→21:15)
[2024-08-30] MEDS: LIDOCAINE 4% PATCH 1 PATCH TOPICAL (09:11)
[2024-08-30] MEDS: FOLVITE 1 MG PO (09:11)
[2024-08-30] MEDS: NOVOLOG FLEXPEN 18 UNITS SC ×3 (09:11→17:33)
[2024-08-30] MEDS: NOVOLOG FLEXPEN-LOW RESISTANCE 1 UNITS SC (09:12)
[2024-08-30 11:54] LABS: Glucose - Point of Care 278 mg/dl (70-99)
[2024-08-30] MEDS: ULTRAM 25 MG PO ×2 (13:29→21:10)
[2024-08-30] MEDS: MIRALAX 17 GRAMS PO (13:29)
[2024-08-30] MEDS: NOVOLOG FLEXPEN-LOW RESISTANCE 3 UNITS SC (13:31)
--- NOTE | 2024-08-30 14:25 | W.PN.HOSP.TC ---
Today's Communication/Plan
-
Increase Lantus to 50 units
Continue Accu-Cheks
SNF likely on Sunday
Assessment / Plan
Assessment / Plan
#Acute traumatic Patellar fracture
-X-ray with nondisplaced vertical fracture along the medial patella with associated moderate joint effusion/prepatellar soft tissue swelling
-has left knee immobilizer; he is to follow-up with orthopedics outpatient. Could not manage at home with crutches. PT/OT. Case management
-Discussed with Dr. Khalil from orthopedics, fracture is very nonoperative. Patient is allowed weightbearing as tolerated
-Remains on analgesic regimen with Tylenol and tramadol
-Per telehealth case manager need level 2 assessment for SNF. Evaluated by psych, no contraindications to SNF
-Pending placement to SNF
#Reported seizure
-Event occurred on 08/20 while in the hospital, broke with IV Ativan
-First episode, was evaluated by neurology, no indication for standing antiepileptic regimen
-Status post Keppra load, now not on any AED
-CT head negative, MRI with possible old infarction and no acute finding
-EEG with generalized cerebral slowing
#Hyponatremia
-Mild, sodium in the low-mid 130s
-Possible SIADH secondary to pain
-stable
#Wernicke's encephalopathy
#EtOH abuse
-Continue lactulose, Seroquel, trazodone
-Continue thiamine supplementation
-No signs of current alcohol withdrawal here
#Chronic thrombocytopenia
#Suspected liver cirrhosis
-Has alcohol abuse history
-Trend CBC here
-Will need to follow-up with GI as outpatient
#History of former cocaine/alcohol use disorder
#Type 2 diabetes
-Insulin-dependent, Home meds include long-acting and short acting insulin
-Had hypoglycemia noted per labs on 08/19, insulin was de-escalated but remains hyperglycemic
-Remains on ISS with Accu-Cheks here
-Lantus dose increased to 50 units
-BG goal 140�180, avoid hypoglycemia
#Hypertension
-Continue amlodipine, Coreg
-Continue spironolactone
#current Smoker
-Encourage cessation
CODE STATUS: Full code
Diet: Regular
DVT prophylaxis: Subcutaneous heparin
Medically stable for discharge to SNF once level 2 assessment complete, insurance authorized, and bed available. Per telehealth case manager this process will unlikely be completed before 09/01/2024
Anticipated Discharge: > 48 hours
Subjective/Interval History
-
Date of Service: August 30, 2024
Seen and examined at the bedside. No acute events reported overnight. AFVSS this morning
States oxycodone helped with his pain
Denies any new complaints
Objective Data
-
Vital Signs:
Vital Signs
Temp Pulse Resp BP Pulse Ox
98.3 F 72 20 133/83 97
08/30/24 07:00 08/30/24 07:00 08/30/24 07:00 08/30/24 07:00 08/30/24 07:00
I&O
08/29/24 08/30/24 08/31/24
06:59 06:59 06:59
Intake Total 960 / 960 2460 / 2460
Output Total 2675 / 2675 2975 / 2975
Balance -1715 / -1715 -515 / -515
Review of Systems
-
History Source: Patient
All other systems: Reviewed and negative
Physical Exam
-
General: Well Developed, Well Nourished, No Apparent Distress and Comfortable
HEENT: Normocephalic, Atraumatic, Moist Mucous Membranes and Anicteric
Respiratory: Clear to Auscultation and Non Labored Respirations
Cardiac: Regular Rhythm and S1/S2; Negative Murmur, Rub or Gallop
GI: Soft, Nontender, Nondistended and Normal Bowel Sounds
Musculoskeletal: No Clubbing, No Cyanosis and No Edema
Skin: Warm, Dry and Normal Turgor; Negative Rash
Neuro: AO x 3 and Nonfocal/Grossly Intact
Psych: Calm
[2024-08-30 15:00] VITALS: BP 125/79
[2024-08-30] MEDS: DUPHALAC/CHRONULAC PO ×2 (15:44→22:01)
[2024-08-30 16:38] LABS: Glucose - Point of Care 215 mg/dl (70-99)
[2024-08-30] MEDS: NOVOLOG FLEXPEN-LOW RESISTANCE 2 UNITS SC (17:33)
[2024-08-30] MEDS: SEROQUEL 300 MG PO (21:15)
[2024-08-30] MEDS: DESYREL 100 MG PO (21:15)
[2024-08-30 21:20] LABS: Glucose - Point of Care 238 mg/dl (70-99)
[2024-08-30] MEDS: TYLENOL 650 MG PO (21:30)
[2024-08-30] MEDS: LANTUS 0.5 UNITS SC (21:39)
[2024-08-30 23:05] VITALS: BP 106/68
[2024-08-31] MEDS: ULTRAM 25 MG PO ×3 (05:18→21:26)
[2024-08-31 07:00] VITALS: BP 136/80
[2024-08-31 08:24] LABS: Glucose - Point of Care 175 mg/dl (70-99)
[2024-08-31 08:25] LABS: Blood Urea Nitrogen 27 mg/dl (9-20); Calcium 9.7 mg/dl (8.4-10.2); Carbon Dioxide 18 mmol/L (22-30); Chloride 107 mmol/L (98-107); Estimated Creatinine Clearance 89 ml/min; Glucose 179 mg/dl (70-99); Potassium 4.6 mmol/L (3.5-5.1); Sodium 132 mmol/L (135-145); eGFR > 60.00
[2024-08-31] MEDS: NOVOLOG FLEXPEN 18 UNITS SC ×3 (08:38→16:39)
[2024-08-31] MEDS: NOVOLOG FLEXPEN-LOW RESISTANCE 1 UNITS SC (08:38)
[2024-08-31] MEDS: COREG 6.25 MG PO ×2 (08:39→20:11)
[2024-08-31] MEDS: DUPHALAC/CHRONULAC 20 GRAMS PO (08:39)
[2024-08-31] MEDS: HEPARIN 5000 UNITS SC ×2 (08:39→20:11)
[2024-08-31] MEDS: ASPIR LOW (ENTERIC COATED) 81 MG PO (08:40)
[2024-08-31] MEDS: VITAMIN B1 100 MG PO (08:40)
[2024-08-31] MEDS: LIDOCAINE 4% PATCH 1 PATCH TOPICAL (08:40)
[2024-08-31] MEDS: NORVASC 5 MG PO (08:40)
[2024-08-31] MEDS: FOLVITE 1 MG PO (08:40)
[2024-08-31] MEDS: ALDACTONE 100 MG PO (08:40)
[2024-08-31] MEDS: NICODERM TRANSDERMAL 14 MG TRANSDERM (08:41)
[2024-08-31] MEDS: ROXICODONE 5 MG PO ×2 (10:12→20:10)
[2024-08-31 12:05] LABS: Glucose - Point of Care 145 mg/dl (70-99)
[2024-08-31] MEDS: NOVOLOG FLEXPEN-LOW RESISTANCE SC ×2 (12:08→16:39)
--- NOTE | 2024-08-31 12:14 | W.PN.HOSP.TC ---
Today's Communication/Plan
-
Discharge to SNF tomorrow
Assessment / Plan
Assessment / Plan
#Acute traumatic Patellar fracture
-X-ray with nondisplaced vertical fracture along the medial patella with associated moderate joint effusion/prepatellar soft tissue swelling
-has left knee immobilizer; he is to follow-up with orthopedics outpatient. Could not manage at home with crutches. PT/OT. Case management
-Discussed with Dr. Khalil from orthopedics, fracture is very nonoperative. Patient is allowed weightbearing as tolerated
-Remains on analgesic regimen with Tylenol and tramadol
-Per case supervisor need level 2 assessment for SNF. Evaluated by psych, no contraindications to SNF
-Pending placement to SNF
#Reported seizure
-Event occurred on 08/20 while in the hospital, broke with IV Ativan
-First episode, was evaluated by neurology, no indication for standing antiepileptic regimen
-Status post Keppra load, now not on any AED
-CT head negative, MRI with possible old infarction and no acute finding
-EEG with generalized cerebral slowing
#Hyponatremia
-Mild, sodium in the low-mid 130s
-Possible SIADH secondary to pain
-stable
#Wernicke's encephalopathy
#EtOH abuse
-Continue lactulose, Seroquel, trazodone
-Continue thiamine supplementation
-No signs of current alcohol withdrawal here
#Chronic thrombocytopenia
#Suspected liver cirrhosis
-Has alcohol abuse history
-Trend CBC here
-Will need to follow-up with GI as outpatient
#History of former cocaine/alcohol use disorder
#Type 2 diabetes
-Insulin-dependent, Home meds include long-acting and short acting insulin
-Had hypoglycemia noted per labs on 08/19, insulin was de-escalated but remains hyperglycemic
-Remains on ISS with Accu-Cheks here
-Lantus dose increased to 50 units
-BG goal 140�180, avoid hypoglycemia
#Hypertension
-Continue amlodipine, Coreg
-Continue spironolactone
#current Smoker
-Encourage cessation
CODE STATUS: Full code
Diet: Regular
DVT prophylaxis: Subcutaneous heparin
Medically stable for discharge to SNF once level 2 assessment complete, insurance authorized, and bed available. Per case supervisor this process will unlikely be completed before 09/01/2024
Anticipated Discharge: Within 24 hours
Subjective/Interval History
-
Date of Service: August 31, 2024
Seen and examined at the bedside. No acute events reported overnight. AFVSS today
Was able to walk the halls with nursing yesterday. Request to see case management for issues with his banking account
Denies any new complaints
Objective Data
-
Labs:
Laboratory Results
08/31/24
07:14
Sodium 132 L
Potassium 4.6
Chloride 107
Carbon Dioxide 18 L
BUN 27 H
Creatinine 1.1
Glucose 179 H
Calcium 9.7
Vital Signs:
Vital Signs
Temp Pulse Resp BP Pulse Ox
98.3 F 77 18 136/80 99
08/31/24 07:00 08/31/24 07:00 08/31/24 07:00 08/31/24 08:39 08/31/24 07:00
I&O
08/30/24 08/31/24 09/01/24
06:59 06:59 06:59
Intake Total 2460 / 2460 720 / 720 480 / 480
Output Total 2975 / 2975 1950 / 1950 1200 / 1200
Balance -515 / -515 -1230 / -1230 -720 / -720
Review of Systems
-
History Source: Patient
All other systems: Reviewed and negative
Physical Exam
-
General: Well Developed, Well Nourished, No Apparent Distress and Comfortable
HEENT: Normocephalic, Atraumatic and Moist Mucous Membranes
Respiratory: Clear to Auscultation and Non Labored Respirations
Cardiac: Regular Rhythm and S1/S2; Negative Murmur
GI: Soft, Nontender, Nondistended and Normal Bowel Sounds
Musculoskeletal: No Clubbing, No Cyanosis and No Edema
Skin: Warm, Dry and Normal Turgor; Negative Rash
Neuro: AO x 3 and Nonfocal/Grossly Intact
Psych: Calm
[2024-08-31] MEDS: TYLENOL 650 MG PO ×2 (13:26→21:26)
[2024-08-31 15:00] VITALS: BP 134/85
[2024-08-31] MEDS: DUPHALAC/CHRONULAC PO ×2 (15:33→21:28)
[2024-08-31 16:38] LABS: Glucose - Point of Care 140 mg/dl (70-99)
[2024-08-31 20:10] LABS: Glucose - Point of Care 111 mg/dl (70-99)
[2024-08-31] MEDS: LANTUS 0.5 UNITS SC (21:27)
[2024-08-31] MEDS: SEROQUEL 300 MG PO (21:27)
[2024-08-31] MEDS: DESYREL 100 MG PO (21:27)
[2024-08-31 21:28] LABS: Glucose - Point of Care 139 mg/dl (70-99)
[2024-08-31 23:00] VITALS: BP 149/85
[2024-09-01] MEDS: ULTRAM 25 MG PO ×3 (05:37→21:08)
[2024-09-01 07:19] VITALS: BP 119/74
[2024-09-01 07:56] LABS: Glucose - Point of Care 124 mg/dl (70-99)
[2024-09-01 09:24] VITALS: BP 124/78; PULSE 69; O2SAT 100
[2024-09-01] MEDS: NOVOLOG FLEXPEN-LOW RESISTANCE SC ×2 (10:30→18:47)
[2024-09-01] MEDS: NOVOLOG FLEXPEN 18 UNITS SC ×3 (10:32→18:48)
[2024-09-01] MEDS: ROXICODONE 5 MG PO ×2 (10:46→19:38)
[2024-09-01] MEDS: DUPHALAC/CHRONULAC 20 GRAMS PO ×2 (10:50→18:47)
[2024-09-01] MEDS: LIDOCAINE 4% PATCH 1 PATCH TOPICAL (10:50)
[2024-09-01] MEDS: COREG 6.25 MG PO ×2 (10:51→19:39)
[2024-09-01] MEDS: VITAMIN B1 100 MG PO (10:51)
[2024-09-01] MEDS: ASPIR LOW (ENTERIC COATED) 81 MG PO (10:51)
[2024-09-01] MEDS: ALDACTONE 100 MG PO (10:52)
[2024-09-01] MEDS: FOLVITE 1 MG PO (10:52)
[2024-09-01] MEDS: NICODERM TRANSDERMAL 14 MG TRANSDERM (10:52)
[2024-09-01] MEDS: NORVASC 5 MG PO (10:52)
[2024-09-01] MEDS: HEPARIN 5000 UNITS SC ×2 (10:55→19:37)
[2024-09-01] MEDS: TYLENOL 650 MG PO ×2 (11:03→19:38)
[2024-09-01 11:40] LABS: Glucose - Point of Care 272 mg/dl (70-99)
--- NOTE | 2024-09-01 12:27 | W.PN.HOSP.TC ---
Today's Communication/Plan
-
Monitor vital signs see plan
Discharge pending placement, supportive employment case manager aware
Pain Control
Assessment / Plan
Assessment / Plan
General: Well Developed, Well Nourished and No Apparent Distress
HEENT: NormoCephalic, Moist mucous membranes and Atraumatic
Respiratory: Clear
Cardiac: S1/S2 and Regular Rhythm; No Murmur or Rub
GI: Soft, Non Tender, Non Distended and Normal Bowel Sounds
Musculoskeletal: Left knee immobilizer
Neuro: Nonfocal/grossly intact
#Acute traumatic Patellar fracture
-X-ray with nondisplaced vertical fracture along the medial patella with associated moderate joint effusion/prepatellar soft tissue swelling
-has left knee immobilizer; he is to follow-up with orthopedics outpatient. Could not manage at home with crutches. PT/OT. Case management
-Discussed with Dr. Khalil from orthopedics, fracture is very nonoperative. Patient is allowed weightbearing as tolerated
-Remains on analgesic regimen with Tylenol and tramadol
-Per supportive employment case manager need level 2 assessment for SNF. Evaluated by psych, no contraindications to SNF
-Pending placement to SNF
#Reported seizure
-Event occurred on 08/20 while in the hospital, broke with IV Ativan
-First episode, was evaluated by neurology, no indication for standing antiepileptic regimen
-Status post Keppra load, now not on any AED
-CT head negative, MRI with possible old infarction and no acute finding
-EEG with generalized cerebral slowing
#Hyponatremia
-Mild, sodium in the low-mid 130s
-Possible SIADH secondary to pain
-stable
#Wernicke's encephalopathy
#EtOH abuse
-Continue lactulose, Seroquel, trazodone
-Continue thiamine supplementation
-No signs of current alcohol withdrawal here
#Chronic thrombocytopenia
#Suspected liver cirrhosis
-Has alcohol abuse history
-Trend CBC here
-Will need to follow-up with GI as outpatient
#History of former cocaine/alcohol use disorder
#Type 2 diabetes
-Insulin-dependent, Home meds include long-acting and short acting insulin
-Had hypoglycemia noted per labs on 08/19, insulin was de-escalated but remains hyperglycemic
-Remains on ISS with Accu-Cheks here
-Lantus dose increased to 50 units
-BG goal 140�180, avoid hypoglycemia
#Hypertension
-Continue amlodipine, Coreg
-Continue spironolactone
#current Smoker
-Encourage cessation
CODE STATUS: Full code
Diet: Regular
DVT prophylaxis: Subcutaneous heparin
Medically stable for discharge to SNF once level 2 assessment complete, insurance authorized, and bed available. horticultural farm manager aware
Anticipated Discharge: Today
Subjective/Interval History
-
Date of Service: September 01, 2024
Denies nausea
Objective Data
-
Vital Signs:
Vital Signs
Temp Pulse Resp BP Pulse Ox
98.3 F 68 16 119/74 97
09/01/24 07:19 09/01/24 07:19 09/01/24 07:19 09/01/24 07:19 09/01/24 07:19
I&O
08/31/24 09/01/24 09/02/24
06:59 06:59 06:59
Intake Total 720 / 720 1919 / 192
Output Total 1949 / 1949 3025 / 3025
Balance -1230 / -1230 -1105 / -1105
--- NOTE | 2024-09-01 12:51 | CM ---
Addendum entered by Brady Vega 09/01/24 14:28:
CM called [facility] ([phone]) to initiate auth for skilled rehab. CM spoke w/ Marta.
CM faxed clinicals to [phone], will await determination
Pending ref # [id number]
Original Note:
Chart reviewed for d/c planning. Pt possibly ready for d/c today.
Pt needs skilled rehab. Prev CM sent referrals to local facilities, pt does not have any preferences at this time.
[facility]. Discussed facility w/ pt at bedside. Pt appeared agreeable to facility and states he prefers a facility where he is allowed smoking.
Spoke w/ Sydnie[facility], confirmed SNF allows smoking but only at designated times.
Will need insurance auth. Need updated PT/OT notes, PT to see today
Updated hospitalist
[facility]
Report: [phone]

Plan: [facility] pending auth. CM will initiate auth once updated PT/OT notes are available
[2024-09-01 13:41] VITALS: BP 130/82; PULSE 74; O2SAT 99
[2024-09-01 15:03] LABS: Glucose - Point of Care 163 mg/dl (70-99)
[2024-09-01] MEDS: NOVOLOG FLEXPEN-LOW RESISTANCE 1 UNITS SC (15:03)
[2024-09-01 15:24] VITALS: BP 125/82
[2024-09-01 16:29] LABS: Glucose - Point of Care 122 mg/dl (70-99)
[2024-09-01 18:33] LABS: Glucose - Point of Care 91 mg/dl (70-99)
[2024-09-01 19:30] VITALS: BP 128/79
[2024-09-01 21:03] LABS: Glucose - Point of Care 114 mg/dl (70-99)
[2024-09-01] MEDS: SEROQUEL 300 MG PO (21:07)
[2024-09-01] MEDS: DUPHALAC/CHRONULAC PO (21:07)
[2024-09-01] MEDS: DESYREL 100 MG PO (21:07)
[2024-09-01] MEDS: LANTUS SC (21:07)
[2024-09-01 23:00] VITALS: BP 127/71
[2024-09-02] MEDS: ULTRAM 25 MG PO ×3 (05:45→21:17)
[2024-09-02 07:07] LABS: Glucose - Point of Care 151 mg/dl (70-99)
[2024-09-02 07:48] VITALS: BP 128/75
[2024-09-02] MEDS: LIDOCAINE 4% PATCH TOPICAL (09:39)
[2024-09-02] MEDS: VITAMIN B1 100 MG PO (09:40)
[2024-09-02] MEDS: ASPIR LOW (ENTERIC COATED) 81 MG PO (09:40)
[2024-09-02] MEDS: ROXICODONE 5 MG PO ×2 (09:41→21:24)
[2024-09-02] MEDS: COREG 6.25 MG PO ×2 (09:41→21:16)
[2024-09-02] MEDS: ALDACTONE 100 MG PO (09:42)
[2024-09-02] MEDS: NORVASC 5 MG PO (09:43)
[2024-09-02] MEDS: FOLVITE 1 MG PO (09:43)
[2024-09-02] MEDS: NICODERM TRANSDERMAL 14 MG TRANSDERM (09:44)
[2024-09-02] MEDS: HEPARIN 5000 UNITS SC ×2 (09:44→21:16)
[2024-09-02] MEDS: DUPHALAC/CHRONULAC 20 GRAMS PO ×2 (09:45→17:57)
[2024-09-02] MEDS: NOVOLOG FLEXPEN 18 UNITS SC ×3 (10:24→17:58)
[2024-09-02] MEDS: NOVOLOG FLEXPEN-LOW RESISTANCE 1 UNITS SC ×2 (10:24→14:02)
--- NOTE | 2024-09-02 11:40 | W.PN.HOSP.TC ---
Today's Communication/Plan
-
Monitor vital signs
see plan
Pending placement
Assessment / Plan
Assessment / Plan
General: Well Developed, Well Nourished and No Apparent Distress
HEENT: NormoCephalic, Moist mucous membranes and Atraumatic
Respiratory: Clear
Cardiac: S1/S2 and Regular Rhythm; No Murmur or Rub
GI: Soft, Non Tender, Non Distended and Normal Bowel Sounds
Musculoskeletal: Left knee immobilizer
Neuro: Nonfocal/grossly intact
#Acute traumatic Patellar fracture
-X-ray with nondisplaced vertical fracture along the medial patella with associated moderate joint effusion/prepatellar soft tissue swelling
-has left knee immobilizer; he is to follow-up with orthopedics outpatient. Could not manage at home with crutches. PT/OT. Case management
-Discussed with Dr. Khalil from orthopedics, fracture is very nonoperative. Patient is allowed weightbearing as tolerated
-Remains on analgesic regimen with Tylenol and tramadol
-Per top case assembler need level 2 assessment for SNF. Evaluated by psych, no contraindications to SNF
-Pending placement to SNF
#Reported seizure
-Event occurred on 08/20 while in the hospital, broke with IV Ativan
-First episode, was evaluated by neurology, no indication for standing antiepileptic regimen
-Status post Keppra load, now not on any AED
-CT head negative, MRI with possible old infarction and no acute finding
-EEG with generalized cerebral slowing
#Hyponatremia
-Mild, sodium in the low-mid 130s
-Possible SIADH secondary to pain
-stable
#Wernicke's encephalopathy
#EtOH abuse
-Continue lactulose, Seroquel, trazodone
-Continue thiamine supplementation
-No signs of current alcohol withdrawal here
#Chronic thrombocytopenia
#Suspected liver cirrhosis
-Has alcohol abuse history
-Trend CBC here
-Will need to follow-up with GI as outpatient
#History of former cocaine/alcohol use disorder
#Type 2 diabetes
-Insulin-dependent, Home meds include long-acting and short acting insulin
-Had hypoglycemia noted per labs on 08/19, insulin was de-escalated but remains hyperglycemic
-Remains on ISS with Accu-Cheks here
-Lantus dose increased to 50 units
-BG goal 140�180, avoid hypoglycemia
#Hypertension
-Continue amlodipine, Coreg
-Continue spironolactone
#current Smoker
-Encourage cessation
CODE STATUS: Full code
Diet: Regular
DVT prophylaxis: Subcutaneous heparin
Medically stable for discharge to SNF once level 2 assessment complete, insurance authorized, and bed available. global regulatory affairs manager aware. Apparently per top case assembler he had a placement however that is now canceled. Awaiting placement
Anticipated Discharge: Today
Subjective/Interval History
-
Date of Service: September 02, 2024
denies pain
Objective Data
-
Vital Signs:
Vital Signs
Temp Pulse Resp BP Pulse Ox
97.8 F 71 18 128/75 97
09/02/24 07:48 09/02/24 07:48 09/02/24 07:48 09/02/24 07:48 09/02/24 07:48
I&O
09/01/24 09/02/24 09/03/24
06:59 06:59 06:59
Intake Total 1919 / 1979
Output Total 3025 / 3025 1325 / 1325
Balance -1105 / -1105 655 / 655
--- NOTE | 2024-09-02 12:01 | CM ---
MOHAN received authorization for [facility], approved 09/01-09/03 auth #[id number], fax clinicals to [facility] [phone], p: [phone]. CM spoke with Sydnie in admissions at , per facility director, unable to accept patient due to
disposition after rehab.
Patient seen bedside, discussed additional referrals placed to facilities. CM discussed patients plan after rehab as facilities are inquiring about dispo plan, patient reports he would eventually like to have his own apartment, does have money saved
up. Patient reports feeling hopeless/depressed about current situation, CM offered support to patient, relayed to nurse and Hospitalist. Update to CM Director. CM will continue to follow for all discharge planning needs.
Plan; SNF once accepting facility found, will require authorization.
[2024-09-02 13:10] LABS: Glucose - Point of Care 178 mg/dl (70-99)
[2024-09-02 15:23] VITALS: BP 126/7
[2024-09-02 16:00] VITALS: BP 115/71; PULSE 83; O2SAT 98
[2024-09-02 16:33] LABS: Glucose - Point of Care 97 mg/dl (70-99)
[2024-09-02] MEDS: NOVOLOG FLEXPEN-LOW RESISTANCE SC (17:57)
[2024-09-02 20:16] LABS: Glucose - Point of Care 88 mg/dl (70-99)
[2024-09-02 21:14] VITALS: BP 145/82
[2024-09-02] MEDS: DUPHALAC/CHRONULAC PO (21:15)
[2024-09-02] MEDS: LANTUS SC (21:15)
[2024-09-02] MEDS: DESYREL 100 MG PO (21:17)
[2024-09-02] MEDS: SEROQUEL 300 MG PO (21:17)
[2024-09-02 21:59] LABS: Glucose - Point of Care 173 mg/dl (70-99)
[2024-09-02 22:36] VITALS: BP 126/82
[2024-09-03] MEDS: ULTRAM PO (05:07)
[2024-09-03] MEDS: TYLENOL 650 MG PO (05:12)
[2024-09-03] MEDS: ROXICODONE 5 MG PO (05:24)
[2024-09-03 07:14] VITALS: BP 136/80
[2024-09-03 08:12] LABS: Glucose - Point of Care 226 mg/dl (70-99)
[2024-09-03] MEDS: NOVOLOG FLEXPEN 18 UNITS SC ×2 (08:59→13:04)
[2024-09-03] MEDS: NOVOLOG FLEXPEN-LOW RESISTANCE 2 UNITS SC (08:59)
[2024-09-03] MEDS: NICODERM TRANSDERMAL 14 MG TRANSDERM (09:06)
[2024-09-03] MEDS: LIDOCAINE 4% PATCH 1 PATCH TOPICAL (09:06)
[2024-09-03] MEDS: DUPHALAC/CHRONULAC 20 GRAMS PO (09:07)
[2024-09-03] MEDS: ASPIR LOW (ENTERIC COATED) 81 MG PO (09:08)
[2024-09-03] MEDS: VITAMIN B1 100 MG PO (09:08)
[2024-09-03] MEDS: ALDACTONE 100 MG PO (09:08)
[2024-09-03] MEDS: FOLVITE 1 MG PO (09:08)
[2024-09-03] MEDS: COREG 6.25 MG PO (09:08)
[2024-09-03] MEDS: HEPARIN 5000 UNITS SC (09:09)
[2024-09-03] MEDS: NORVASC 5 MG PO (09:09)
--- NOTE | 2024-09-03 11:53 | W.PN.HOSP.TC ---
Today's Communication/Plan
-
monitor vitals
see plan
dc today
pain control
ortho f/u outpatient
Time of discharge 36-minutes
Assessment / Plan
Assessment / Plan
General: Well Developed, Well Nourished and No Apparent Distress
HEENT: NormoCephalic, Moist mucous membranes and Atraumatic
Respiratory: Clear
Cardiac: S1/S2 and Regular Rhythm; No Murmur or Rub
GI: Soft, Non Tender, Non Distended and Normal Bowel Sounds
Musculoskeletal: Left knee immobilizer
Neuro: Nonfocal/grossly intact
#Acute traumatic Patellar fracture
-X-ray with nondisplaced vertical fracture along the medial patella with associated moderate joint effusion/prepatellar soft tissue swelling
-has left knee immobilizer; he is to follow-up with orthopedics outpatient. Could not manage at home with crutches. PT/OT. Case management
-Discussed with Dr. Khalil from orthopedics, fracture is very nonoperative. Patient is allowed weightbearing as tolerated
-Remains on analgesic regimen with Tylenol and tramadol
-Per clinical case manager need level 2 assessment for SNF. Evaluated by psych, no contraindications to SNF
-Pending placement to SNF
#Reported seizure
-Event occurred on 08/20 while in the hospital, broke with IV Ativan
-First episode, was evaluated by neurology, no indication for standing antiepileptic regimen
-Status post Keppra load, now not on any AED
-CT head negative, MRI with possible old infarction and no acute finding
-EEG with generalized cerebral slowing
#Hyponatremia
-Mild, sodium in the low-mid 130s
-Possible SIADH secondary to pain
-stable
#Wernicke's encephalopathy
#EtOH abuse
-Continue lactulose, Seroquel, trazodone
-Continue thiamine supplementation
-No signs of current alcohol withdrawal here
#Chronic thrombocytopenia
#Suspected liver cirrhosis
-Has alcohol abuse history
-Trend CBC here
-Will need to follow-up with GI as outpatient
#History of former cocaine/alcohol use disorder
#Type 2 diabetes
-Insulin-dependent, Home meds include long-acting and short acting insulin
-Had hypoglycemia noted per labs on 08/19, insulin was de-escalated but remains hyperglycemic
-Remains on ISS with Accu-Cheks here
-Lantus dose increased to 50 units
-BG goal 140�180, avoid hypoglycemia
#Hypertension
-Continue amlodipine, Coreg
-Continue spironolactone
#current Smoker
-Encourage cessation
CODE STATUS: Full code
Diet: Regular
DVT prophylaxis: Subcutaneous heparin
Medically stable for discharge to SNF once level 2 assessment complete, insurance authorized, and bed available. [employer] account manager aware. Apparently per clinical case manager he had a placement however that is now canceled.
DC today as has placement
Anticipated Discharge: Today
Subjective/Interval History
-
Date of Service: September 03, 2024
He denies nausea
Objective Data
-
Vital Signs:
Vital Signs
Temp Pulse Resp BP Pulse Ox
98.0 F 71 18 136/80 98
09/03/24 07:14 09/03/24 07:14 09/03/24 07:14 09/03/24 07:14 09/03/24 07:14
I&O
09/02/24 09/03/24 09/04/24
06:59 06:59 06:59
Intake Total 1979 / 1979 1620 / 1620
Output Total 1325 / 1325 1500 / 1500
Balance 655 / 655 120 / 120
--- NOTE | 2024-09-03 12:00 | CM ---
Chart reviewed. [facility] is able to accept pt today.
Current approved auth (09/01-09/03) remains valid if pt admits to facility today. Spoke veronica/ Chrissie/Kam confirming pt's d/c today and for facility to contact Sydnee Solis to update auth since today is next review date. Updates sent in [facility].
Updated hospitalist, agreeable to d/c today
Will need ambulance transport. Forms on chart
IMM reviewed, copy placed in chart
[facility]
Report: [phone]- ASK FOR NURSE SLIMER

Plan: [facility] SNF via ambulance
--- NOTE | 2024-09-03 12:09 | W.DCSUMMARY ---
Discharge Summary
Discharge Data
Date of Admission: 08/22/24
Date of Discharge: 09/03/24
-
Pending Results: No
Hospital Course
49-year-old male with past medical history of Warnicke encephalopathy, ethanol use, thrombocytopenia, liver cirrhosis, type 2 diabetes mellitus, hypertension came to the hospital after a fall with acute traumatic patellar fracture. Per orthopedics
recommendation fracture is nonoperative and patient had a immobilizer and was instructed to have weightbearing as tolerated. Patient was seen by physical therapy who recommended SNF. While patient was in the hospital he also had an episode of
possible seizure which was broken with Ativan. Patient was seen by neurology who did not recommended any further standing antiepileptic regimen since this is his first episode. CT scan and MRI did not show any acute findings however did show old
possible infarction. While patient was in the hospital his sugars was also very labile where his insulin was adjusted. Once patient symptoms continue to improve, he was then discharged to SNF with instructions to follow-up with all his other
physicians and orthopedics outpatient.
Discharge Plan
-
Patient Disposition: Fpc/SNF
Discharge Diagnosis/Procedures: Left Patellar fracture - nonoperable
Hyponatremia
Wernicke's encephalopathy
Chronic thrombocytopenia
Condition: Fair
Diet: No restrictions
Activity: As tolerated
Additional Activity: left knee brace per orthopedics referral
Driving Restrictions: As prior to admission
Bathing Restrictions: None
Other Services: PT
Activity Restrictions/Additional Instructions:
Follow up with primary care doctor 1-2 weeks after discharge
Instructions: Patella fracture
Referrals:
Peter Montes De Oca MD [Active] - in two to three weeks
UNKNOWN,NO INTERVIEW [Family Provider] - in less than 1 week
Prescriptions:
New
aspirin 81 mg Tablet,Delayed Release (Dr/Ec)
81 mg PO DAILY 30 Days Qty: 30 0RF
insulin aspart U-100 100 unit/mL (3 mL) Insulin Pen
18 unit SC AC 30 Days Qty: 16.2 0RF
nicotine 14 mg/24 hr Patch 24 Hour
14 mg transdermal DAILY Qty: 28 0RF
thiamine HCl (vitamin B1) 100 mg Tablet
100 mg PO DAILY 30 Days Qty: 30 0RF
tramadol 50 mg Tablet
25 mg PO Q8H 3 Days Qty: 5 0RF
folic acid 1 mg Tablet
1 mg PO DAILY Qty: 0 0RF
oxycodone 5 mg Tablet
5 mg PO Q8HPRN PRN (Reason: severe pain) Qty: 12 0RF
Continued
carvedilol [Coreg] 6.25 mg Tablet
6.25 mg PO BID
quetiapine [Seroquel] 300 mg Tablet
300 mg PO HS
spironolactone 100 mg Tablet
100 mg PO DAILY
amlodipine [Norvasc] 5 mg Tablet
5 mg PO DAILY
trazodone 100 mg Tablet
200 mg PO HS
lactulose 10 gram/15 mL Solution
20 g PO TID
insulin glargine [Basaglar KwikPen U-100 Insulin] 100 unit/mL (3 mL) Insulin Pen
50 unit SC HS
thiamine HCl (vitamin B1) 100 mg Tablet
100 mg PO DAILY
folic acid 1 mg Tablet
1 mg PO DAILY
lidocaine [Lidoderm] 5 % adhesive patch,medicated
1 patch topical DAILY
Discontinued
insulin lispro [Humalog U-100 Insulin] 100 unit/mL Solution
26 sliding scale dose SC AC
hydroxyzine pamoate 25 mg Capsule
50 mg PO DAILY
Discharge Orders:
Discharge Patient (As Directed); Ordered 09/03/24
Ordered By: John Ramos
Discharge Date and Time
Discharge Date/Time: 09/03/24 17:09
Print Language: EGYPTIAN
[2024-09-03 12:32] LABS: Glucose - Point of Care 171 mg/dl (70-99)
[2024-09-03] MEDS: NOVOLOG FLEXPEN-LOW RESISTANCE 1 UNITS SC (13:04)
[2024-09-03] MEDS: ULTRAM 25 MG PO (13:12)
[2024-09-03 15:00] VITALS: BP 129/77
[2024-09-03] MEDS: DUPHALAC/CHRONULAC PO (16:10)
== END 2024-09-03 17:09 | DRG 563 ==
LOC: 4 WEST ACU 09:20
PROVIDERS: Internal Medicine; Nurse Practitioner Family; ADMITTING PHYSICIAN Hospitalist; ATTENDING PHYSICIAN Internal Medicine; CONSULT PHYSICIAN Psychiatry & Neurology Clinical Neurophysiology; EMERGENCY PHYSICIAN Emergency Medicine; OTHER PHYSICIAN Psychiatry & Neurology Psychiatry
DX: S82.002A Unspecified fracture of left patella, initial encounter for closed fracture (principal); E51.2 Wernicke's encephalopathy; E87.1 Hypo-osmolality and hyponatremia; R56.9 Unspecified convulsions; I10 Essential (primary) hypertension; E11.9 Type 2 diabetes mellitus without complications; E87.6 Hypokalemia; F10.11 Alcohol abuse, in remission; F14.11 Cocaine abuse, in remission; R62.7 Adult failure to thrive; D69.6 Thrombocytopenia, unspecified; K74.60 Unspecified cirrhosis of liver; F17.210 Nicotine dependence, cigarettes, uncomplicated; W19.XXXA Unspecified fall, initial encounter; Z79.4 Long term (current) use of insulin; Z88.8 Allergy status to other drugs, medicaments and biological substances; Z86.73 Personal history of transient ischemic attack (TIA), and cerebral infarction without residual deficits
CPT/HCPCS: 70450; 70551; 80048; 80053; 80306; 82077; 82140; 82962; 83735; 84100; 84146; 84443; 84484; 85025; 85027; 85610; 85730; 87070; 93005; 95816; 96372; 97116; 97163; 97167; 97530; 97535; 99285; 99406

== ENCOUNTER 2024-09-18 07:38 | Emergency (ER) | payer OTHER, SELFPAY ==
[2024-09-18 07:54] VITALS: BP 125/80
[2024-09-18 07:58] LABS: Glucose - Point of Care 173 mg/dl (70-99)
--- NOTE | 2024-09-18 09:57 | ED.GENMED ---
History of Present Illness
General
Chief Complaint: Abdominal Symptoms
Source: patient
Exam Limitations: none
Time Seen by Provider: 09/18/24 09:37
History of Present Illness
History of Present Illness:
49-year-old male insulin-dependent type 2 diabetic presents with nausea vomiting onset this morning with increased pain to the left knee. He was here recently after a fall on his knee and was discovered to have a nondisplaced patellar fracture. He
was treated conservatively. He was told to be wearing a knee immobilizer. He has not really been wearing his brace. He fell again today on his knee. He denies any diarrhea or abdominal pain. No fever or chest pain. No other complaints
Past History
Past History
ED Past Medical History: IDDM
ED Past Surgical History: None
Social History
Tobacco: Non-smoker
Alcohol: Chronic alcoholic
Phy Exam
Physical Exam
Physical Exam:
General: Well-appearing male no acute respiratory distress HEENT: Normocephalic atraumatic
Chest heart: Regular rate and rhythm no murmurs lungs: Clear no wheeze
Abdomen is soft nontender nondistended no guarding or rebound musculoskeletal exam: Knee is slightly tender over the medial aspect of the patella no obvious effusion able to straight leg raise no deformity
Vascular: 2+ [place] pedis pulse left foot
Course
Orders/Labs/Results
Orders:
Orders
09/18/24 09:56
0.9% Sodium Chloride 1000 ml [Nss] 1,000 ml IV BOLUS
Ondansetron Injectable [Zofran] 4 mg IV NOW STA
CR Knee - Left 4 Or More View* Urgent
Comment:
Reason For Exam: fall, pain
09/18/24 10:12
Complete Blood Count/With Diff Urgent
09/18/24 11:29
Case Management Consult ONCE
Case Management Consult: Alcohol Withdrawl Risk
Discharge Planning
Other
Comment: Rehab placement. Pt reports sober since June 2024.
09/18/24 11:38
Comprehensive Metabolic Panel Urgent
Abnormal Lab Results
09/18/24 09/18/24 09/18/24
07:57 10:12 11:38
RBC 3.89 L 10^6/uL
(4.70-6.10)
Hgb 12.3 L g/dL
(13.0-18.0)
Hct 34.9 L %
(39.0-52.0)
MCH 31.6 H pg
(27.0-31.0)
Plt Count 125 L 10^3/uL
(130-400)
MPV 10.6 H fL
(7.4-10.4)
Abs Immat Gran (auto) 0.1 H 10^3/uL
(0-0.05)
Absolute Neuts (auto) 8.3 H 10^3/uL
(1.4-6.5)
Absolute Lymphs (auto) 0.7 L 10^3/uL
(1.2-3.4)
Immature Gran % 0.7 H %
(0-0.5)
Neutrophils % 81.4 H %
(42.2-75.2)
Lymphocytes % 7.3 L %
(20.5-51.1)
BUN 26 H mg/dl
(9-20)
Glucose 195 H mg/dl
(70-99)
ALT 64 H U/L
(0-50)
Alkaline Phosphatase 160 H U/L
(38-126)
Total Protein 5.9 L g/dl
(6.3-8.2)
Albumin 3.1 L g/dl
(3.5-5.0)
POC Glucose 173 H mg/dl
(70-99)
09/18/24 10:12
09/18/24 11:38
Vital Signs
Initial and Last Documented VS:
Initial Vital Signs
Temp Pulse Resp BP Pulse Ox
98.1 F 82 18 125/80 97
09/18/24 07:54 09/18/24 07:54 09/18/24 07:54 09/18/24 07:54 09/18/24 07:54
Last Documented Vital Signs
Temp Pulse Resp BP Pulse Ox
98.1 F 82 18 125/80 97
09/18/24 07:54 09/18/24 07:54 09/18/24 07:54 09/18/24 07:54 09/18/24 07:54
MDM/Problems Addressed
Differential Diagnosis Includes:
Nausea and vomiting onset this morning concern for electrolyte abnormality dehydration or hyperglycemia. Fingerstick sugar out of triage was 172.
Will check labs otherwise hydrate and give Zofran
second problem is fall with recurrent left knee pain. Known recent patella fracture. No obvious deformity on exam will recheck X-ray to evaluate for any displacement of the fracture or new injury
*Critical Care Note
Total Time (30-74mins, 75-104mins- exclusive of procedures): Not Applicable
Update Note
Update Note:
Labs reviewed. No significant finding. Patient was hydrated here. No vomiting here. X-ray of his knee shows no new findings. Patient request to speak with social work. Airtime was involved. No need for any acute rehab or detox at this time.
No indication for admission. Stable for discharge
ED Attending Note
-
Portions of this chart may have been created with voice recognition software.� Occasional wrong word or��sound alike� substitutions may have occurred due to the inherent limitations of voice recognition software.
Discharge Plan
Departure
Patient Disposition: Home (Routine Discharge)
Date of Disposition: 09/18/24
Time of Disposition: 13:03
Patient with high blood pressure during this ER visit?: No
Discharge Problem:
Nausea and vomiting
Instructions: Nausea and Vomiting, Adult (DC)
Prescriptions:
New
ondansetron 4 mg tablet,disintegrating
4 mg PO Q8H PRN (Reason: nausea and vomiting) Qty: 10 0RF
No Action
carvedilol [Coreg] 6.25 mg Tablet
6.25 mg PO BID
quetiapine [Seroquel] 300 mg Tablet
300 mg PO HS
spironolactone 100 mg Tablet
100 mg PO DAILY
amlodipine [Norvasc] 5 mg Tablet
5 mg PO DAILY
trazodone 100 mg Tablet
200 mg PO HS
lactulose 10 gram/15 mL Solution
20 g PO TID
insulin glargine [Basaglar KwikPen U-100 Insulin] 100 unit/mL (3 mL) Insulin Pen
50 unit SC HS
thiamine HCl (vitamin B1) 100 mg Tablet
100 mg PO DAILY
folic acid 1 mg Tablet
1 mg PO DAILY
lidocaine [Lidoderm] 5 % adhesive patch,medicated
1 patch topical DAILY
aspirin 81 mg Tablet,Delayed Release (Dr/Ec)
81 mg PO DAILY 30 Days Qty: 30 0RF
insulin aspart U-100 100 unit/mL (3 mL) Insulin Pen
18 unit SC AC 30 Days Qty: 16.2 0RF
nicotine 14 mg/24 hr Patch 24 Hour
14 mg transdermal DAILY Qty: 28 0RF
thiamine HCl (vitamin B1) 100 mg Tablet
100 mg PO DAILY 30 Days Qty: 30 0RF
tramadol 50 mg Tablet
25 mg PO Q8H 3 Days Qty: 5 0RF
folic acid 1 mg Tablet
1 mg PO DAILY Qty: 0 0RF
oxycodone 5 mg Tablet
5 mg PO Q8HPRN PRN (Reason: severe pain) Qty: 12 0RF
Referrals:
Toño Whitt MD [Family Provider] -
Activity Restrictions/Additional Instructions:
Using Zofran as needed for nausea. Drink plenty clear liquids. Return if worse otherwise follow-up with your doctor
Interventions
Interventions:
*Risk Screen - Suicide Last Done: 09/18/24 07:58
*Neglect/Abuse Screening Last Done: 09/18/24 07:58
[place]-Xkrkq[facility]-Ahsgwio[facility] Assessment Last Done: 09/18/24 10:17
Discharge Date and Time
Print Language: CROATIAN
[2024-09-18] MEDS: ZOFRAN 4 MG IV (10:13)
[2024-09-18] MEDS: NSS 1000 IV (10:13)
[2024-09-18 10:55] LABS: % Basophils 1.4 % (0-2); % Eosinophils 3.5 % (0-6); % Immature Granulocytes 0.7 % (0-0.5); % Lymphocytes 7.3 % (20.5-51.1); % Monocytes 5.7 % (1.7-9.3); % Neutrophils 81.4 % (42.2-75.2); Absolute Basophils 0.1 10^3/uL (0-0.2); Absolute Eosinophils 0.4 10^3/uL (0-0.7); Absolute Immature Granulocytes 0.1 10^3/uL (0-0.05); Absolute Lymphocytes 0.7 10^3/uL (1.2-3.4); Absolute Monocytes 0.6 10^3/uL (0.1-0.6); Absolute Neutrophils 8.3 10^3/uL (1.4-6.5); Hematocrit 34.9 % (39.0-52.0); Hemoglobin 12.3 g/dL (13.0-18.0); Mean Corp Hgb Conc. 35.2 g/dL (33.0-37.0); Mean Corpuscular Hgb 31.6 pg (27.0-31.0); Mean Corpuscular Volume 89.7 fL (80.0-94.0); Mean Platelet Volume 10.6 fL (7.4-10.4); Nucleated Red Blood Cells % 0 % (-); Platelet Count 125 10^3/uL (130-400); Red Blood Cell Count 3.89 10^6/uL (4.70-6.10); Red Cell Dist. Width 13.5 % (11.5-14.5); White Blood Cell Count 10.2 10^3/uL (4.8-10.8)
[2024-09-18 12:01] LABS: ALT (SGPT) 64 U/L (0-50); AST (SGOT) 54 U/L (17-59); Albumin 3.1 g/dl (3.5-5.0); Alkaline Phosphatase 160 U/L (38-126); Blood Urea Nitrogen 26 mg/dl (9-20); Calcium 8.6 mg/dl (8.4-10.2); Carbon Dioxide 23 mmol/L (22-30); Chloride 107 mmol/L (98-107); Glucose 195 mg/dl (70-99); Potassium 4.8 mmol/L (3.5-5.1); Sodium 136 mmol/L (135-145); Total Bilirubin 1.1 mg/dl (0.2-1.3); Total Protein 5.9 g/dl (6.3-8.2)
[2024-09-18 12:47] LABS: eGFR > 60.00
[2024-09-18 13:13] VITALS: BP 123/73
[2024-09-18 13:40] VITALS: BP 123/73
--- NOTE | 2024-09-18 14:25 | CM ---
Consult received for inpatient alcohol rehab .
Ke from [facility] spoke with pt .Pt has mery sober for 10 mon.and did not need rehab services.
Pt dx with fracture patella prior admission. Pt has not mery wearing knee immobilizer.
No PT OT ordered.
Pt was at [facility] for PT rehab in Aug 2024.
PLAN Pt discharge from ED
== END 2024-09-18 13:41 | disposition home or self-care (01) ==
LOC: EMR 07:38
PROVIDERS: Physician Assistant; EMERGENCY PHYSICIAN Emergency Medicine; FAMILY PHYSICIAN Family Medicine
DX: R11.2 Nausea with vomiting, unspecified (principal); E11.9 Type 2 diabetes mellitus without complications; Z79.4 Long term (current) use of insulin; M25.562 Pain in left knee; Z87.81 Personal history of (healed) traumatic fracture
CPT/HCPCS: 96374; 96361; 99284; 73564; 80053; 82962; 85025

== ENCOUNTER 2024-10-07 22:16 | Emergency (ER) | payer OTHER, SELFPAY ==
[2024-10-07 22:18] VITALS: BP 150/89
[2024-10-08 00:21] VITALS: BP 157/87
[2024-10-08 00:49] VITALS: BMI 26.5
[2024-10-08 01:00] VITALS: BP 145/87
[2024-10-08 02:01] VITALS: BP 159/86
--- NOTE | 2024-10-08 02:42 | DOWNTIME ---
There was a [employer] Client Regulatory Compliance Officer Downtime on 10/08/2024 from 0100 to 10/08/2023 at 0235 . Downtime documentation of patient's care, including medication administrations, has been reconciled in the electronic record per guidelines. Refer to the
patient's paper chart under the miscellaneous tab to see printed paper medication records and downtime forms.
[2024-10-08 02:43] VITALS: BP 142/82
--- NOTE | 2024-10-08 02:49 | ED.GENMED ---
History of Present Illness
General
Chief Complaint: Fall
Time Seen by Provider: 10/08/24 02:39
History of Present Illness
History of Present Illness:
Patient is 49-year-old male with history of back pain presenting to the emergency department after fall.� Patient states that he was walking when he hit his foot against a curb and fell landing on his bottom.� He not hit his head or lose
consciousness.� He is not on a blood thinner.� He is complaining of lower back pain.� Some paresthesia to his left lower extremity since the fall.� He was ambulatory.� No traumatic injuries from the fall
Past History
Past History
ED Past Medical History: IDDM
ED Past Surgical History: None
Social History
Tobacco: Non-smoker
Alcohol: Chronic alcoholic
Phy Exam
Physical Exam
Physical Exam:
GENERAL: no acute distress
HEENT: atraumatic
NECK: no midline tenderness, normal range of motion, NEXUS criteria negative, no other obvious trauma
BACK: no midline tenderness, mild right lower lumbar paraspinal tenderness with no obvious ecchymoses or no other obvious trauma
CHEST: no tenderness, no flail segment, no subcutaneous emphysema, no other obvious trauma
LUNGS: clear to auscultation bilaterally
CARDIOVASCULAR: regular rate and rhythm
ABDOMEN: soft, non-tender, no masses, no other obvious trauma
PELVIS: stable, no obvious injury
EXTREMITIES: moving all extremities, distal pulses intact, no other obvious trauma
NEUROLOGIC: awake, alert x 3, no focal deficits, strength intact in upper and lower extremities, no sensory deficits
Course
Orders/Labs/Results
Orders:
Orders
10/08/24 01:50
Ketorolac [Toradol] 15 mg .ROUTE .STK-MED ONE
Vital Signs
Initial and Last Documented VS:
Initial Vital Signs
Temp Pulse Resp BP Pulse Ox
97.9 F 101 18 150/89 100
10/07/24 22:18 10/07/24 22:18 10/07/24 22:18 10/07/24 22:18 10/07/24 22:18
Last Documented Vital Signs
Temp Pulse Resp BP Pulse Ox
97.9 F 101 18 142/82 99
10/07/24 22:18 10/07/24 22:18 10/07/24 22:18 10/08/24 02:43 10/08/24 02:45
MDM/Problems Addressed
Differential Diagnosis Includes:
49-year-old man presenting to the emergency department after a fall complaining of back pain.� Vitals unremarkable and on exam patient does have right lumbar paraspinal tenderness.� No midline tenderness.� No neurodeficits.� Likely MSK pain
secondary to the fall.� Given that there is no point tenderness less likely to be fracture.� Will pain control with Toradol and reassess.� Consider obtaining imaging however will hold off at this time given the patient is ambulatory with equal
strength and no sensory deficits and he does not have any point tenderness.
*Critical Care Note
Total Time (30-74mins, 75-104mins- exclusive of procedures): Not Applicable
Update Note
Update Note:
On reevaluation patient resting comfortably. Pain has slightly improved. Patient is fixated on obtaining an MRI. I did explain at length the patient does not need an MRI. We discussed the utility of an x-ray to evaluate his degenerative disc
disease however after shared decision making we will hold off on the x-ray. Patient does state that he has a fpc that he is going to but since it is 3 AM he would prefer to stay in the emergency department. I did educate patient unfortunately
we do not have people stay in these rooms but we can have him wait in the waiting room. Will give patient food as he states that he has not eaten since the morning. I did offer patient an outpatient MRI prescription however he states that he will
call his primary care doctor to have that scheduled. All questions answered. Patient stable for discharge at this time.
ED Attending Note
-
Portions of this chart may have been created with voice recognition software.� Occasional wrong word or��sound alike� substitutions may have occurred due to the inherent limitations of voice recognition software.
Discharge Plan
Departure
Patient Disposition: Home (Routine Discharge)
Date of Disposition: 10/08/24
Time of Disposition: 03:09
Patient with high blood pressure during this ER visit?: No
Discharge Problem:
Fall, Back pain
Instructions: Back exercises, Low back pain - ED discharge instructions
Prescriptions:
No Action
carvedilol [Coreg] 6.25 mg Tablet
6.25 mg PO BID
quetiapine [Seroquel] 300 mg Tablet
300 mg PO HS
spironolactone 100 mg Tablet
100 mg PO DAILY
amlodipine [Norvasc] 5 mg Tablet
5 mg PO DAILY
trazodone 100 mg Tablet
200 mg PO HS
lactulose 10 gram/15 mL Solution
20 g PO TID
insulin glargine [Basaglar KwikPen U-100 Insulin] 100 unit/mL (3 mL) Insulin Pen
50 unit SC HS
thiamine HCl (vitamin B1) 100 mg Tablet
100 mg PO DAILY
folic acid 1 mg Tablet
1 mg PO DAILY
lidocaine [Lidoderm] 5 % adhesive patch,medicated
1 patch topical DAILY
aspirin 81 mg Tablet,Delayed Release (Dr/Ec)
81 mg PO DAILY 30 Days Qty: 30 0RF
insulin aspart U-100 100 unit/mL (3 mL) Insulin Pen
18 unit SC AC 30 Days Qty: 16.2 0RF
nicotine 14 mg/24 hr Patch 24 Hour
14 mg transdermal DAILY Qty: 28 0RF
thiamine HCl (vitamin B1) 100 mg Tablet
100 mg PO DAILY 30 Days Qty: 30 0RF
tramadol 50 mg Tablet
25 mg PO Q8H 3 Days Qty: 5 0RF
folic acid 1 mg Tablet
1 mg PO DAILY Qty: 0 0RF
oxycodone 5 mg Tablet
5 mg PO Q8HPRN PRN (Reason: severe pain) Qty: 12 0RF
ondansetron 4 mg tablet,disintegrating
4 mg PO Q8H PRN (Reason: nausea and vomiting) Qty: 10 0RF
Referrals:
Toño Whitt MD [Family Provider] -
Interventions
Interventions:
*Risk Screen - Suicide Last Done: 10/07/24 22:18
*General Assessment Last Done: 10/07/24 22:18
*Neglect/Abuse Screening Last Done: 10/07/24 22:18
ED- Fall Risk Assessment Last Done: 10/08/24 02:42
*ED COVID-19 Vaccine History Last Done: 10/08/24 02:42
ED-Musculoskeletal Assessment Last Done: 10/08/24 02:42
ED- Neurological Assessment Last Done: 10/08/24 02:42
ED-Skin Assessment Last Done: 10/08/24 02:42
Discharge Date and Time
Print Language: ARGENTINE
== END 2024-10-08 04:02 | disposition home or self-care (01) ==
LOC: EMR 22:16
PROVIDERS: EMERGENCY PHYSICIAN Student in an Organized Health Care Education/Training Program; FAMILY PHYSICIAN Family Medicine
DX: M54.50 Low back pain, unspecified (principal); W19.XXXA Unspecified fall, initial encounter
CPT/HCPCS: 99282